=== PATIENT | male | born 1985 | race Caucasian/White ===

== ENCOUNTER 2016-06-21 10:31 | Emergency (ER) | payer MEDICAID ==
[2016-06-21 10:42] VITALS: BP 132/82; PULSE 90; RESP 16; TEMP 97.9; O2SAT 96
--- NOTE | 2016-06-21 11:24 | UCPHY ---
H & P Time Seen by Provider: 06/21/16 11:10 Patient Type: Established HPI/ROS: This patient presents with a chief complaint of pain, photophobia and swelling of the right eye which began during the night. He denies any URI symptoms including runny nose, sore throat, ear pain or cough. He has had no fever. He denies any trauma and does not wear contact lenses. His vision is normal. He denies any discharge Smoking Status: Current every day smoker Physical Exam: This is a well-developed well-nourished male who is in [id number] discomfort. He is alert, lucid and has normal mental status. Examination of the right eye reveals swelling of both lids with some mild injection and obvious photophobia. There is no discharge. Slit-lamp examination reveals an abrasion to the inferior part of the cornea which stains positively with fluorescein. Slit-lamp examination of the upper eyelid discloses no foreign bodies. Constitutional: Initial Vital Signs Temperature (C) 36.6 C 06/21/16 10:40 Heart Rate 90 06/21/16 10:40 Respiratory Rate 16 06/21/16 10:40 Blood Pressure 132/82 H 06/21/16 10:40 O2 Sat (%) 96 06/21/16 10:40 O2 Delivery Mode Room Air Allergies/Adverse Reactions: No Known Allergies Allergy (Verified 06/21/16 10:42) Home Medications: Medication Instructions Recorded GABAPENTIN 05/15/16 Gabapentin [Neurontin 300 MG (*)] 300 mg PO BID #24 cap 06/21/16 Medical Decision Making Differential Diagnosis: I do not believe that this patient has an infectious process but that his symptoms are related to the corneal abrasion is identified. Departure - Departure Disposition: Home, Routine, Self-Care Clinical Impression: Corneal abrasion Qualifiers: Laterality: right Condition: Good Instructions: Corneal Abrasion (ED) Additional Instructions: If your symptoms have not resolved in 3 days you should be re-evaluated. Adult Pain & Fever Control: We recommend Acetaminophen (Tylenol) and Ibuprofen (Motrin, Advil) for pain and fever control. When fever is high or pain severe, both drugs can be used at the same time, but at different intervals. Please note the time differences. Your dose is: Acetaminophen [650]mg every 4 to 6 hours ibuprofen [600]mg every [6] hours with food OR naproxen Sodium (Aleve) [440]mg every 12 hours. Note: do not take Acetaminophen with Hydrocodone (Vicodin, Lortab) or Oxycodone (Percocet). These medications also contain Acetaminophen. No more than 3000 mg of Acetaminophen should be taken in 24 hours (for an adult) . The maximal dose of ibuprofen that it is safe in a 24-hour period is 2400 mg. You may take 400 mg every 4 hours, 600 mg every 6 hours or 800 mg every 8 hours safely. Prescriptions: Gabapentin [Neurontin 300 MG (*)] 300 mg PO BID #24 cap - PQRS PQRS Measurement: Not applicable
== END 2016-06-21 11:25 | disposition home or self-care (01) ==
LOC: CED 10:31
DX: S05.01XA Injury of conjunctiva and corneal abrasion without foreign body, right eye, initial encounter (principal); X58.XXXA Exposure to other specified factors, initial encounter; F17.200 Nicotine dependence, unspecified, uncomplicated
CPT/HCPCS: 99214-PO; G0463-PO

== ENCOUNTER 2016-07-03 18:29 | Emergency (ER) | payer MEDICAID ==
[2016-07-03 18:47] VITALS: BP 128/62; PULSE 132; RESP 18; TEMP 98; O2SAT 95
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
== END 2016-07-03 19:27 | disposition home or self-care (01) ==
LOC: CED 18:29
DX: G62.9 Polyneuropathy, unspecified (principal); F43.10 Post-traumatic stress disorder, unspecified; Z76.5 Malingerer [conscious simulation]
CPT/HCPCS: 99214-PO; G0463-PO

== ENCOUNTER 2016-07-30 19:17 | Emergency (ER) | payer MEDICAID ==
[2016-07-30 19:57] VITALS: BP 144/75; PULSE 106; RESP 18; TEMP 98.1; O2SAT 96
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
== END 2016-07-30 20:31 | disposition home or self-care (01) ==
LOC: CED 19:17
DX: S62.632A Displaced fracture of distal phalanx of right middle finger, initial encounter for closed fracture (principal); W22.8XXA Striking against or struck by other objects, initial encounter; F12.10 Cannabis abuse, uncomplicated
CPT/HCPCS: 73130-PO; 99204-PO; G0463-PO

== ENCOUNTER 2016-08-26 18:53 | Emergency (ER) | payer MEDICAID ==
[2016-08-26 19:16] VITALS: BP 153/106; PULSE 111; RESP 20; TEMP 98.4; O2SAT 93
[2016-08-26] MEDS ORDERED: HYDROmorphONE/DILAUDID 1 MG/ML SYR IVP ONE (19:41)
[2016-08-26] MEDS ORDERED: ONDANSETRON 4 MG/2 ML VIAL IVP ONE (19:41)
[2016-08-26] MEDS ORDERED: NS 1,000 ML IV ONE (19:41)
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
[2016-08-26] MEDS ORDERED: IOPAMIDOL (ISOVUE 370) 100 ML BTL IV ONE (19:56)
[2016-08-26 20:05] LABS: % IMMATURE GRANULYOCYTES 0.3 % (0.0-1.1); ABSOLUTE IMMATURE GRANULOCYTES 0.02 10^3/uL (0.00-0.10); ADD DIFF? NO; ADD MORPH? NO; ADD SCAN? NO; ATYPICAL LYMPHOCYTE FLAG 10 (0-99); FRAGMENT RBC FLAG 0 (0-99); HEMOGLOBIN 15.1 g/dL (13.7-17.5); LEFT SHIFT FLG 0 (0-99); LIPEMIA HEMOLYSIS FLAG 90 (0-99); MEAN CELL HEMOGLOBIN 31.8 pg (27.9-34.1); MEAN CELL HEMOGLOBIN CONCENTR. 35.1 g/dL (32.4-36.7); MEAN CELL VOLUME 90.5 fL (81.5-99.8); MEAN PLATELET VOLUME 10.2 fL (8.7-11.7); PLATELET CLUMPS FLAG 0 (0-99); PLATELET COUNT 234 10^3/uL (150-400); RED BLOOD CELL COUNT 4.75 10^6/uL (4.40-6.38); RED CELL DISTRIBUTION WIDTH 13.2 % (11.5-15.2)
[2016-08-26 20:11] LABS: COLOR YELLOW; LEUKOCYTE ESTERASE,URINE NEGATIVE (NEGATIVE); NITRITE,URINE NEGATIVE (NEGATIVE)
[2016-08-26 20:18] LABS: ALANINE AMINOTRANSFERASE 74 IU/L (21-72); ALBUMIN 3.8 g/dL (3.5-5.0); ALKALINE PHOSPHATASE 73 IU/L (38-126); ANION GAP 16 mEq/L (8-16); ASPARTATE AMINOTRANSFERASE 87 IU/L (17-59); BILIRUBIN,TOTAL 0.3 mg/dL (0.1-1.4); BILIRUBIN-CONJUGATED 0.3 mg/dL (0.0-0.5); CALCIUM 8.7 mg/dL (8.5-10.4); CARBON DIOXIDE 24 mEq/l (22-31); CHLORIDE 105 mEq/L (97-110); GLOMERULAR FILTRATION RATE > 60; GLUCOSE 83 mg/dL (70-100); POTASSIUM 4.1 mEq/L (3.5-5.2); SODIUM 145 mEq/L (134-144); TOTAL PROTEIN 6.5 g/dL (6.3-8.2)
[2016-08-26 21:20] LABS: ETHANOL SERUM 171 mg/dL (0-10)
== END 2016-08-26 22:00 | disposition home or self-care (01) ==
LOC: CED 18:53
DX: K52.9 Noninfective gastroenteritis and colitis, unspecified (principal)
CPT/HCPCS: 74177-PO; 80048-PO; 80076-PO; 81003-PO; 83690-PO; 85025-PO; 96361-PO; 96374-PO; 96375-PO; G0463-PO; G0480; J1170; J2405; Q9967

== ENCOUNTER 2016-11-27 15:36 | Emergency (ER) | payer MEDICAID ==
[2016-11-27 15:54] VITALS: BP 137/93; PULSE 115; RESP 20; TEMP 98.2; O2SAT 95
--- NOTE | 2016-11-27 15:56 | EDPHY ---
H & P HPI/ROS: CHIEF COMPLAINT: Right shoulder and right hamstring pain History by patient HISTORY OF PRESENT ILLNESS: 31-year-old man presents complaining of right shoulder and right hamstring pain which began when he woke up this morning. He also complains of some left-sided low back pain. He says last night he was drinking in at a [employer] and moving some boxes and maybe wrestling but he is not really sure if he any direct trauma. He has tried taking 800 mg of ibuprofen about 6 hours ago with minimal relief. He denies any focal numbness or tingling. He says he wet himself last night but denies any bowel and bladder incontinence today. REVIEW OF SYSTEMS: As in HPI, and all other systems reviewed and are negative Smoking Status: Heavy smoker Physical Exam: General Appearance: Alert, nontoxic-appearing, slightly slurred speech. Eyes: Pupils equal and round no pallor or injection. ENT, Mouth: Mucous membranes moist. Gastrointestinal: Abdomen is soft and nontender, no masses, bowel sounds normal. Neurological: Awake, alert and oriented x 3, no pronator drift, normal gait, no pronator drift, DTRs 2+ and equal bilaterally in knees and ankles, no pain with straight leg raise bilaterally Back: No bony tenderness, mild left lower paralumbar spinous tenderness Skin: Warm and dry, no rashes. Musculoskeletal: Neck is supple nontender. Extremities are symmetrical, full range of motion. No bony tenderness of the right shoulder, full range of motion of the right shoulder, radial, median and ulnar nerves intact sensory and motor, positive small ecchymoses right hamstring , positive abrasion right forearm Psychiatric: Patient has normal affect, there is no agitation. Constitutional: Initial Vital Signs Temperature (C) 36.8 C 11/27/16 15:40 Heart Rate 115 H 11/27/16 15:40 Respiratory Rate 20 11/27/16 15:40 Blood Pressure 137/93 H 11/27/16 15:40 O2 Sat (%) 95 11/27/16 15:40 O2 Delivery Mode Room Air Allergies/Adverse Reactions: No Known Allergies Allergy (Verified 11/27/16 15:54) Home Medications: Medication Instructions Recorded CLONAZEPAM 11/27/16 MDM/Departure - [facility] ED Course/Re-evaluation: 31-year-old man presents with musculoskeletal pain in his back, shoulder and right hamstring with no clear history of trauma but he was drinking alcohol last night. There is no evidence of any acute neurological impairment or significant bony injuries. We discussed home care including Tylenol ibuprofen and icing. Patient requests a refill his gabapentin but I told him he would need to get this from his primary care physician. - Depart Disposition: Home, Routine, Self-Care Clinical Impression: Muscle strain Condition: Good Instructions: Muscle Strain (ED) Additional Instructions: You were seen by Dr. Linda Castañeda today. He may take ibuprofen 600 mg up to 4 times a day as well as Tylenol 1000 mg every 4 hours for your pain. Try icing the painful areas. Follow up with her primary care physician to get your gabapentin refilled. Return for any worsening or new concerns.
== END 2016-11-27 15:58 | disposition home or self-care (01) ==
LOC: CED 15:36
DX: S39.012A Strain of muscle, fascia and tendon of lower back, initial encounter (principal); F17.200 Nicotine dependence, unspecified, uncomplicated; X58.XXXA Exposure to other specified factors, initial encounter

== ENCOUNTER 2017-01-20 16:13 | Emergency (ER) | payer MEDICAID ==
--- NOTE | 2017-01-20 16:34 | EDPHY ---
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 He does not recall any specific injuries. Does have a history of some prior arthritis from football injuries in the past. Has noticed a little bit of swelling. No chest pain or shortness of breath. No recent travel or periods of immobility. Does not have a family history of blood clotting disorders. No numbness or tingling. Patient states hurts most when he dorsiflexes his foot. Pain does not extend above the knee. Has not noticed any discolorations. No fevers or chills. ROS: 10 point Review of Systems is negative except as noted in the HPI. PMH: Hypertension Social History: Positive smoking, occasional alcohol, no recreational drug use Family History: non-contributory Physical Exam: Gen: Awake, Alert, No Distress HEENT: Nose: no rhinorrhea Eyes: PERRLA, EOMI Mouth: Moist mucosa Neck: Supple, no JVD Chest: nontender, lungs clear to auscultation Heart: S1, S2 normal, no murmur Abd: Soft, non-tender, no guarding Back: no CVA tenderness, no midline tenderness Ext: Left calf is tender to palpation. He is no obvious edema but it does measure 1 cm greater in diameter than his right calf. He has normal dorsi and plantar flexion. Sensations intact distally. He has 2+ DP pulses. Capillary refills less than 2 seconds. edema, non-tender Skin: no rash Neuro: CN II-XII intact, Sensation grossly intact, Strength 5/5 in bilateral upper and lower extremities - Personal History Tetanus Vaccine Date: 2012 - Medical/Surgical History Hx Asthma: Yes Hx Chronic Respiratory Disease: No Hx Diabetes: No Hx Cardiac Disease: No Hx Renal Disease: No Hx Cirrhosis: No Hx Alcoholism: No Hx HIV/AIDS: No Hx Splenectomy or Spleen Trauma: No Other PMH: TBI, rotator cuff surgery both shoulders, abd surgery, neuropathy, R leg surgery,chronic pain - Social History Smoking Status: Heavy smoker Constitutional: Initial Vital Signs Temperature (C) 36.8 C 01/20/17 16:29 Heart Rate 132 H 01/20/17 16:29 Respiratory Rate 16 01/20/17 16:29 Blood Pressure 152/100 H 01/20/17 16:29 O2 Sat (%) 98 01/20/17 16:29 O2 Delivery Mode Room Air Allergies/Adverse Reactions: No Known Allergies Allergy (Verified 01/20/17 16:27) Home Medications: Medication Instructions Recorded Ativan 01/20/17 Clonidine 01/20/17 Lyrica 01/20/17 Medical Decision Making - Diagnostics Imaging Results: Imaging Impressions Extremity Venous Study 01/20/17 16:31 Impression: No evidence of deep vein thrombosis. Findings discussed with Bryce Rader MD 01/20/2017 at 17:25. Imaging: Discussed imaging studies w/ metal cut off saw tender Radiologist ED Course/Re-evaluation: Ultrasound of left calf is negative for DVT. Patient does not have symptoms consistent with a Achilles rupture. He has a normal Zepeda's test. Symptoms consistent with a muscle strain. He is knows erythema or findings suggestive of infection. He is completely neurologically intact. Will discharge with alternating ibuprofen and acetaminophen, follow up with primary care physician. Departure - Departure Disposition: Home, Routine, Self-Care Clinical Impression: Muscle strain Condition: Good Instructions: Muscle Strain (ED) Additional Instructions: You may take acetaminophen 1000 mg every 4 hours and ibuprofen 400 mg every 6 hours as needed for pain. Apply ice for 15-20 minutes 4 to 6 times a day. Follow up with primary care doctor in 4-5 days if symptoms are not improving. Referrals: NONE *PRIMARY CARE P,. [Primary Care Provider] - As per Instructions Baldev Jones MD [[facility] Primary Care Provider] - As per Instructions
[2017-01-20 16:38] VITALS: BP 152/100; PULSE 132; RESP 16; TEMP 98.2; O2SAT 98
== END 2017-01-20 17:52 | disposition home or self-care (01) ==
LOC: CED 16:13
DX: S86.912A Strain of unspecified muscle(s) and tendon(s) at lower leg level, left leg, initial encounter (principal); I10 Essential (primary) hypertension; F17.200 Nicotine dependence, unspecified, uncomplicated; J45.909 Unspecified asthma, uncomplicated; X58.XXXA Exposure to other specified factors, initial encounter
CPT/HCPCS: 93971-PO

== ENCOUNTER 2017-04-14 17:48 | Emergency (ER) | payer MEDICAID ==
[2017-04-14 18:08] VITALS: BP 133/90; PULSE 115; RESP 16; TEMP 97.5; O2SAT 95
--- NOTE | 2017-04-14 18:11 | EDPHY ---
H & P Time Seen by Provider: 04/14/17 18:02 HPI/ROS: CHIEF COMPLAINT: "I have peripheral neuropathy" HISTORY OF PRESENT ILLNESS: Patient is a 31-year-old male reports a history of diabetes and peripheral neuropathy who presents to the emergency department complaining of "peripheral neuropathy". He requests a refill of his gabapentin medication. Per report, he states he has not been on this medication for some time. His last refill for this medication was from the emergency department. He was concerned because he is having bilateral foot pain. It is mild to moderate. It is diffuse. He is traveling for [place] and states he will not be able to see a primary care physician. He denies any calf swelling or pain. No foot redness. Patient states he takes gabapentin 400 mg twice daily. REVIEW OF SYSTEMS: My complete review of systems is negative except as mentioned in the HPI. Past Medical/Surgical History: Includes diabetes, peripheral neuropathy Past surgical history: Noncontributory Social history: The patient is a heavy smoker. Occasional alcohol per report. Family history: His father has diabetes and peripheral neuropathy. Smoking Status: Heavy smoker Physical Exam: Vitals noted. Mildly tachycardic. GENERAL: No acute distress, alert. HEENT: PERRLA, no signs of dehydration. Moist mucous membranes. NECK: No thyromegaly, no lymphadenopathy, supple. RESPIRATORY: Patient has scattered wheezing. No accessory muscle use. No rales or rhonchi.. CVS: Tachycardia with regular rhythm, no rubs, murmurs, or gallops. ABDOMEN: Soft, nontender, nondistended, no organomegaly. BACK: Normal to inspection, no CVA tenderness. SKIN: Normal color, no rash, warm, dry. No pallor. EXTREMITIES: No pedal edema, no Homans sign or cords, no joint swelling. Patient has mild diffuse tenderness palpation to soft touch. Normal appearing. NEURO/PSYCH: Alert and oriented x3, normal mood and affect, normal motor sensory exam. No obvious cranial nerve deficit. Allergies/Adverse Reactions: No Known Allergies Allergy (Verified 01/20/17 16:27) Home Medications: Medication Instructions Recorded Ativan 01/20/17 Clonidine 01/20/17 Lyrica 01/20/17 Medical Decision Making ED Course/Re-evaluation: I reviewed the patient's previous medical record. Patient was seen on 2016. At that time he states he had past medical history of hypertension. There is no mention of peripheral neuropathy. Patient was seen on 04/01/2016 and given a medication refill of gabapentin, 600 mg p. o. three times daily today for 30 days. A care plan is noted. In June 2016, the pharmacy was notified that the patient had abuse of gabapentin. I discussed the care plan no with the patient. I do not feel comfortable refilling a prescription of gabapentin at this time. I gave the patient referral to primary care physician to evaluate him for his diabetes and peripheral neuropathy type complaints. Patient was given warnings prior to leaving. He will return with worsening symptoms. Differential Diagnosis: My differential includes but is not limited to withdrawal, leg pain, peripheral neuropathy, DVT, arterial occlusion, cellulitis, bronchitis, COPD Departure - Departure Disposition: Home, Routine, Self-Care Clinical Impression: Foot pain, bilateral, Medication refill Condition: Good Instructions: Peripheral Neuropathy (ED), Arthralgia (ED) Additional Instructions: You need to establish care with a primary care provider. I do not feel comfortable prescribing gabapentin from the emergency department. You been given contact information for primary care provider. Referrals: Amalia Mcdowell MD [Medical Doctor] - 2-3 days, call for appt.
== END 2017-04-14 18:20 | disposition home or self-care (01) ==
LOC: CED 17:48
DX: Z76.0 Encounter for issue of repeat prescription (principal); M79.671 Pain in right foot; M79.672 Pain in left foot; E11.9 Type 2 diabetes mellitus without complications; F17.200 Nicotine dependence, unspecified, uncomplicated

== ENCOUNTER 2017-04-20 09:50 | Emergency (ER) | payer MEDICAID ==
[2017-04-20] MEDS ORDERED: ONDANSETRON 4MG PREPACK#2 BTL TAKEHOME ONE (10:03)
--- NOTE | 2017-04-20 10:05 | EDPHY ---
H & P Time Seen by Provider: 04/20/17 09:56 HPI/ROS: CHIEF COMPLAINT: Alcohol withdrawal, vomiting HISTORY OF PRESENT ILLNESS: Patient is a 31-year-old man who is familiar to me in the department. He comes to the emergency department requesting help with alcohol withdrawal and vomiting. He has vomited once and had diarrhea as well. He is not tremulous or tachycardic but has mildly elevated blood pressure. He denies abdominal pain or fevers. He is requesting Librium that he can take at home. He does have a history of 2 remote bowel resections both posttraumatic. He has never had pancreatitis. REVIEW OF SYSTEMS: Constitutional: denies: chills, fever, recent illness, recent injury EENTM: denies: blurred vision, double vision, nose congestion Respiratory: denies: cough, shortness of breath Cardiac: denies: chest pain, irregular heart rate, lightheadedness, palpitations Gastrointestinal/Abdominal: See HPI Genitourinary: denies: dysuria, frequency, hematuria, pain Musculoskeletal: denies: joint pain, muscle pain Skin: denies: lesions, rash, jaundice, bruising Neurological: denies: headache, numbness, paresthesia, tingling, dizziness, weakness Hematologic/Lymphatic: denies: blood clots, easy bleeding, easy bruising Immunologic/allergic: denies: HIV/AIDS, transplant EXAM: GENERAL: Well-appearing, well-nourished and in no acute distress. HEAD: Atraumatic, normocephalic. EYES: Pupils equal round and reactive to light, extraocular movements intact, sclera anicteric, conjunctiva are normal. ENT: TMs normal, nares patent, oropharynx clear without exudates. Moist mucous membranes. NECK: Normal range of motion, supple without lymphadenopathy or JVD. LUNGS: Breath sounds clear to auscultation bilaterally and equal. No wheezes rales or rhonchi. HEART: Not tachycardic, Regular rate and rhythm without murmurs, rubs or gallops. ABDOMEN: Soft, nontender, normoactive bowel sounds. No guarding, no rebound. No masses appreciated. BACK: No CVA tenderness, no spinal tenderness, step-offs or deformities EXTREMITIES: Normal range of motion, no pitting or edema. No clubbing or cyanosis. NEUROLOGICAL: Not tremulous, Cranial nerves II through XII grossly intact. Normal speech, normal gait. 5/5 strength, normal movement in all extremities, normal sensation PSYCH: Normal mood, normal affect. SKIN: Warm, dry, normal turgor, no visible rashes or lesions. Source: Patient, Old records Exam Limitations: No limitations - Personal History Tetanus Vaccine Date: 2012 - Medical/Surgical History Hx Asthma: Yes Hx Chronic Respiratory Disease: No Hx Diabetes: No Hx Cardiac Disease: No Hx Renal Disease: No Hx Cirrhosis: No Hx Alcoholism: No Hx HIV/AIDS: No Hx Splenectomy or Spleen Trauma: No Other PMH: TBI, rotator cuff surgery both shoulders, abd surgery, neuropathy, R leg surgery,chronic pain - Family History Significant Family History: No pertinent family hx - Social History Smoking Status: Heavy smoker Alcohol Use: Heavy Drug Use: Marijuana, Other Constitutional: Initial Vital Signs Temperature (C) 36.8 C 04/20/17 09:59 Heart Rate 109 H 04/20/17 09:59 Respiratory Rate 18 04/20/17 09:59 Blood Pressure 158/118 H 04/20/17 09:59 O2 Sat (%) 94 04/20/17 09:59 O2 Delivery Mode Room Air Allergies/Adverse Reactions: No Known Allergies Allergy (Verified 01/20/17 16:27) Home Medications: Medication Instructions Recorded Ativan 01/20/17 Clonidine 01/20/17 Lyrica 01/20/17 carBAMazepine [Tegretol] 04/20/17 Medical Decision Making ED Course/Re-evaluation: The patient has a CIWA score of 2 which is very minimal. He is not in significant withdrawal currently. He does appear mildly intoxicated just in examining him. I am concerned about his 9-month-old daughter. He states that the mom has . He has a friend taking care of the daughter right now. He states that the friend cannot stay and has to go to work. I recommended that we treat the patient with Librium [facility]. He refused this stating that he cannot go because he has to take care of his daughter. I told him I am concerned about his ability to take care of his daughter if he is drinking or withdrawing or if he is on benzodiazepines. None of these seem to be good options. In the end we agreed that he will go home to make arrangements for someone to care for his daughter and then he may return here or to the [facility] for treatment of his withdrawals. The patient has a history of narcotic, benzodiazepine and gabapentin abuse. I do not feel comfortable prescribing any these medications for him to take at home. His abdominal exam is completely benign. He initially complained of vomiting blood at triage but now denies this and is not concerned about it. Differential Diagnosis: Partial list of the Differential diagnosis considered include but were not limited to; alcohol withdrawal, intoxication, vomiting, dehydration and although unlikely based on the history and physical exam, I also considered obstruction, ischemia, pancreatitis, biliary disease. I discussed these differential diagnoses and the plan with the patient as well as the usual and expected course. The patient understands that the diagnosis is provisional and that in medicine we are not always correct and that further workup is often warranted. Usual and customary warnings were given. All of the patient's questions were answered. The patient was instructed to return to the emergency department should the symptoms at all worsen or return, otherwise to followup with the physician as we discussed. - Data Points Medications Given: Discontinued Medications Ondansetron HCl (Zofran Odt 4 Mg Prepack#2) 1 btl TAKEHOME EDNOW ONE Stop: 04/20/17 10:04 Last Admin: 04/20/17 10:20 Dose: 1 btl Departure - Departure Disposition: Home, Routine, Self-Care Clinical Impression: Alcohol withdrawal Qualifiers: Complication of substance-induced condition: uncomplicated Qualified Code(s): F10.230 - Alcohol dependence with withdrawal, uncomplicated Condition: Fair Instructions: Ondansetron (By mouth), Alcohol Withdrawal (ED) Additional Instructions: Make arrangements for your child as we discussed and then return here for treatment for alcohol withdrawal or present to the [facility] recovery [facility]. Referrals: [facility],. [Clinic] - As per Instructions
[2017-04-20 10:06] VITALS: RESP 18
[2017-04-20 10:28] VITALS: BP 160/120; PULSE 102; TEMP 98.6; O2SAT 98
== END 2017-04-20 10:24 | disposition home or self-care (01) ==
LOC: CED 09:50
DX: F10.230 Alcohol dependence with withdrawal, uncomplicated (principal); J45.909 Unspecified asthma, uncomplicated; F17.200 Nicotine dependence, unspecified, uncomplicated

== ENCOUNTER 2017-05-02 15:02 | Emergency (ER) | payer MEDICAID ==
[2017-05-02] MEDS ORDERED: IBUPROFEN 200 MG TAB PO ONE (15:25)
[2017-05-02 15:30] VITALS: RESP 20
--- NOTE | 2017-05-02 15:52 | EDPHY ---
HPI/HX/ROS/PE/MDM Narrative: CHIEF COMPLAINT: Right rib pain HPI: The patient is a 31-year-old male with long history of alcohol and drug abuse hand with multiple visits to the ER over the last few years. He states that yesterday he was moving some chairs when the top of 1 chair struck him in the right upper ribcage. He had only minor pain at that time but has since developed severe pain in that area with coughing. He states that he is only taking ibuprofen for this. He denies fever or vomiting. He denies abdominal injury. Pain is worse with palpation and movement. REVIEW OF SYSTEMS: Aside from elements discussed in the HPI, a comprehensive 10-point review of systems was reviewed and is negative. PMH: Includes polysubstance abuse, alcohol abuse. SOCIAL HISTORY: Patient denies alcohol and drug abuse to myself. PHYSICAL EXAM: General:Patient is alert, in no acute distress. ENT:Eyes are normal to inspection. ENT inspection normal. Neck: Normal inspection. Full range of motion. Respiratory:No respiratory distress. Breath sounds normal bilaterally. No external sign of trauma on the chest wall. Area is diffusely tender but it is difficult exam. Cardiovascular: Regular rate and rhythm. Strong peripheral pulses. Normal cap refill. Abdomen:The abdomen is nontender to palpation. There are no peritoneal signs. There are normal bowel sounds. Back: Normal to inspection. No tenderness to palpation. Skin: Mild urticaria noted on bilateral upper extremities. Extremities: Normal appearance. Full range of motion. Neuro: Oriented x3. Normal motor function. Normal sensory function. MDM: This patient presents with isolated reproducible chest wall pain after minor trauma. Exam is normal, and CXR/rib series shows no sign of PTX or rib fracture. Pain is clearly reproducible with movement and palpation, so I have low suspicion for non-traumatic process such as PE or ACS. Patient has long history of drug and alcohol abuse so I have declined his request for pain medication other than NSAIDs. He incidentally notes minor rash on his arms with seems consistent with contact dermatitis or urticaria but there are no signs of anaphylaxis or emergent condition. - Data Points Imaging Results: CXR: No PTX or fracture. Imaging: Discussed imaging studies w/ call or contact centre operator Radiologist, I viewed and interpreted images myself Medications Given: Discontinued Medications Ibuprofen (Motrin) 400 mg PO EDNOW ONE Stop: 05/02/17 15:26 Last Admin: 12/16/17 15:37 Dose: 400 mg General Time Seen by Provider: 05/02/17 15:22 Initial Vital Signs: Initial Vital Signs Temperature (C) 36.9 C 05/02/17 15:27 Heart Rate 106 H 05/02/17 15:27 Respiratory Rate 20 05/02/17 15:27 Blood Pressure 128/99 H 05/02/17 15:27 O2 Sat (%) 94 05/02/17 15:27 O2 Delivery Mode Room Air Allergies/Adverse Reactions: No Known Allergies Allergy (Verified 01/20/17 16:27) Home Medications: Medication Instructions Recorded Ativan 01/20/17 Clonidine 01/20/17 Lyrica 01/20/17 carBAMazepine [Tegretol] 04/20/17 Departure - Departure Disposition: Home, Routine, Self-Care Clinical Impression: Contusion, chest wall, Hives Condition: Good Instructions: Additional Information Additional Instructions: Return to the ER for chest pain, difficulty breathing or other concerns. Use ibuprofen as directed. Take Benadryl as directed for rash.
[2017-05-02 16:28] VITALS: BP 132/92; PULSE 94; TEMP 98.1
[2017-05-02 16:31] VITALS: O2SAT 96
== END 2017-05-02 16:33 | disposition home or self-care (01) ==
LOC: CED 15:02
DX: S20.211A Contusion of right front wall of thorax, initial encounter (principal); L50.9 Urticaria, unspecified; W22.03XA Walked into furniture, initial encounter
CPT/HCPCS: 71101-PO

== ENCOUNTER 2017-06-23 17:52 | Inpatient (IN) | payer MEDICAID ==
[2017-06-23] MEDS ORDERED: LORazepam 2 MG/ML INJ ONE (18:17)
[2017-06-23] MEDS ORDERED: ONDANSETRON 4 MG/2 ML VIAL ONE (18:19)
[2017-06-23] MEDS ORDERED: ONDANSETRON 4 MG/2 ML VIAL IVP ONE (18:22)
[2017-06-23] MEDS ORDERED: LORazepam 2 MG/ML INJ IVP ONE ×4 (18:22→20:17)
[2017-06-23] MEDS ORDERED: NS 1,000 ML IV ONE ×2 (18:33→19:44)
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
[2017-06-23 19:01] LABS: PLATELET COUNT 334 10^3/uL (150-400)
[2017-06-23] MEDS ORDERED: ONDANSETRON 4 MG/2 ML VIAL IVP PRN (19:36)
[2017-06-23] MEDS ORDERED: ACETAMINOPHEN 325 MG TAB PO PRN (19:36)
[2017-06-23] MEDS ORDERED: PROMETHAZINE HCL 25 MG TAB PO PRN (19:36)
[2017-06-23] MEDS ORDERED: PROMETHAZINE HCL 25 MG/ML INJ IVP PRN (19:36)
[2017-06-23] MEDS ORDERED: ONDANSETRON DISINTEGRATING 4 MG TAB PO PRN (19:36)
[2017-06-23] MEDS ORDERED: D5W 1/2 NS W/ 20 KCl/L 1,000 ML IV SCH (19:45)
--- NOTE | 2017-06-23 20:07 | PDGENHP ---
History and Physical - Chief Complaint Acute malaise - History of Present Illness Primary care provider: Dr. Olga Martin HPI: 31-year-old male presenting with acute general malaise characterized as nausea, vomiting, pain located in his upper abdomen, tremulousness, expressive aphasia, myalgias, with onset of symptoms early afternoon on the day of presentation and duration persistent thereafter. The patient reports that his last alcoholic beverage was around noon on the day of presentation, and he reportedly had couple shots of hard liquor this morning to alleviate his tremulousness and malaise. The patient felt like he was at risk for seizure and decided that he wanted to safely withdraw from alcohol. Consequently, the patient and his father presented to [facility]. Since receiving the Ativan at [facility], the patient reports that his symptoms have been somewhat alleviated and he feels like he is able to tolerate Jell-O and some low volume liquids. He does report ongoing joint pain from his chronic neuropathy and he would like his scheduled dose of Lyrica. The patient reports that on the evening prior to presentation, he binged on alcohol, and he had not been experiencing any other infectious symptoms or complaints outside have his normal aches and pains. History Information - Allergies/Home Medication List Allergies/Adverse Reactions: bee pollen Allergy (Verified 06/23/17 18:15) Home Medications: Cyclobenzaprine [Flexeril 10 MG (*)] 10 mg PO TID PRN 06/23/17 [Last Taken Unknown] Dextroamphetamine/Amphetamine [Adderall Xr 20 mg Capsule] 20 mg PO DAILY [Last Taken 06/22/17] Pregabalin [Lyrica 150mg (*)] 150 mg PO TID 06/23/17 [Last Taken 06/23/17 09:00] clonIDINE [Catapres (*)] 0.1 mg PO TID 06/23/17 [Last Taken 06/23/17 09:00] clonazePAM [klonoPIN (*)] 1 mg PO BID PRN 06/23/17 [Last Taken 06/22/17] traZODone [traZODONE 50MG (*)] 100 mg PO HS 06/23/17 [Last Taken 06/22/17] I have personally reviewed and updated: family history, medical history, social history, surgical history - Past Medical History Additional medical history: Alcoholism with withdraw seizures. Polypharmacy overdose 2015. Anxiety Disorder (therapist Vero Cordova). Neuropathy. Chronic pain. Frequent presentations for alcohol related injuries. Traumatic brain in - Surgical History Additional surgical history: X lap as a child. Right leg surgery - Family History Additional family history: No seizure disorder of Suicide attempt - Social History Smoking Status: Heavy smoker Alcohol Use: Heavy Drug Use: Marijuana Additional social history: Independent in his ADLs comma the patient lives with his father Review of Systems Review of Systems: Constitutional: Reports: malaise Gastrointestinal: Reports: vomitting, abdominal pain, diarrhea, nausea Muscolosketal: Reports: muscle pain Neurological: Reports: tremors Physical Exam Physical Exam: Temp Pulse Resp BP Pulse Ox 36.7 C 103 H 24 H 106/86 H 96 06/23/17 18:17 06/23/17 19:48 06/23/17 19:48 06/23/17 19:48 06/23/17 19:48 Constitutional: no apparent distress, not in pain, chronically ill appearing, uncomfortable Eyes: PERRL, anicteric sclera, EOMI Ears, Nose, Mouth, Throat: moist mucous membranes, hearing normal, ears appear normal, no oral mucosal ulcers Cardiovascular: tachycardia, No systolic murmur, No irregularly irregular, No edema Respiratory: expiratory wheeze, No reduced air movement, No inspiratory crackles , No bronchial breath sounds, No respiratory distress Gastrointestinal: normoactive bowel sounds, soft, non-tender abdomen, no palpable masses, No distension Genitourinary: no bladder fullness, no bladder tenderness Skin: warm, No rash Neurologic: AAOx3, sensation intact bilaterally, asterixes (Mild in the upper extremities, most notably in the tongue), other (Visible tremulousness, no nystagmus), No weakness (Motor strength 5/5 bilateral upper and lower extremities) Psychiatric: interacting appropriately, not encephalopathic, anxious, No agitated Lab Data & Imaging Review 06/23/17 18:30 06/23/17 18:30 WBC 6.97 10^3/uL (3.80-9.50) 06/23/17 18:30 RBC 5.28 10^6/uL (4.40-6.38) 06/23/17 18:30 Hgb 16.5 g/dL (13.7-17.5) 06/23/17 18:30 Hct 46.0 % (40.0-51.0) 06/23/17 18:30 MCV 87.1 fL (81.5-99.8) 06/23/17 18:30 MCH 31.3 pg (27.9-34.1) 06/23/17 18: MCHC 35.9 g/dL (32.4-36.7) 06/23/17 18: RDW 12.3 % (11.5-15.2) 06/23/17 18:30 Plt Count 334 10^3/uL (150-400) 06/23/17 18: MPV 10.6 fL (8.7-11.7) 06/23/17 18: Neut % (Auto) 62.9 % (39.3-74.2) 06/23/17: Lymph % (Auto) 26.5 % (15.0-45.0) 06/23/17: [place] % (Auto) 8.6 % (4.5-13.0) 06/23/17 18: Eos % (Auto) 1.3 % (0.6-7.6) 06/23/17: Baso % (Auto) 0.6 % (0.3-1.7) 06/23/17: Nucleat RBC Rel Count 0.0 % (0.0-0.2) 06/23/17 18: Absolute Neuts (auto) 4.38 10^3/uL (1.70-6.50) 06/23/17 18: Absolute Lymphs (auto) 1.85 10^3/uL (1.00-3.00) 06/23/17 18:30 Absolute Monos (auto) 0.60 10^3/uL (0.30-0.80) 06/23/17 18:30 Absolute Eos (auto) 0.09 10^3/uL (0.03-0.40) 06/23/17 18: Absolute Basos (auto) 0.04 10^3/uL (0.02-0.10) 06/23/17 18: Absolute Nucleated RBC 0.00 10^3/uL (0-0.01) 06/23/17 18:30 Immature Gran % 0.1 % (0.0-1.1) 06/23/17 18:30 Immature Gran # 0.01 10^3/uL (0.00-0.10) 06/23/17 18:30 Sodium 143 mEq/L (135-145) 06/23/17 18:30 Potassium 3.9 mEq/L (3.5-5.2) 06/23/17 18:30 Chloride 102 mEq/L (97-110) 06/23/17 18:30 Carbon Dioxide 21 mEq/l (22-31) L 06/23/17 18:30 Anion Gap 20 mEq/L (8-16) H 06/23/17 18:30 BUN 9 mg/dL (7-23) 06/23/17 18:30 Creatinine 1.0 mg/dL (0.7-1.3) 06/23/17 18:30 Estimated GFR > 60 06/23/17 18:30 Glucose 101 mg/dL (70-100) H 06/23/17 18:30 Calcium 9.7 mg/dL (8.5-10.4) 06/23/17 18:30 Total Bilirubin 0.4 mg/dL (0.1-1.4) 06/23/17 18:30 Conjugated Bilirubin 0.2 mg/dL (0.0-0.5) 06/23/17 18:30 Unconjugated Bilirubin 0.2 mg/dL (0.0-1.1) 06/23/17 18:30 AST 45 IU/L (17-59) 06/23/17 18:30 ALT 48 IU/L (21-72) 06/23/17 18:30 Alkaline Phosphatase 110 IU/L (38-126) 06/23/17 18:30 Total Protein 7.2 g/dL (6.3-8.2) 06/23/17 18:30 Albumin 4.4 g/dL (3.5-5.0) 06/23/17 18:30 Lipase 96 IU/L (23-300) 06/23/17 18:30 Ethyl Alcohol 57 mg/dL (0-10) H 06/23/17 18:30 Assessment & Plan Assessment: 31 yo M p/w acute alcohol withdraw Plan: # Alcohol withdraw. Acute, new problem, further w/u indicated. EtOH level 57, desires sobriety, evidenced by tremors/tachycardia/GI sx - place on CIWA, high risk seizure given past hx - ordered outside records from [facility] given reported hx of recent hospitalization for withdraw - d/w Dr. Lovell, she reports 2mg ativan in [facility], we agree safe for med surg unit at this time - monitor lytes/liver panel - get tox screen - asst on resources, patient amenable # Anxiety. Chronic, baseline anxiety disorder, cont home Rx once reconciled - reviewed outside records, 07/19/14 H&P [address] Dr. Garvey, reports his most recent hospitalization for polypharmacy unintentional OD w/ wellbutrin, lyrica, and possibly other substances - continue home dosage of Klonopin as needed - [facility] resource RN appreciated # Possible gastritis. In setting of alcohol binging and GI sx - give PO ppi, IVF, supportive care # Neuropathy. Chronic, cont lyrica # Metabolic acidosis. Acute, anion gap, likely starvation ketosis, cont IVF and repeat in AM Diet. Clears PPx. Low risk, SCDs, pharm if remaining in bed Code. Full Dispo. ADD uncertain, pending stabilization of above, withdraw appears to be escalating and will likely require > 48hrs of inpatient mgmt.
[2017-06-23] MEDS ORDERED: CALCIUM CARBONATE 500 MG CHEWABLE TAB PO PRN (20:10)
[2017-06-23] MEDS: LORazepam 2 MG/ML INJ IVP PRN (21:33)
[2017-06-23] MEDS: PANTOPRAZOLE SODIUM 40 MG TAB PO SCH (22:10)
[2017-06-23] MEDS: PREGABALIN 150 MG CAP PO SCH (22:10)
[2017-06-23] MEDS: LORazepam 1 MG TAB PO PRN (23:11)
[2017-06-24] MEDS: LORazepam 2 MG/ML INJ IVP PRN ×7 (02:38→21:13)
[2017-06-24 04:53] LABS: PLATELET COUNT 248 10^3/uL (150-400)
[2017-06-24] MEDS: LORazepam 1 MG TAB PO PRN ×3 (05:05→16:17)
[2017-06-24 05:09] LABS: INR 1.04 (0.83-1.16); PROTIME(PATIENT) 13.8 SEC (12.0-15.0)
[2017-06-24] MEDS: NICOTINE POLACRILEX 2 MG GUM B PRN ×3 (06:37→20:18)
[2017-06-24] MEDS: PREGABALIN 150 MG CAP PO SCH ×3 (08:16→21:13)
[2017-06-24] MEDS: PANTOPRAZOLE SODIUM 40 MG TAB PO SCH (08:16)
[2017-06-24] MEDS: clonazePAM 1 MG TAB PO PRN ×2 (08:17→20:18)
[2017-06-24] MEDS: NICOTINE 21 MG/24 HR PATCH TD SCH (08:17)
[2017-06-24] MEDS: THIAMINE HCL 500 MG in NS 250 ML IV SCH (08:22)
[2017-06-24] MEDS ORDERED: DEXTROAMPHETAMINE PO SCH (09:00)
[2017-06-24] MEDS ORDERED: AMPHETAMINE PO SCH (09:00)
[2017-06-24] MEDS: ADDERALL 10 MG TAB PO SCH (10:04)
[2017-06-24] MEDS: CYCLOBENZAPRINE 10 MG TAB PO PRN ×2 (11:39→16:09)
--- NOTE | 2017-06-24 13:05 | HOSPPROG ---
Hospitalist Progress Note Assessment/Plan: 31 yo M p/w acute alcohol withdrawal. Today is my first encounter with the patient, chart reviewed. *alcohol withdrawal CIWA ETOH 57 on admission patient desire sobriety says he drinks to deal with stress of being in [place] says he has had seizures in the past when he withdraws *anxiety Klonopin patient also on Adderall/? if this contributes to his anxiety, he says it helps him has a psychiatrist he sees *nicotine dependence patch/ recommended cessation, smokes 1/2 pack daily *asthma has some wheezing, hesitant to add albuterol with his withdrawals and anxiety will monitor for now *Gastritis eating and drinking well *Neuropathy Lyrica *metabolic acidosis resolved w hydration *itching avoid Benadryl due to sedation scheduled Pepcid to see if this helps Diet. regular Plan: should dc in the next or so. Of note, he lost his back pack with all of his medications. Requested refills. He will need to f/u with his PCP for refills. Sherif told him to call his PCP.DC IV fluids. PPx. Low risk, SCD Dispo. Pending. Subjective: Rhys said he is grateful he is in the hospital. Objective: Vital Signs Temp Pulse Resp BP Pulse Ox 36.9 C 93 18 137/81 H 95 06/24/17 11:07 06/24/17 11:07 06/24/17 11:07 06/24/17 11:07 06/24/17 11:07 Laboratory Results 06/24/17 04:46 06/24/17 04:46 06/23/17 06/24/17 06/25/17 05:59 05:59 05:59 Intake Total 300 Output Total 250 Balance 50 PT 13.8 SEC (12.0-15.0) 06/24/17 04:46 INR 1.04 (0.83-1.16) 06/24/17 04:46 - Physical Exam Constitutional: no apparent distress, appears nourished, not in pain Eyes: PERRL Ears, Nose, Mouth, Throat: hearing normal Cardiovascular: regular rate and rhythym, No tachycardia Respiratory: expiratory wheeze Gastrointestinal: normoactive bowel sounds Skin: warm Musculoskeletal: full muscle strength Neurologic: AAOx3 Psychiatric: interacting appropriately ICD10 Worksheet Patient Problems: Problems Problem Status Onset Alcohol withdrawal Acute Abdominal pain Acute Bronchitis Acute Drug overdose Acute Enteritis Acute Medication refill Acute
[2017-06-24] MEDS: FAMOTIDINE 20 MG TAB PO SCH ×2 (13:34→20:17)
--- NOTE | 2017-06-24 15:04 | PDMN ---
Medical Necessity Medical necessity: est los>2mn for acute etoh withdrawal, w/high risk for sz per hx, possible gastritis, and metabolic acidosis; admit for CIWA, IVF; comorbid anxiety, neuropathy, chronic pain and TBI; per order and H&P 06/23/17
[2017-06-24] MEDS: traZODone 100 MG TAB PO SCH (21:13)
[2017-06-25] MEDS: LORazepam 2 MG/ML INJ IVP PRN ×4 (00:45→12:55)
[2017-06-25] MEDS: clonazePAM 1 MG TAB PO PRN ×2 (05:47→15:24)
[2017-06-25] MEDS: PREGABALIN 150 MG CAP PO SCH ×3 (07:51→21:33)
[2017-06-25] MEDS: FAMOTIDINE 20 MG TAB PO SCH ×2 (07:51→21:33)
[2017-06-25] MEDS: ADDERALL 10 MG TAB PO SCH (07:51)
[2017-06-25] MEDS: PANTOPRAZOLE SODIUM 40 MG TAB PO SCH (07:52)
[2017-06-25] MEDS: NICOTINE 21 MG/24 HR PATCH TD SCH (07:52)
--- NOTE | 2017-06-25 08:20 | HOSPPROG ---
Hospitalist Progress Note Assessment/Plan: 31 yo M p/w acute alcohol withdrawal. *alcohol withdrawal CIWA ETOH 57 on admission patient desire sobriety says he drinks to deal with stress of being in [place] says he has had seizures in the past when he withdraws *anxiety Klonopin patient also on Adderall/? if this contributes to his anxiety, he says it helps him has a psychiatrist he sees *nicotine dependence patch/ recommended cessation, smokes 1/2 pack daily *asthma has some wheezing, hesitant to add albuterol with his withdrawals and anxiety will monitor for now *Gastritis eating and drinking well *Neuropathy Lyrica *metabolic acidosis resolved w hydration *itching avoid Benadryl due to sedation scheduled Pepcid to see if this helps Diet. regular Plan: should dc in the next or so. Of note, he lost his back pack with all of his medications. Requested refills. He will need to f/u with his PCP for refills. PDMP reviewed per pharmacy, he had 15 day supply of Klonopin filled on Jun 16 and 30 day supply of Adderal on Jun 17 PPx. Low risk, SCD Dispo. Pending. Subjective: Rhys is very appreciative about going through detox, said he had nightmares last night. Objective: Vital Signs Temp Pulse Resp BP Pulse Ox 36.6 C 102 H 18 124/85 H 95 06/25/17 07:08 06/25/17 07:08 06/25/17 07:08 06/25/17 07:08 06/25/17 07:08 Laboratory Results 06/24/17 04:46 06/24/17 04:46 06/24/17 06/25/17 06/26/17 05:59 05:59 05:59 Intake Total 300 1880 Output Total 250 Balance 50 1880 PT 13.8 SEC (12.0-15.0) 06/24/17 04:46 INR 1.04 (0.83-1.16) 06/24/17 04:46 - Physical Exam Constitutional: appears nourished Eyes: PERRL Ears, Nose, Mouth, Throat: hearing normal Cardiovascular: regular rate and rhythym, No tachycardia Respiratory: no respiratory distress, expiratory wheeze Gastrointestinal: normoactive bowel sounds Skin: warm Musculoskeletal: full muscle strength Neurologic: AAOx3 Psychiatric: interacting appropriately ICD10 Worksheet Patient Problems: Problems Problem Status Onset Alcohol withdrawal Acute Abdominal pain Acute Bronchitis Acute Drug overdose Acute Enteritis Acute Medication refill Acute
[2017-06-25] MEDS: THIAMINE HCL 500 MG in NS 250 ML IV SCH (08:59)
[2017-06-25] MEDS: CYCLOBENZAPRINE 10 MG TAB PO PRN (15:25)
[2017-06-25] MEDS ORDERED: DIPHENHYDRAMINE CREAM TP PRN (15:33)
--- NOTE | 2017-06-25 15:57 | ASMTCMCOM ---
CM Note CM Note Notes: DC needs unclear, pt is detoxing from alcohol. Per MD note, has ptsd from being in [place], pt desires to stop drinking. [employer] ordered consult with Agata Barraza, pt has a psychiatrist at [facility]. Pt signed a release of records. DC Plan: TBD Date Signed: 06/25/2017 03:56 PM Electronically Signed By:Agata Navas RN
[2017-06-25] MEDS: CETIRIZINE 10 MG TAB PO SCH (17:38)
[2017-06-25] MEDS: LORazepam 1 MG TAB PO PRN ×2 (17:42→21:48)
[2017-06-25 19:55] VITALS: RESP 16
[2017-06-25] MEDS: traZODone 100 MG TAB PO SCH (21:33)
[2017-06-25] MEDS: TRIAMCINOLONE 0.5% 15GM CREAM TP SCH (21:35)
[2017-06-26] MEDS: CYCLOBENZAPRINE 10 MG TAB PO PRN ×3 (02:06→09:27)
[2017-06-26] MEDS: LORazepam 1 MG TAB PO PRN (02:06)
[2017-06-26 08:02] VITALS: BP 117/81; PULSE 93; TEMP 98.4; O2SAT 94
--- NOTE | 2017-06-26 09:06 | HOSPPROG ---
Hospitalist Progress Note Assessment/Plan: 31 yo M p/w acute alcohol withdrawal. *alcohol withdrawal CIWA ETOH 57 on admission patient desire sobriety says he drinks to deal with stress of being in [place] says he has had seizures in the past when he withdraws much better today *anxiety Klonopin patient also on Adderall/? if this contributes to his anxiety, he says it helps him has a psychiatrist he sees *nicotine dependence patch/ recommended cessation, smokes 1/2 pack daily *contact dermatitis much improved today *asthma has some wheezing, hesitant to add albuterol with his withdrawals and anxiety will monitor for now *Gastritis eating and drinking well *Neuropathy Lyrica *metabolic acidosis resolved w hydration *itching avoid Benadryl due to sedation scheduled Pepcid to see if this helps Diet. regular Plan: dc today, patient is requesting script for lyrica, will give him a few doses PPx. Low risk, SCD Subjective: Rhys is better today. Objective: Vital Signs Temp Pulse Resp BP Pulse Ox 36.9 C 93 16 117/81 H 94 06/26/17 08:00 06/26/17 08:00 06/26/17 08:00 06/26/17 08:00 06/26/17 08:00 Laboratory Results 06/24/17 04:46 06/24/17 04:46 06/25/17 06/26/17 06/27/17 05:59 05:59 05:59 Intake Total 1879 1939 Balance 1879 1939 PT 13.8 SEC (12.0-15.0) 06/24/17 04:46 INR 1.04 (0.83-1.16) 06/24/17 04:46 - Physical Exam Constitutional: no apparent distress Eyes: PERRL Ears, Nose, Mouth, Throat: hearing normal Gastrointestinal: normoactive bowel sounds Skin: warm, other (diffuse rash, dermatitis, much improved today since I evaluated him last night) Musculoskeletal: full muscle strength Neurologic: AAOx3 Psychiatric: interacting appropriately ICD10 Worksheet Patient Problems: Problems Problem Status Onset Alcohol withdrawal Acute Abdominal pain Acute Bronchitis Acute Drug overdose Acute Enteritis Acute Medication refill Acute
[2017-06-26] MEDS: THIAMINE HCL 500 MG in NS 250 ML IV SCH (09:12)
[2017-06-26] MEDS: CETIRIZINE 10 MG TAB PO SCH (09:12)
[2017-06-26] MEDS: FAMOTIDINE 20 MG TAB PO SCH (09:12)
[2017-06-26] MEDS: clonazePAM 1 MG TAB PO PRN (09:13)
[2017-06-26] MEDS: ADDERALL 10 MG TAB PO SCH (09:13)
[2017-06-26] MEDS: NICOTINE 21 MG/24 HR PATCH TD SCH (09:13)
[2017-06-26] MEDS: PREGABALIN 150 MG CAP PO SCH (09:13)
--- NOTE | 2017-06-26 10:05 | GDS ---
[f rep st] DISCHARGE SUMMARY DISCHARGE DIAGNOSES: 1. Alcohol withdrawal. 2. Anxiety. 3. Nicotine dependence. 4. Contact dermatitis. 5. Asthma. 6. Gastritis. 7. Neuropathy. 8. Metabolic acidosis. 9. Pruritus. HISTORY OF PRESENT ILLNESS: Briefly, Mr. Reyna is a 31-year-old gentleman, who presented to the ER, wishing to abstain from alcohol. He was admitted to help him deal with this process. Today, he will be discharged back home. His vital signs are stable. HOSPITAL COURSE BY PROBLEM: 1. Alcohol withdrawal. His alcohol level was 57 on admission. He is much better today. He is not tachycardic and doing well. 2. Anxiety. He takes Klonopin. He also takes Adderall for his PTSD. He has a psychiatrist he sees. 3. Contact dermatitis, much improved. He will get a prescription for topical cream for this. 4. Asthma. Recommending that he take Zyrtec daily. 5. Gastritis. He has been eating and drinking well. 6. Neuropathy, on Lyrica. 7. Metabolic acidosis, resolved. DISCHARGE CONDITION: Stable. Blood pressure is 117/81, heart rate is 93, respiratory rate is 16, O2 sats on room air 94%, temperature is 36.9 Celsius. MEDICATIONS AT DISCHARGE: Please see the EMR. DISCHARGE INSTRUCTIONS: 1. He ran out of his prescription for Lyrica. I will give him 6 more, and have him follow up with his primary care provider. 2. [facility]. They got a great support system. Also recommendations for him to get involved with are the [employer] [place], or the [employer], or [facility]. Recommended that he stop all alcohol. 3. Abstain from alcohol. It is greatly impacting his life. Greater than 30 minutes discharging and coordinating the patient's care. /[id number]/MODL MTDD
[2017-06-26] MEDS: TRIAMCINOLONE 0.5% 15GM CREAM TP SCH (12:13)
[2017-06-27] MEDS ORDERED: THIAMINE HCL 100 MG TAB PO SCH (09:00)
== END 2017-06-26 12:04 | disposition home or self-care (01) | DRG 897 ==
LOC: CED 17:52 → CEDHOLD 19:36 → F3E 21:19 → OBSVTOIN 21:38
PROVIDERS: ADMIT Internal Medicine; ATTEND Internal Medicine
DX: F10.239 Alcohol dependence with withdrawal, unspecified (principal); E87.2 Acidosis; Y90.2 Blood alcohol level of 40-59 mg/100 ml; F41.9 Anxiety disorder, unspecified; F17.200 Nicotine dependence, unspecified, uncomplicated; L25.9 Unspecified contact dermatitis, unspecified cause; J45.909 Unspecified asthma, uncomplicated; K29.70 Gastritis, unspecified, without bleeding; G62.9 Polyneuropathy, unspecified; L29.9 Pruritus, unspecified; F43.10 Post-traumatic stress disorder, unspecified
CPT/HCPCS: 80048-PO; 80076-PO; 80307; 80307-PO; 81003-PO; 81015-PO; 83690-PO; 85025-PO; 92610-GN; 96374; G0480; J1200; J2060; J2405; J3411

== ENCOUNTER 2017-07-28 20:48 | Emergency (ER) | payer MEDICAID ==
[2017-07-28 20:56] VITALS: RESP 18
[2017-07-28] MEDS ORDERED: LORazepam 2 MG/ML INJ IVP ONE ×2 (21:00→22:00)
[2017-07-28] MEDS ORDERED: NS 1,000 ML IV ONE (21:00)
[2017-07-28] MEDS ORDERED: levETIRAcetam 1000MG/NACL 100 ML IV ONE (21:02)
[2017-07-28] MEDS ORDERED: levETIRAcetam 500 MG/5 ML VIAL IV ONE (21:05)
--- NOTE | 2017-07-28 21:21 | EDPHY ---
H & P Time Seen by Provider: 07/28/17 20:59 HPI/ROS: HPI Alcohol abuse, alcohol withdrawal, seizure. 31-year-old male by private vehicle. This patient has a long history of alcohol abuse. He also has a history of epilepsy and alcohol withdrawal seizures. He has been seen in our emergency department on day number of occasions for similar complaints. He was apparently at his father's house taking a shower when he had a seizure. He states that he usually drinks 1-2 pt of vodka per day. He reports that he had several shots of vodka this morning and had about 4 shots of vodka about 4-5 hours ago. He takes Keppra for his seizures. He states that he has been compliant with this medication but is unsure he took this today. He tells me he feels shaky. He did not hit his head. He does not have a headache. No loss of sensation or weakness in his extremities. He denies any other complaints. ROS: Constitutional: No fever, no chills. As above. Eyes: No discharge. No changes in vision. ENT: No sore throat. No nasal congestion or rhinorrhea. Respiratory: No cough. No shortness of breath. Cardiac: No chest pain, no palpitations. Gastrointestinal: No abdominal pain, no vomiting, no diarrhea. Genitourinary: No hematuria. No dysuria or increased frequency with urination. Musculoskeletal: No back pain. No neck pain. No myalgias or arthralgias. Skin: No rashes. Neurological: No headache. No focal weakness or altered sensation. Past medical history: Alcoholism with withdrawal seizures, epilepsy, traumatic brain injury, anxiety, neuropathy, chronic pain, polypharmacy overdose in 2014. Social history: Smokes marijuana and cigarettes. Heavy alcohol abuse. The patient lives primarily with his father. 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 Physical Exam: General Appearance: Alert, at this time he appears relaxed. He is not in distress. This patient is responding to questions appropriately and in full sentences. This patient appears well-hydrated and well-nourished. Head: Normocephalic atraumatic. Eyes: Pupils equal and round no pallor or injection. No lid edema, erythema or injection. No photophobia. No nystagmus. No scleral icterus. ENT, Mouth: Mucous membranes are moist. The pharyngeal tissues are unremarkable. No edema or swelling. No asymmetry suggestive of abscess. No erythema or exudates. No tongue lacerations or abrasions. Respiratory: There are no retractions, lungs are clear to auscultation with good air movement bilaterally. Cardiovascular: Regular rate and rhythm. Tachycardia. No murmur appreciated. Gastrointestinal: Abdomen is soft and nontender, no masses, bowel sounds normal. No focal tenderness at McBurney's point. No Durand sign. Neurological: Motor sensory function is grossly intact. Cranial nerves are normal. Gait is normal. Skin: Warm and dry, no rashes. Musculoskeletal: Neck is supple and nontender. Extremities are symmetrical. All joints range without pain or impingement. Psychiatric: No agitation. No depression. Database: EKG: Imaging: Procedures: Emergency department course: IV placed. He was placed on a monitor. He will be given 1 g of IV coat breath because it is unclear if he has been compliant with this medication. He will initially be given 2 mg of IV Ativan. This will be repeated as needed. Will be started on IV normal saline with 1 L to be given over the next hour. 9:45 p.m., 1st 2 mg of IV Ativan given. The patient was also given 20 mg of IV Pepcid and 4 mg of IV Zofran secondary to nausea. 10:05 p.m., patient re-evaluated. He is wide awake. Tachycardia is resolving. monitoring and evaluation advisor shows a heart rate of 110. He is still tremulous. He will be given an additional 2 mg of IV Ativan. He is also concerned about his nutritional status and states that his nutrition has been poor of late. He was given 100 mg of IV thiamine, 1 mg of oral folate and a multivitamin. He is drinking oral fluids at this time. I did discuss discharge to the [facility] with him with a Librium prepack. He states that he does not want to do this because he has an appointment tomorrow with his [facility] sponsor/primary care physician about getting into a detox program through the [facility]. I did discuss sending him home with a take-home pack of Ativan. 10:45 p.m., patient re-evaluated. Resting comfortably at this time. He is feeling much better. He is no longer tremulous. He has had a total of 4 mg of IV Ativan. He feels comfortable going home. His father will come and pick him up. He will be sent home with a take-home pack of Ativan. He is to meet with his [facility] representative tomorrow. Return to emergency department precautions were discussed with him. All of his questions were answered. He was discharged in good condition. Differential Diagnosis: The differential diagnosis on this patient includes but is not limited to alcohol withdrawal, alcohol abuse, alcohol withdrawal seizure, epilepsy with breakthrough seizure. Traumatic brain injury with other significant traumatic injury unlikely. This represents a partial list of diagnoses considered. These considerations are based on history, physical exam, past history, reassessment and diagnostic testing. Smoking Status: Heavy smoker Constitutional: Initial Vital Signs Temperature (C) 37.2 C 07/28/17 20:53 Heart Rate 133 H 07/28/17 20:53 Respiratory Rate 18 07/28/17 20:53 Blood Pressure 149/103 H 07/28/17 20:53 O2 Sat (%) 97 07/28/17 20:53 O2 Delivery Mode Room Air Allergies/Adverse Reactions: bee pollen Allergy (Verified 06/23/17 18:15) Home Medications: Medication Instructions Recorded clonIDINE [Catapres (*)] 0.1 mg PO TID 06/23/17 clonazePAM [klonoPIN (*)] 1 mg PO BID PRN 06/23/17 traZODone [traZODONE 50MG (*)] 100 mg PO HS 06/23/17 Gabapentin 07/28/17 Keppra 07/28/17 Medical Decision Making - Data Points Laboratory Results: Laboratory Results 07/28/17 21:40 07/28/17 21:40 Sodium 142 mEq/L mEq/L (135-145) Potassium 4.5 mEq/L mEq/L (3.5-5.2) Chloride 105 mEq/L mEq/L (97-110) Carbon Dioxide 24 mEq/l mEq/l (22-31) Anion Gap 13 mEq/L mEq/L (8-16) BUN 14 mg/dL mg/dL (7-23) Creatinine 1.0 mg/dL mg/dL (0.7-1.3) Estimated GFR > 60 Glucose 97 mg/dL mg/dL (70-100) Calcium 9.0 mg/dL mg/dL (8.5-10.4) Medications Given: Discontinued Medications Famotidine (Pepcid) 20 mg IVP EDNOW ONE Stop: 07/28/17 21:45 Last Admin: 07/28/17 21:51 Dose: 20 mg Folic Acid (Folic Acid) 1 mg PO EDNOW ONE Stop: 07/28/17 22:01 Last Admin: 07/28/17 22:03 Dose: 1 mg Sodium Chloride (Ns) 1,000 mls @ 0 mls/hr IV ONCE ONE; Wide Open PRN Reason: Protocol Stop: 07/28/17 21:01 Last Admin: 07/28/17 21:34 Dose: 1,000 mls Levetiracetam (Keppra (Premix)) 100 mls @ 400 mls/hr IV EDNOW ONE Stop: 07/28/17 21:16 Last Admin: 07/28/17 21:39 Dose: 100 mls Lorazepam (Ativan Injection) 2 mg IVP EDNOW ONE Stop: 07/28/17 21:01 Last Admin: 07/28/17 21:33 Dose: 2 mg Lorazepam (Ativan Injection) 2 mg IVP EDNOW ONE Stop: 07/28/17 22:01 Last Admin: 07/28/17 22:04 Dose: 2 mg Multivitamins (Tab-A-Amrk) 1 each PO EDNOW ONE Stop: 07/28/17 22:00 Last Admin: 07/28/17 22:03 Dose: 1 each Ondansetron HCl (Zofran) 4 mg IVP EDNOW ONE Stop: 07/28/17 21:45 Last Admin: 07/28/17 21:51 Dose: 4 mg Departure - Departure Disposition: Home, Routine, Self-Care Clinical Impression: Alcohol dependence, Alcohol withdrawal seizure Condition: Good Instructions: Abuse of Alcohol (ED) Additional Instructions: Read and follow provided instructions. Follow-up with your primary care physician or [facility] sponsor tomorrow as discussed for management in a detox program. Ativan 1 mg tablets: You can take 1-2 tablets every 6-8 hours as needed for alcohol withdrawal symptoms. Resume taking your Keppra as prescribed tomorrow morning. Return to the emergency department for worsening symptoms, seizure or other serious concerns. Referrals: NONE *PRIMARY CARE P,. [Primary Care Provider] - As per Instructions
[2017-07-28] MEDS ORDERED: FAMOTIDINE 20 MG/2 ML SDV IVP ONE (21:44)
[2017-07-28] MEDS ORDERED: ONDANSETRON 4 MG/2 ML VIAL IVP ONE (21:44)
[2017-07-28] MEDS ORDERED: FAMOTIDINE 20 MG/2 ML SDV ONE (21:45)
[2017-07-28] MEDS ORDERED: ONDANSETRON 4 MG/2 ML VIAL ONE (21:45)
[2017-07-28] MEDS ORDERED: THIAMINE HCL 100 MG TAB ONE (21:58)
[2017-07-28] MEDS ORDERED: LORAZEPAM 1 MG PREPACK#4 BTL TAKEHOME ONE ×2 (21:59→22:21)
[2017-07-28] MEDS ORDERED: LORazepam 2 MG/ML INJ ONE (21:59)
[2017-07-28] MEDS ORDERED: FOLIC ACID 1 MG TAB ONE (21:59)
[2017-07-28] MEDS ORDERED: FOLIC ACID 1 MG TAB PO ONE (22:00)
[2017-07-28] MEDS ORDERED: MULTIVITAMINS 1 EACH TAB PO ONE (22:00)
[2017-07-28] MEDS ORDERED: THIAMINE HCL 100 MG TAB PO ONE (22:00)
[2017-07-28] MEDS: MULTIVITAMINS 1 EACH TAB PO ONE ×2 (22:02→22:03)
[2017-07-28 22:37] VITALS: BP 132/86; PULSE 112; TEMP 98.1; O2SAT 96
[2017-07-29] MEDS ORDERED: NS IV ONE (22:00)
[2017-07-29] MEDS ORDERED: THIAMINE HCL IV ONE (22:00)
== END 2017-07-28 22:37 | disposition home or self-care (01) ==
LOC: CED 20:48
DX: G40.909 Epilepsy, unspecified, not intractable, without status epilepticus (principal); F10.239 Alcohol dependence with withdrawal, unspecified; E86.9 Volume depletion, unspecified; F17.210 Nicotine dependence, cigarettes, uncomplicated
CPT/HCPCS: 80048-PO; 96365; J1953; J2060; J2405

== ENCOUNTER 2017-07-31 07:32 | Emergency (ER) | payer MEDICAID ==
[2017-07-31 07:44] VITALS: TEMP 97.7
[2017-07-31] MEDS ORDERED: chlordiazePOXIDE 25 MG CAP PO ONE ×2 (07:54→08:43)
[2017-07-31] MEDS ORDERED: ONDANSETRON 4 MG/2 ML VIAL IVP ONE (07:55)
[2017-07-31] MEDS ORDERED: NS 1,000 ML IV ONE (07:55)
[2017-07-31 08:40] VITALS: RESP 18
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
[2017-07-31 09:29] VITALS: BP 142/92; PULSE 92; O2SAT 97
== END 2017-07-31 09:27 | disposition home or self-care (01) ==
LOC: CED 07:32
DX: F10.239 Alcohol dependence with withdrawal, unspecified (principal); F17.200 Nicotine dependence, unspecified, uncomplicated; G40.909 Epilepsy, unspecified, not intractable, without status epilepticus; E86.9 Volume depletion, unspecified
CPT/HCPCS: 80048-PO; 96374; G0480; J2405

== ENCOUNTER 2017-08-14 15:37 | Emergency (ER) | payer MEDICAID ==
[2017-08-14 15:47] VITALS: RESP 18
--- NOTE | 2017-08-14 16:41 | EDPHY ---
H & P Time Seen by Provider: 08/14/17 16:15 HPI/ROS: Chief complaint. Medication refill HPI. 31-year-old male presents emergency department with request for clonazepam refill till Thursday. He takes 1 mg twice daily. His physician is away this week and it will be Thursday before he can see his provider in get a refill. He otherwise has no complaints but concerned about being out of the clonazepam all weekend. ROS Constitutional. no fever/chills, no weakness Eyes. no problems with vision ENT. no sore throat, no nasal drainage Cardiovascular. no chest pain Respiratory. no shortness of breath, no cough Abdominal. no abdominal pain, no nausea/vomiting, no diarrhea . no problems urinating MS. no calf pain/swelling, no neck/back pain, no joint pain Skin. no rash Lymph. no swollen glands Neuro. Anxiety Past Medical/Surgical History: Alcoholism with withdrawal seizure, epilepsy, traumatic brain injury, neuropathy , chronic pain, anxiety Smoking Status: Heavy smoker Constitutional: Initial Vital Signs Temperature (C) 36.4 C 08/14/17 15:40 Heart Rate 128 H 08/14/17 15:40 Respiratory Rate 18 08/14/17 15:40 Blood Pressure 136/102 H 08/14/17 15:40 O2 Sat (%) 95 08/14/17 15:40 O2 Delivery Mode Room Air Allergies/Adverse Reactions: bee pollen Allergy (Verified 08/14/17 15:46) Home Medications: Medication Instructions Recorded clonIDINE [Catapres (*)] 06/23/17 clonazePAM [klonoPIN (*)] 06/23/17 traZODone [traZODONE 50MG (*)] 06/23/17 Gabapentin 07/28/17 Adderall 10 MG (*) 08/14/17 clonazePAM [klonoPIN (*)] 1 mg PO BID #7 tab 08/14/17 Medical Decision Making ED Course/Re-evaluation: I cold the patient's physician Dr. Olga Martin [phone] who is indeed out of town. The clinic was concerned that the patient was trying to get a med refill early. On re-evaluation the patient tells me that he is not taking extra and really this would be the time for his medication refilled his physician is out of town. Differential Diagnosis: Medication refill. We wish to continue patient's benzodiazepines so he does not have seizure withdrawal. Departure - Departure Disposition: Home, Routine, Self-Care Clinical Impression: Medication refill Condition: Good Instructions: Medicine Refill (ED) Additional Instructions: Take clonazepam 1 pill twice daily. Follow up with Dr. Martin on Thursday for refill of clonazepam. Referrals: NONE *PRIMARY CARE P,. [Primary Care Provider] - As per Instructions Prescriptions: clonazePAM [klonoPIN (*)] 1 mg PO BID #7 tab
[2017-08-14 17:01] VITALS: BP 117/96; PULSE 107; TEMP 97.7; O2SAT 94
== END 2017-08-14 17:01 | disposition home or self-care (01) ==
LOC: CED 15:37
DX: Z76.0 Encounter for issue of repeat prescription (principal); F17.200 Nicotine dependence, unspecified, uncomplicated

== ENCOUNTER 2017-08-19 22:52 | Inpatient (IN) | payer MEDICAID ==
[2017-08-19] MEDS ORDERED: ONDANSETRON DISINTEGRATING 4 MG TAB PO ONE (23:24)
[2017-08-19] MEDS ORDERED: chlordiazePOXIDE 25 MG CAP PO ONE (23:25)
--- NOTE | 2017-08-19 23:45 | EDPHY ---
H & P Stated Complaint: alcohol withdrawl Time Seen by Provider: 08/19/17 23:06 HPI/ROS: CHIEF COMPLAINT: Alcohol withdrawal History by patient HISTORY OF PRESENT ILLNESS: 31-year-old man with longstanding history of alcohol abuse and chronic benzodiazepine use who presents to the ED for his 4th visit in 2 weeks complaining of alcohol withdrawal. Patient states his last drink was 6 or 8 hr ago. He thinks he might have had a seizure today because he woke up confused not knowing where he was and his friend the place he was stain said he seemed out of it. Patient states he also has an underlying seizure disorder. Says he has been out of his clonazepam and has not been able to get in to see his primary care physician. He was seen in the ER given a refill of clonazepam 5 days ago. He says he vomited earlier today. He feels mildly nauseous. No tactile or visual hallucinations or confusion but the patient describes feeling pins and needles and feeling anxious REVIEW OF SYSTEMS: As in HPI, and all other systems reviewed and are negative Source: Patient - Personal History Current Tetanus/Diphtheria Vaccine: Unsure Current Tetanus Diphtheria and Acellular Pertussis (TDAP): Unsure Tetanus Vaccine Date: 2012 - Medical/Surgical History Hx Asthma: Yes Hx Chronic Respiratory Disease: No Hx Diabetes: No Hx Cardiac Disease: No Hx Renal Disease: No Hx Cirrhosis: No Hx Alcoholism: Yes Hx HIV/AIDS: No Hx Splenectomy or Spleen Trauma: No Other PMH: epilepsy, TBI, rotator cuff surgery both shoulders, abd surgery, neuropathy, R leg surgery,chronic pain, anxiety, ETOH ABUSE WITH ETOH SEIZURES - Social History Smoking Status: Heavy smoker - Physical Exam Exam: General Appearance: Alert, tremulous. Slightly disheveled. Drinking oral fluids. Head: normocephalic, atraumatic Eyes: Pupils equal and round, reactive to light, no pallor or injection. Mouth: Mucous membranes moist. Positive tongue tremor Respiratory: Normal, effort, lungs are clear to auscultation. No wheezes, rales or rhonchi. Cardiovascular: Regular rate and rhythm. S1, S2, no murmurs, gallops or rubs appreciated Gastrointestinal: Abdomen is soft and nontender, no masses, bowel sounds normal. Back: No CVA tenderness, no bony tenderness Neurological: Awake, alert and oriented x 3, no pronator drift, normal gait, positive tremor, brisk DTRs, no clonus Skin: Warm and dry, no rashes. Musculoskeletal: No deformities or tenderness. Extremities: full range of motion, no edema, DP2+ bilat Psychiatric: Patient has normal affect, there is no agitation. Constitutional: Initial Vital Signs Temperature (C) 36.5 C 08/19/17 23:16 Heart Rate 102 H 08/19/17 23:16 Respiratory Rate 20 08/19/17 23:16 Blood Pressure 129/90 H 08/19/17 23:16 O2 Sat (%) 93 08/19/17 23:16 O2 Delivery Mode Room Air Allergies/Adverse Reactions: bee pollen Allergy (Verified 08/19/17 23:04) Home Medications: Medication Instructions Recorded clonIDINE [Catapres (*)] 06/23/17 clonazePAM [klonoPIN (*)] 06/23/17 traZODone [traZODONE 50MG (*)] 06/23/17 Gabapentin 07/28/17 Adderall 10 MG (*) 08/14/17 clonazePAM [klonoPIN (*)] 1 mg PO BID #7 tab 08/14/17 Medical Decision Making ED Course/Re-evaluation: 31-year-old man with history of alcohol abuse and chronic benzodiazepine dependence presents complaining of alcohol withdrawal and seizures. Here patient is mildly tachycardic and mildly hypertensive with a tremor appears to be in mild alcohol withdrawal. His breathalyzer was 0.03. He was given oral Zofran, oral fluids and oral Librium for his mild withdrawal. Given that this is his 4th visit in 2 weeks I was encouraging the patient to enter detox program. Patient declined going to the [facility]. He states he would like to go to [facility]. Patient has been given walk-in intake for [facility] as well as [facility]. We have also made a referral to case finisher to assist him tomorrow morning and consideration of a care plan given his frequent emergency department use for benzodiazepines. I did review the patient in [facility] any appears to get refills of his clonazepam every 2 weeks from his primary care physician. I am encouraging him to work out a plan with his primary care physician to make sure that he does not he had to come to the emergency department to get these refills early when she is out of town. He states that he has been unable to get in to see her because she was on vacation and he is waiting for an appointment. 12:12 a.m. On re-evaluation after oral Librium the patient remained mildly tachycardic and hypertensive and tremulous. This point the patient was given a L of IV normal saline and IV Ativan for his ongoing alcohol withdrawal. 12:45 a.m.. Patient continues to remain mildly tachycardic and hypertensive after Ativan. He is given a 2nd dose of Ativan. Labs are unremarkable. 1:21 a.m.: On re-evaluation the patient remains persistently tachycardic and in fact his heart rate has gone up into the 120s. He remains persistently hypertensive. His tongue tremor is improved but still present as are his tremors in his hands. He is feeling less anxious and less pins and needles but despite 100 of Librium orally and 4 mg of Ativan IV total of patient is not sleepy or sedated. I suspect that his degree of alcohol withdrawal as more serious than his initial presentation suggested and given his worsening vital signs will go ahead admit him for ongoing medical treatment of his alcohol withdrawal. I discussed the case with Dr. Levine at [facility] who accepts the patient in transfer . - Data Points Laboratory Results: Laboratory Results 08/20/17 00:25 08/20/17 00:25 08/20/17 08/20/17 00:25 00:25 WBC 7.92 10^3/uL 10^3/uL (3.80-9.50) RBC 5.48 10^6/uL 10^6/uL (4.40-6.38) Hgb 17.1 g/dL g/dL (13.7-17.5) Hct 48.1 % % (40.0-51.0) MCV 87.8 fL fL (81.5-99.8) MCH 31.2 pg pg (27.9-34.1) MCHC 35.6 g/dL g/dL (32.4-36.7) RDW 13.2 % % (11.5-15.2) Plt Count 386 10^3/uL 10^3/uL (150-400) MPV 9.8 fL fL (8.7-11.7) Neut % (Auto) 62.7 % % (39.3-74.2) Lymph % (Auto) 24.9 % % (15.0-45.0) [place] % (Auto) 9.1 % % (4.5-13.0) Eos % (Auto) 2.0 % % (0.6-7.6) Baso % (Auto) 1.0 % % (0.3-1.7) Nucleat RBC Rel Count 0.0 % % (0.0-0.2) Absolute Neuts (auto) 4.97 10^3/uL 10^3/uL (1.70-6.50) Absolute Lymphs (auto) 1.97 10^3/uL 10^3/uL (1.00-3.00) Absolute Monos (auto) 0.72 10^3/uL 10^3/uL (0.30-0.80) Absolute Eos (auto) 0.16 10^3/uL 10^3/uL (0.03-0.40) Absolute Basos (auto) 0.08 10^3/uL 10^3/uL (0.02-0.10) Absolute Nucleated RBC 0.00 10^3/uL 10^3/uL (0-0.01) Immature Gran % 0.3 % % (0.0-1.1) Immature Gran # 0.02 10^3/uL 10^3/uL (0.00-0.10) Sodium 140 mEq/L mEq/L (135-145) Potassium 4.5 mEq/L mEq/L (3.5-5.2) Chloride 104 mEq/L mEq/L (97-110) Carbon Dioxide 22 mEq/l mEq/l (22-31) Anion Gap 14 mEq/L mEq/L (8-16) BUN 11 mg/dL mg/dL (7-23) Creatinine 0.9 mg/dL mg/dL (0.7-1.3) Estimated GFR > 60 Glucose 102 mg/dL H mg/dL (70-100) Calcium 9.7 mg/dL mg/dL (8.5-10.4) Total Bilirubin 0.9 mg/dL mg/dL (0.1-1.4) Conjugated Bilirubin 0.3 mg/dL mg/dL (0.0-0.5) Unconjugated Bilirubin 0.6 mg/dL mg/dL (0.0-1.1) AST 33 IU/L IU/L (17-59) ALT 34 IU/L IU/L (21-72) Alkaline Phosphatase 92 IU/L IU/L (38-126) Total Protein 7.4 g/dL g/dL (6.3-8.2) Albumin 4.4 g/dL g/dL (3.5-5.0) Lipase 72 IU/L IU/L (23-300) Medications Given: Discontinued Medications Chlordiazepoxide HCl (Librium) 100 mg PO EDNOW ONE Stop: 08/19/17 23:26 Last Admin: 08/19/17 23:29 Dose: 100 mg Sodium Chloride (Ns) 1,000 mls @ 0 mls/hr IV EDNOW ONE; Wide Open PRN Reason: Protocol Stop: 08/20/17 00:12 Last Admin: 08/20/17 00:29 Dose: 1,000 mls Lorazepam (Ativan Injection) 2 mg IVP EDNOW ONE Stop: 08/20/17 00:13 Last Admin: 08/20/17 00:29 Dose: 2 mg Lorazepam (Ativan Injection) 2 mg IVP EDNOW ONE Stop: 08/20/17 00:53 Last Admin: 08/20/17 00:57 Dose: 2 mg Ondansetron HCl (Zofran Odt) 4 mg PO EDNOW ONE Stop: 08/19/17 23:25 Last Admin: 08/19/17 23:29 Dose: 4 mg Departure - Departure Disposition: [facility] Clinical Impression: Alcohol withdrawal Qualifiers: Complication of substance-induced condition: uncomplicated Qualified Code(s): F10.230 - Alcohol dependence with withdrawal, uncomplicated Condition: Fair Referrals: Patient,NotPresent [Primary Care Provider] - As per Instructions
[2017-08-20] MEDS ORDERED: LORazepam 2 MG/ML INJ ONE (00:07)
[2017-08-20] MEDS ORDERED: NS 1,000 ML IV ONE (00:11)
[2017-08-20] MEDS ORDERED: LORazepam 2 MG/ML INJ IVP ONE ×2 (00:12→00:52)
[2017-08-20 00:37] LABS: PLATELET COUNT 386 10^3/uL (150-400)
[2017-08-20] MEDS ORDERED: ONDANSETRON 4 MG/2 ML VIAL IVP PRN (03:25)
[2017-08-20] MEDS ORDERED: ACETAMINOPHEN 325 MG TAB PO PRN (03:25)
[2017-08-20] MEDS: LORazepam 2 MG/ML INJ IVP PRN ×7 (04:34→20:00)
--- NOTE | 2017-08-20 05:50 | PDGENHP ---
History and Physical - Chief Complaint Withdrawal and possible seizure - History of Present Illness Source-patient is status post total 6 mg Ativan, 100 mg of Librium and is beginning to become somnolent during interview but still able to answer question. EMR was reviewed and case discussed with ED provider. HPI-this is a pleasant 31-year-old gentleman with a history of alcohol dependence and benzodiazepine dependence who presented to [facility] for complaints of confusion and withdrawal. Patient with longstanding history of polysubstance abuse. He reports that his PCP had gone out of town any ran out of his benzodiazepine. He was given a refill 30 tabs however 5 days ago and still ran out. Patient reports that he drinks approximately 1 pt per day with binge drinking in addition at least 3 times weekly. He has multiple visits for withdrawal to ED/[facility] and was recently admitted in June for withdrawals as well. He has a history of withdrawal seizures. Patient reports that he had is diet desirous to go to inpatient rehab but it is found it difficult to find locations that accept his insurance. He did request of the ED provider that he be transferred to [facility] if possible however he had increasing CIWA scores at [facility] and so was transferred for admission and stabilization. Patient reports his last drink was 12 hr ago. Last use of benzos was on Thursday. Patient has strong family history of alcohol and drug dependence. Patient denies any recent illnesses. He is experiencing chills and sweats. He has a chronic cough that is unchanged from baseline and does also use tobacco chronically. History Information - Allergies/Home Medication List Allergies/Adverse Reactions: bee pollen Allergy (Verified 08/19/17 23:04) Home Medications: clonIDINE [Catapres (*)] 06/23/17 [Last Taken 06/23/17 09:00] clonazePAM [klonoPIN (*)] 06/23/17 [Last Taken 06/22/17] traZODone [traZODONE 50MG (*)] 06/23/17 [Last Taken 06/22/17] Gabapentin 07/28/17 [Last Taken Unknown] Adderall 10 MG (*) 08/14/17 [Last Taken Unknown] I have personally reviewed and updated: family history, medical history, social history, surgical history - Past Medical History Additional medical history: Alcoholism with withdraw seizures. Polypharmacy overdose 2014, benzodiazepine dependence. Anxiety Disorder (therapist Vero [place]). Neuropathy. Chronic pain. Frequent presentations for alcohol related injuries. Traumatic brain in - Surgical History Additional surgical history: X lap as a child. Right leg surgery. Rotator cuff repair - Family History Additional family history: No seizure disorder of Suicide attempt. Multiple family members with alcohol and polysubstance abuse disorder. - Social History Smoking Status: Heavy smoker (Half pack per day for many years) Alcohol Use: Heavy (One pt of hard liquor daily with binge drinking at least 3 times weekly in addition to that.) Drug Use: Marijuana (Occasional) Additional social history: Independent in his ADLs comma the patient lives with his father. Cor status full Review of Systems Review of Systems: ROS: 10pt was reviewed & negative except for what was stated in HPI & below Constitutional: Reports: chills, other (Sweats). Denies: fever, recent illness EENMT: Reports: no symptoms Cardiac: Reports: no symptoms, other (Swelling in his hands bilaterally.) Respiratory: Reports: no symptoms Gastrointestinal: Reports: diarrhea, nausea. Denies: vomitting, abdominal pain Genitourinary: Denies: dysuria, hematuria Muscolosketal: Reports: joint pain, muscle pain (Myalgias) Skin: Reports: no symptoms. Denies: rash Neurological: Reports: anxiety, emotional problems, headache, seizure, tremors. Denies: weakness Hematologic/Lymphatic: Reports: no symptoms Physical Exam Physical Exam: Selected Entries 08/19/17 23:16 Blood Pressure Automatic Method Heart Rate 102 H Respiratory 20 Rate O2 Sat (%) 93 Temperature (C) 36.5 C Blood Pressure 129/90 H Mean Arterial 103 H Pressure (MAP) O2 Delivery Room Air Mode Temperature Oral Source Temp Pulse Resp BP Pulse Ox 36.5 C 119 H 18 130/106 H 95 08/20/17 03:00 08/20/17 03:00 08/20/17 03:00 08/20/17 05:00 08/20/17 03:00 Constitutional: no apparent distress, other (Patient is slightly disheveled. He is restless but interactive and cooperative.), No uncomfortable Eyes: PERRL (Pupils slightly dilated but symmetric.), anicteric sclera, EOMI, scleral injection Ears, Nose, Mouth, Throat: no oral mucosal ulcers, dry mucous membranes, other ( No nasal discharge), No poor dentition Cardiovascular: no murmur, rub, or gallop, pulses symmetric bilaterally, tachycardia, edema (Bilateral hand swelling. No lower extremity edema) Peripheral Pulses: 2+: dorsalis-pedis (R), dorsalis-pedis (L) Respiratory: no respiratory distress, no rales or rhonchi, clear to auscultation , No expiratory wheeze Gastrointestinal: normoactive bowel sounds, soft, non-tender abdomen, no palpable masses, No distension Genitourinary: no bladder tenderness, No smith in urethra Skin: warm, normal color, other (Patient appears flushed) Musculoskeletal: full muscle strength, other (Patient moves all extremities. Strength grossly intact upper lower extremities.), No joint tenderness, No generalized weakness Neurologic: AAOx3, CN II-XII Intact, other (Tremor in hands, tongue fasciculations.), No weakness, No facial droop Psychiatric: interacting appropriately, not encephalopathic, thought process linear, anxious, No depressed, No suicidal ideation, No poor insight, No poor judgement, No poor memory Lab Data & Imaging Review 08/20/17 00:25 08/20/17 00:25 WBC 7.92 10^3/uL (3.80-9.50) 08/20/17 00:25 RBC 5.48 10^6/uL (4.40-6.38) 08/20/17 00:25 Hgb 17.1 g/dL (13.7-17.5) 08/20/17 00:25 Hct 48.1 % (40.0-51.0) 08/20/17 00:25 MCV 87.8 fL (81.5-99.8) 08/20/17 00:25 MCH 31.2 pg (27.9-34.1) 08/20/17 00:25 MCHC 35.6 g/dL (32.4-36.7) 08/20/17 00:25 RDW 13.2 % (11.5-15.2) 08/20/17 00:25 Plt Count 386 10^3/uL (150-400) 08/20/17 00:25 MPV 9.8 fL (8.7-11.7) 08/20/17 00:25 Neut % (Auto) 62.7 % (39.3-74.2) 08/20/17 00:25 Lymph % (Auto) 24.9 % (15.0-45.0) 08/20/17 00:25 [place] % (Auto) 9.1 % (4.5-13.0) 08/20/17 00:25 Eos % (Auto) 2.0 % (0.6-7.6) 08/20/17 00:25 Baso % (Auto) 1.0 % (0.3-1.7) 08/20/17 00:25 Nucleat RBC Rel Count 0.0 % (0.0-0.2) 08/20/17 00:25 Absolute Neuts (auto) 4.97 10^3/uL (1.70-6.50) 08/20/17 00:25 Absolute Lymphs (auto) 1.97 10^3/uL (1.00-3.00) 08/20/17 00:25 Absolute Monos (auto) 0.72 10^3/uL (0.30-0.80) 08/20/17 00:25 Absolute Eos (auto) 0.16 10^3/uL (0.03-0.40) 08/20/17 00:25 Absolute Basos (auto) 0.08 10^3/uL (0.02-0.10) 08/20/17 00:25 Absolute Nucleated RBC 0.00 10^3/uL (0-0.01) 08/20/17 00:25 Immature Gran % 0.3 % (0.0-1.1) 08/20/17 00:25 Immature Gran # 0.02 10^3/uL (0.00-0.10) 08/20/17 00:25 Sodium 140 mEq/L (135-145) 08/20/17 00:25 Potassium 4.5 mEq/L (3.5-5.2) 08/20/17 00:25 Chloride 104 mEq/L (97-110) 08/20/17 00:25 Carbon Dioxide 22 mEq/l (22-31) 08/20/17 00:25 Anion Gap 14 mEq/L (8-16) 08/20/17 00:25 BUN 11 mg/dL (7-23) 08/20/17 00:25 Creatinine 0.9 mg/dL (0.7-1.3) 08/20/17 00:25 Estimated GFR > 60 08/20/17 00:25 Glucose 102 mg/dL (70-100) H 08/20/17 00:25 Calcium 9.7 mg/dL (8.5-10.4) 08/20/17 00:25 Total Bilirubin 0.9 mg/dL (0.1-1.4) 08/20/17 00:25 Conjugated Bilirubin 0.3 mg/dL (0.0-0.5) 08/20/17 00:25 Unconjugated Bilirubin 0.6 mg/dL (0.0-1.1) 08/20/17 00:25 AST 33 IU/L (17-59) 08/20/17 00:25 ALT 34 IU/L (21-72) 08/20/17 00:25 Alkaline Phosphatase 92 IU/L (38-126) 08/20/17 00:25 Total Protein 7.4 g/dL (6.3-8.2) 08/20/17 00:25 Albumin 4.4 g/dL (3.5-5.0) 08/20/17 00:25 Lipase 72 IU/L (23-300) 08/20/17 00:25 EKG additional interpertation: Telemetry showing sinus tachycardia in the 110s Assessment & Plan Assessment: 31-year-old gentleman with history of alcohol dependence and benzodiazepine abuse who presented to [facility] with concerns for withdrawal and possible seizure. #Alcohol withdrawal (Acute) - patient placed on CIWA protocol. His score currently is 12. He has received total of 6 mg of Ativan at this point. He is beginning to show signs that he is becoming sedated so fully we will be able to avoid ICU transfer. Patient does however drink 1 pt of vodka or more on a daily basis so may be difficult. Patient is requesting some assistance with placement into an inpatient rehab facility if possible so social Work has been consulted. #benzodiazepine withdrawal - patient has a history of on prescription overuse of benzo. Per report he was prescribed 30 tabs of clonazepam 5 days ago during his last ED visit to cover me until his PCP could return from out of town. Patient reports that he used all of his tabs and has run out 1st last several days already. Given his high risk of medication abuse would not recommend discharge with any prescription benzos. As above case Management consult for assistance with possible placement to inpatient rehab. #Possible withdrawal seizure - no witnessed seizure activity here but patient has been placed on seizure precautions was CIWA protocol. The receiving Ativan as noted above. Will monitor closely. chronic medical issues #Anxiety - patient receiving Ativan per alcohol withdrawal protocol. He remains restless and anxious. #Neuropathy - patient beginning to show signs of somnolence. Will hold his gabapentin at this time. FEN - IV fluids. Encourage oral intake as tolerated but patient with rising CIWA scores so diet order may change shortly to NPO. Electrolytes will be monitored closely and replaced if needed. PPX-SCDs and Lovenox. Cor status-full Disposition-patient will be admitted observation at this time. Will need to see if patient responds to aggressive alcohol withdrawal treatment and reassess his admission status later today as per day team.
[2017-08-20] MEDS: NICOTINE 21 MG/24 HR PATCH TD SCH (07:59)
[2017-08-20] MEDS: FOLIC ACID 1 MG TAB PO SCH (07:59)
[2017-08-20] MEDS: MULTIVITAMINS 1 EACH TAB PO SCH (07:59)
[2017-08-20] MEDS: THIAMINE HCL 100 MG TAB PO SCH (08:00)
[2017-08-20] MEDS ORDERED: PROTOCOL POTASSIUM 1 DOSE MISC PRN (08:29)
[2017-08-20] MEDS ORDERED: PROTOCOL MAGNESIUM 1 DOSE IV PRN (08:29)
[2017-08-20] MEDS ORDERED: chlordiazePOXIDE 25 MG CAP PO SCH (09:00)
[2017-08-20] MEDS ORDERED: FUROSEMIDE 20 MG/2 ML VIAL IVP ONE (10:47)
[2017-08-20] MEDS: chlordiazePOXIDE 25 MG CAP PO SCH ×3 (11:46→20:00)
--- NOTE | 2017-08-20 12:53 | ASMTCAGE ---
CAGE Do you feel you ought to Answers: Yes cut down on your drinking or drug use? Do people annoy you by Answers: Yes criticizing your drinking or drug use? Do you feel guilty about Answers: Yes your drinking or drug use? Additional Comments Sometimes on last question Date Signed: 08/20/2017 12:52 PM Electronically Signed By:AMANUEL Winter
--- NOTE | 2017-08-20 13:00 | ASMTCMCOM ---
CM Note CM Note Notes: Pts case discussed in tx rounds. Pt is a 31 y/o man admitted for alcohol withdrawal. CM met w/ pt to provide support and alcohol resources. SPL has been ordered and awaiting recommendations. CM and pt discussed tools for sobriety. Pt reports that the longest time he has been sober was 8 months. Pt reports that he plans on going to an intensive outpatient program when he discharges from the hospital. CM and pt discussed the lack of residential alcohol programs that is covered by Medicaid. Pt will most likely d/c independent. CM available for changes. Plan: Independent Date Signed: 08/20/2017 01:00 PM Electronically Signed By:AMANUEL Winter
--- NOTE | 2017-08-20 13:20 | HOSPPROG ---
Hospitalist Progress Note Assessment/Plan: #ETOH WD #Benzodiazepine Withdrawal #Nicotine dependance #Polysubstance abuse #Pedal Edema #Neuropathy Plan: increase Librium cont Ativan CIWA Lasix 20mg x 1 cont sz precautions restart Gabapentin cont Nicotine patch Check Mg Dispo: inpatient status for severe ETOH WD Subjective: actively WD. Tremulous. No cp or SOB. no confusion. Objective: Vital Signs Temp Pulse Resp BP Pulse Ox 36.3 C 82 16 119/65 96 08/20/17 11:56 08/20/17 11:56 08/20/17 11:56 08/20/17 11:56 08/20/17 11:56 Laboratory Results 08/20/17 11:31 08/19/17 08/20/17 08/21/17 05:59 05:59 05:59 Intake Total 1600 1900 Balance 1600 1900 - Physical Exam Constitutional: no apparent distress Eyes: PERRL, EOMI Ears, Nose, Mouth, Throat: moist mucous membranes, hearing normal Cardiovascular: tachycardia, edema Respiratory: no respiratory distress Gastrointestinal: normoactive bowel sounds, soft, non-tender abdomen Skin: warm Musculoskeletal: full muscle strength Neurologic: AAOx3 Psychiatric: interacting appropriately, not anxious, not encephalopathic Lymph, Heme, Immunologic: No petechiae ICD10 Worksheet Patient Problems: Problems Problem Status Onset Alcohol withdrawal Acute Abdominal pain Acute Bronchitis Acute Drug overdose Acute Enteritis Acute Medication refill Acute
--- NOTE | 2017-08-20 14:21 | PDMN ---
Medical Necessity Medical necessity: los>2mn for severe ETOH and benzodiazepine withdrawal with tremulousness; requires continued CIWA and sz precautions, w/ Ativan, increased Librium, IV Lasix x1; comorbid anxiety disorder, neuropathy, chronic pain, TBI, hx withdrawal sz's; per order and progress note 08/20/17
[2017-08-20] MEDS: GABAPENTIN 300 MG CAP PO SCH ×2 (16:21→23:05)
[2017-08-20] MEDS ORDERED: MAGNESIUM SULF 1 GM/DEXTROSE 100 ML IV ONE (17:18)
[2017-08-20] MEDS: traZODone 100 MG TAB PO SCH (23:05)
[2017-08-21] MEDS: chlordiazePOXIDE 25 MG CAP PO SCH ×4 (06:26→22:08)
[2017-08-21] MEDS: LORazepam 2 MG/ML INJ IVP PRN ×8 (06:26→22:49)
[2017-08-21 06:57] LABS: PLATELET COUNT 311 10^3/uL (150-400)
[2017-08-21] MEDS: FOLIC ACID 1 MG TAB PO SCH (08:00)
[2017-08-21] MEDS: THIAMINE HCL 100 MG TAB PO SCH (08:00)
[2017-08-21] MEDS: GABAPENTIN 300 MG CAP PO SCH (08:00)
[2017-08-21] MEDS: MULTIVITAMINS 1 EACH TAB PO SCH (08:00)
[2017-08-21] MEDS: NICOTINE 21 MG/24 HR PATCH TD SCH (08:01)
[2017-08-21] MEDS: PREGABALIN 75 MG CAP PO SCH ×2 (11:13→23:51)
--- NOTE | 2017-08-21 13:00 | HOSPPROG ---
Hospitalist Progress Note Assessment/Plan: #ETOH WD #Benzodiazepine Withdrawal, SX'S have become worse. Needing high amounts of Ativan #Nicotine dependance #Polysubstance abuse #Pedal Edema, resolved #Neuropathy, requesting we change from Neurontin to Lyrica Plan: increase Librium to 50mg TID. Given additional 25mg now. cont Ativan CIWA Lasix PRN cont sz precautions start Lyrica cont Nicotine patch Mg at goal Dispo: inpatient status for severe ETOH WD Subjective: still with WD sx's. Requiring large amounts of Benzo's. no seizure activity Objective: Vital Signs Temp Pulse Resp BP Pulse Ox 36.6 C 91 12 162/82 H 95 08/21/17 10:59 08/21/17 10:59 08/21/17 10:59 08/21/17 10:59 08/21/17 10:59 Laboratory Results 08/21/17 06:40 08/21/17 06:40 08/20/17 08/21/17 08/22/17 05:59 05:59 05:59 Intake Total 2550 Balance 2550 - Physical Exam Constitutional: no apparent distress, not in pain Eyes: PERRL, EOMI Ears, Nose, Mouth, Throat: moist mucous membranes, hearing normal Cardiovascular: regular rate and rhythym, No JVD, No edema Respiratory: no respiratory distress, no rales or rhonchi, clear to auscultation Gastrointestinal: normoactive bowel sounds, soft, non-tender abdomen, no palpable masses Skin: warm Musculoskeletal: full muscle strength Neurologic: AAOx3 Psychiatric: interacting appropriately, not encephalopathic, thought process linear, anxious Lymph, Heme, Immunologic: No petechiae ICD10 Worksheet Patient Problems: Problems Problem Status Onset Alcohol withdrawal Acute Abdominal pain Acute Bronchitis Acute Drug overdose Acute Enteritis Acute Medication refill Acute
[2017-08-21] MEDS: HYDROCODONE/APAP 5/325 TAB PO PRN ×3 (17:13→23:50)
[2017-08-21] MEDS: traZODone 100 MG TAB PO SCH (23:51)
[2017-08-22] MEDS: LORazepam 2 MG/ML INJ IVP PRN ×9 (01:09→20:17)
[2017-08-22] MEDS: HYDROCODONE/APAP 5/325 TAB PO PRN ×6 (03:11→20:17)
[2017-08-22] MEDS: chlordiazePOXIDE 25 MG CAP PO SCH ×3 (07:33→22:20)
[2017-08-22] MEDS: MULTIVITAMINS 1 EACH TAB PO SCH (07:34)
[2017-08-22] MEDS: PREGABALIN 75 MG CAP PO SCH ×2 (07:34→22:20)
[2017-08-22] MEDS: FOLIC ACID 1 MG TAB PO SCH (07:34)
[2017-08-22] MEDS: THIAMINE HCL 100 MG TAB PO SCH (07:34)
[2017-08-22] MEDS: NICOTINE 21 MG/24 HR PATCH TD SCH (07:35)
--- NOTE | 2017-08-22 09:21 | HOSPPROG ---
Hospitalist Progress Note Assessment/Plan: 31-year-old alcoholic with a history of chronic benzodiazepine use was admitted after he ran out of his prescription benzos and became more anxious. # alcohol withdrawal: Patient appears fairly stable at this point. His CIWA scores high but I believe a lot of that is due to his anxiety and PTSD at baseline. He is oriented he is minimally tremors but continues to ask for Ativan. * Will start to wean him off the IV Ativan today but continue Librium * I believe his CIWA scores are erroneously high due to his anxiety. # anxiety with chronic benzodiazepine use. I suspect that this is likely the reason why he is here rather than alcohol withdrawal. * Continue Librium * Wean off Ativan over the next day or to # neuropathy: Patient previously on gabapentin without improvement, switched over to Lyrica will continue at the time of discharge # pedal edema on admission, resolved # polysubstance abuse # tobacco use on nicotine patch Subjective: Patient new to me and chart reviewed. He does state he is worse than yesterday however on exam he shows minimal symptoms of any withdrawal whatsoever even though he is asking for more Ativan. He is alert and oriented his gait is stable per nursing report. He has no or tremor noted. Objective: Vital Signs Temp Pulse Resp BP Pulse Ox 36.5 C 100 20 140/88 H 95 08/22/17 07:09 08/22/17 07:09 08/22/17 07:09 08/22/17 07:09 08/22/17 07:09 Laboratory Results 08/21/17 06:40 08/22/17 03:06 08/21/17 08/22/17 08/23/17 05:59 05:59 05:59 Intake Total 2550 1050 Balance 2550 1050 - Physical Exam Constitutional: no apparent distress, appears nourished, not in pain Eyes: PERRL, EOMI Ears, Nose, Mouth, Throat: moist mucous membranes Cardiovascular: regular rate and rhythym Respiratory: no respiratory distress, clear to auscultation Gastrointestinal: normoactive bowel sounds, soft, non-tender abdomen Genitourinary: no bladder fullness Skin: warm, normal color Neurologic: AAOx3, other (No tremor) Psychiatric: interacting appropriately, not encephalopathic ICD10 Worksheet Patient Problems: Problems Problem Status Onset Drug overdose Acute Medication refill Acute Bronchitis Acute Abdominal pain Acute Enteritis Acute Alcohol withdrawal Acute
[2017-08-22] MEDS ORDERED: MAGNESIUM HYDROXIDE 30 ML UDCUP PO PRN (13:21)
[2017-08-22] MEDS ORDERED: LACTULOSE 20 GM/30 ML UDCUP PO PRN (13:21)
[2017-08-22] MEDS ORDERED: BISACODYL 10 MG SUPP PR PRN (13:21)
[2017-08-22] MEDS ORDERED: POLYETHYLENE GLYCOL 3350 17 GM PKT PO PRN (13:21)
[2017-08-22] MEDS: SENNOSIDES/DOCUSATE SODIUM TAB PO SCH (20:17)
[2017-08-22] MEDS: traZODone 100 MG TAB PO SCH (22:20)
[2017-08-23] MEDS ORDERED: chlordiazePOXIDE 25 MG CAP PO SCH
[2017-08-23] MEDS: LORazepam 2 MG/ML INJ IVP PRN ×3 (01:42→08:12)
[2017-08-23] MEDS ORDERED: THIAMINE HCL 100 MG TAB PO SCH (03:27)
[2017-08-23 08:09] VITALS: BP 123/77
[2017-08-23] MEDS: HYDROCODONE/APAP 5/325 TAB PO PRN (08:11)
[2017-08-23] MEDS: SENNOSIDES/DOCUSATE SODIUM TAB PO SCH (09:06)
[2017-08-23] MEDS: PREGABALIN 75 MG CAP PO SCH (09:06)
[2017-08-23] MEDS: NICOTINE 21 MG/24 HR PATCH TD SCH (09:06)
[2017-08-23] MEDS: chlordiazePOXIDE 25 MG CAP PO SCH (09:07)
[2017-08-23] MEDS: MULTIVITAMINS 1 EACH TAB PO SCH (09:07)
[2017-08-23] MEDS: THIAMINE HCL 100 MG TAB PO SCH (09:07)
[2017-08-23] MEDS: FOLIC ACID 1 MG TAB PO SCH (09:07)
--- NOTE | 2017-08-23 09:54 | GDS ---
[f rep st] DISCHARGE SUMMARY DISCHARGE DIAGNOSES: 1. Alcohol and benzodiazepine withdrawal. 2. Significant anxiety disorder and posttraumatic stress disorder. 3. Neuropathy. 4. History of polysubstance abuse. 5. Tobacco abuse. HOSPITAL COURSE: The patient is a 31-year-old who was admitted with increasing anxiety and a call ou t for help due to withdrawal from alcohol and benzodiazepine. He is followed at the [facility] and has extreme anxiety and PTSD for which he has been on chronic benzos. [facility] and placed on the CIWA protocol and did relatively well. [facility] taper off Librium. I think this is appropriate. I had a long discussion with jaime vaca. He is not depressed or anxious at this time. He is not suicidal and will take the medications ap propriately. He also has followup scheduled at the [facility] in 29 days, he was not able to get in sooner than that. The patient is much more appropriate today. He denies any history of IV dr ug use in the past. CONDITION ON DISCHARGE: Good. PHYSICAL EXAMINATION: VITAL SIGNS: Stable. He is mildly tachycardic with a heart rate between 104 and 106, blood pressure 123/77. He is 92% on room air. GENERAL: He is alert and oriented. He is a ppropriate. He is not anxious. HEART: Regular. LUNGS: Clear. DISCHARGE MEDICATIONS: Please see discharge medication form. FOLLOWUP: He has a followup scheduled at the [facility]. We did change his medications from gabapentin to Lyrica and I gave him a prescription for this. I al so gave him 12 tablets of Librium to take for a quick taper over 6 days. Total time spent with patient on day of discharge and coordination of care is 35 minutes. /[id number]/MODL
--- NOTE | 2017-08-23 17:27 | ASDISCHSUM ---
Discharge Information Plan Status:Home with No Needs Medically Cleared to Leave:08/23/2017 Discharge Date:08/23/2017 01:10 PM CM D/C Disposition: ADT D/C Disposition:Home, Routine, Self-Care Projected Discharge Date:08/23/2017 01:00 PM Transportation at D/C: Discharge Delay Reason: Follow-Up Date:08/23/2017 01:00 PM Discharge Slot:2 - 12:01 pm - 18:00 pm Final Diagnosis:alcohol withrdrawl Placement Information Patient Contact Information Contact Name:LUCIAN Relationship:Father Address:[address] City:[place] Alternate Phone: State/Zip Code:[place] [address] Email: Financial Information Financial Class:Medicaid Primary Plan Desc:[facility] Primary Plan Number:[id number] Secondary Plan Desc: Secondary Plan Number: Assessment Information CAGE Questionnaire CAGE Do you feel you ought to Answers: Yes cut down on your drinking or drug use? Do people annoy you by Answers: Yes criticizing your drinking or drug use? Do you feel guilty about Answers: Yes your drinking or drug use? Additional Comments Sometimes on last question Date Signed: 08/20/2017 12:52 PM Electronically Signed By:AMANUEL Winter [facility] CM Progress Note CM Note CM Note Notes: Pts case discussed in tx rounds. Pt is a 31 y/o man admitted for alcohol withdrawal. CM met w/ pt to provide support and alcohol resources. SPL has been ordered and awaiting recommendations. CM and pt discussed tools for sobriety. Pt reports that the longest time he has been sober was 8 months. Pt reports that he plans on going to an intensive outpatient program when he discharges from the hospital. CM and pt discussed the lack of residential alcohol programs that is covered by Medicaid. Pt will most likely d/c independent. CM available for changes. Plan: Independent Date Signed: 08/20/2017 01:00 PM Electronically Signed By:AMANUEL Winter LACE LACE Acuity / Level of Answers: Yes Care: Did the patient have an inpatient admission? Comorbidities - select Answers: Other Notes: TBI, neuropathy, chroni c all that apply pain, hx of rotator cuf f repair # of Emergency department Answers: 5-8 visits in the last 6 months Social determinants Answers: History of substance abuse (ETOH, street drugs, prescription drugs, etc.) Mental health diagnosis (anxiety, depression, pers onality disorders, etc.) Lack of community resources and/or lack of social support (no pcp, lives alone, transportation, leeann d) Score: 18 Date Signed: 08/23/2017 12:56 PM Electronically Signed By:Krysten Alegria Case Management Discharge Plan Note Case Management Discharge Discharge Order Complete? Answers: Yes Patient to Obtain Answers: via MAP Medications Transportation Arranged Answers: Other Notes: [facility] will Pick (Date 08/23/2017 01:30 PM & Time) Discharge Comments Notes: CM met with patient prior to discharge. 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 MD requested MAP for medications for discharge to complete todays' dosing, patient stated he discussed this with the MD. CM inquired with member about possibility of picking up medications today in the chance we were not able to get the medications for him to leave with, he stated it would be difficult for him as he does not have an identified pharmacy to access today, he will be staying with his father and does not know how to access a pharmacy in this location, and mentioned not having current access to his state ID. CM called Pharm, spoke with Ki, medications dispensed (.47 for 4 tablets). Medications received by floor RN and given to patient. Patient to follow up as directed. D/C plan: CM to discharge this PM with [employer] [facility]. 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 Confirmation # [id number].
== END 2017-08-23 13:10 | disposition home or self-care (01) | DRG 775 ==
LOC: CED 22:52 → CEDHOLD 08-20 01:27 → F2W 08-20 02:52 → OBSVTOIN 08-20 13:21 → F3N 08-22 15:46
PROVIDERS: ADMIT Family Medicine; ATTEND Internal Medicine
PROC: HZ2ZZZZ Detoxification Services for Substance Abuse Treatment (ICD-10-PCS; principal; 2017-08-20)
DX: F10.230 Alcohol dependence with withdrawal, uncomplicated (principal); F13.230 Sedative, hypnotic or anxiolytic dependence with withdrawal, uncomplicated; F41.9 Anxiety disorder, unspecified; F43.12 Post-traumatic stress disorder, chronic; G62.9 Polyneuropathy, unspecified; F17.210 Nicotine dependence, cigarettes, uncomplicated
CPT/HCPCS: 80048-PO; 80076-PO; 80307; 83690-PO; 85025-PO; 96374; G0480; J1940; J2060; J3475

== ENCOUNTER 2017-08-26 20:52 | Emergency (ER) | payer MEDICAID ==
[2017-08-26] MEDS ORDERED: LORazepam 2 MG/ML INJ IVP ONE (21:35)
[2017-08-26] MEDS ORDERED: chlordiazePOXIDE 25 MG CAP PO ONE (21:35)
[2017-08-26] MEDS ORDERED: NS 1,000 ML IV ONE ×2 (21:36)
--- NOTE | 2017-08-26 21:40 | EDPHY ---
H & P Time Seen by Provider: 08/26/17 21:27 HPI/ROS: CHIEF COMPLAINT: "Alcohol withdrawal" HISTORY OF PRESENT ILLNESS: The patient is a 31-year-old male who has a history of alcohol abuse and alcohol withdrawal the presents to the emergency department stating he is"in alcohol withdrawal."Patient was admitted to the hospital on 08/20/2017 and discharged on 08/23/2017 with alcohol and benzodiazepine withdrawal. Patient states that he started drinking alcohol yesterday. He drinks more than 2 pt. His last drink was 9 hr ago. He now feels palpitation as though his heart is moving fast. He states this is typical of his withdrawal. REVIEW OF SYSTEMS: My complete review of systems is negative except as mentioned in the HPI. Past Medical/Surgical History: Includes alcohol abuse, alcohol withdrawal, benzodiazepine withdrawal, anxiety, neuropathy, closed-head injury, PTSD Surgical history: Includes abdominal surgery from traumatic injury Smoking Status: Heavy smoker Physical Exam: 36.9, 131/98, 121, 18, 97% GENERAL: No acute distress, alert. HEENT: Eyes normal to inspection, normal pharynx, no signs of dehydration. NECK: No thyromegaly, no lymphadenopathy, supple. RESPIRATORY: Clear to auscultation bilaterally, no rales, rhonchi or wheezing. CVS: Tachycardia with regular rhythm, no rubs, murmurs, or gallops. ABDOMEN: Soft, nontender, nondistended, no organomegaly. BACK: Normal to inspection, no CVA tenderness. SKIN: Normal color, no rash, warm, dry. No pallor. EXTREMITIES: No pedal edema, no calf tenderness, no Homans sign or cords, no joint swelling. NEURO/PSYCH: Alert and oriented x3, normal mood and affect, normal motor sensory exam. Constitutional: Initial Vital Signs Temperature (C) 36.9 C 08/26/17 20:59 Heart Rate 121 H 08/26/17 20:59 Respiratory Rate 18 08/26/17 20:59 Blood Pressure 131/98 H 08/26/17 20:59 O2 Sat (%) 97 08/26/17 20:59 O2 Delivery Mode Room Air Allergies/Adverse Reactions: bee pollen Allergy (Verified 08/19/17 23:04) Home Medications: Medication Instructions Recorded Cyclobenzaprine [Flexeril 10 MG 10 mg PO BID PRN 08/20/17 (*)] traZODone [traZODONE 100MG (*)] 100 mg PO HS 08/20/17 Multivitamins [Multivitamin (*)] 1 each PO DAILY tab 08/23/17 Pregabalin [Lyrica 150mg (*)] 150 mg PO BID #60 cap 08/23/17 chlordiazePOXIDE [Librium 25 mg 25 mg PO TID #12 cap 08/23/17 (*)] chlordiazePOXIDE [Librium 25 mg 50 mg PO TID #4 cap 08/23/17 (*)] Medical Decision Making ED Course/Re-evaluation: In the emergency department I discussed possible etiologies with the patient. I answered all his questions. IV was placed. Patient given 1 L of normal saline. Patient was given Librium 25 mg orally and Ativan 1 mg IV. Patient given 2 L of normal saline. Patient's heart rate improved. [facility] This will be arranged for alcohol detox. Patient was given warnings prior to leaving. He will return with worsening symptoms. Differential Diagnosis: My differential includes but is not limited to alcohol abuse, alcohol withdrawal , polysubstance abuse, dehydration, electrolyte abnormality, sugar abnormality - Data Points Medications Given: Discontinued Medications Chlordiazepoxide HCl (Librium) 25 mg PO EDNOW ONE Stop: 08/26/17 21:36 Last Admin: 08/26/17 21:52 Dose: 25 mg Sodium Chloride (Ns) 1,000 mls @ 0 mls/hr IV ONCE ONE PRN Reason: Wide Open Stop: 08/26/17 21:37 Last Admin: 08/26/17 21:52 Dose: 1,000 mls Sodium Chloride (Ns) 1,000 mls @ 0 mls/hr IV ONCE ONE PRN Reason: Wide Open Stop: 08/26/17 21:37 Last Admin: 08/26/17 21:53 Dose: 1,000 mls Lorazepam (Ativan Injection) 1 mg IVP EDNOW ONE Stop: 08/26/17 21:36 Last Admin: 08/26/17 21:52 Dose: 1 mg Ondansetron HCl (Zofran) 4 mg IVP EDNOW ONE Stop: 08/26/17 22:05 Last Admin: 08/26/17 22:06 Dose: 4 mg Departure - Departure Disposition: Home, Routine, Self-Care Clinical Impression: Alcohol withdrawal Qualifiers: Complication of substance-induced condition: uncomplicated Qualified Code(s): F10.230 - Alcohol dependence with withdrawal, uncomplicated Condition: Good Instructions: Alcohol Withdrawal (ED) Additional Instructions: Slowly decrease your alcohol intake. [facility]. Referrals: PAOLA COFFEY [Other] - 5-7 days, call for appt.
[2017-08-26] MEDS ORDERED: ONDANSETRON 4 MG/2 ML VIAL IVP ONE (22:04)
[2017-08-26] MEDS ORDERED: ONDANSETRON 4 MG/2 ML VIAL ONE (22:04)
[2017-08-26 23:36] VITALS: BP 138/74
== END 2017-08-26 23:35 | disposition home or self-care (01) ==
DX: F10.230 Alcohol dependence with withdrawal, uncomplicated (principal); F17.200 Nicotine dependence, unspecified, uncomplicated
CPT/HCPCS: 96374; J2060; J2405

== ENCOUNTER 2017-11-19 04:46 | Emergency (ER) | payer MEDICAID ==
[2017-11-19] MEDS ORDERED: PHENobarbital NA 130 MG/ML VIAL IVP ONE (04:58)
[2017-11-19] MEDS ORDERED: LORazepam 2 MG/ML INJ IVP ONE ×3 (04:58→05:46)
[2017-11-19] MEDS ORDERED: NS 1,000 ML IV ONE ×2 (04:58→04:59)
--- NOTE | 2017-11-19 05:02 | EDPHY ---
H & P Stated Complaint: SZ Source: Patient, EMS - Personal History Current Tetanus/Diphtheria Vaccine: Yes Current Tetanus Diphtheria and Acellular Pertussis (TDAP): Yes Tetanus Vaccine Date: 2012 - Medical/Surgical History Hx Asthma: Yes Hx Chronic Respiratory Disease: No Hx Diabetes: No Hx Cardiac Disease: No Hx Renal Disease: No Hx Cirrhosis: No Hx Alcoholism: Yes Hx HIV/AIDS: No Hx Splenectomy or Spleen Trauma: No Other PMH: epilepsy, TBI, rotator cuff surgery both shoulders, abd surgery, neuropathy, R leg surgery,chronic pain, anxiety, ETOH ABUSE WITH ETOH SEIZURES - Social History Smoking Status: Heavy smoker Time Seen by Provider: 11/19/17 04:58 HPI/ROS: HPI The patient presents with seizure, witnessed at the [facility], just prior to arrival. This was a tonic clonic event lasting for several minutes. The patient is brought in by ambulance. He had been at the [facility] for about 2-3 hours for alcohol withdrawal before this seizure occurred, previously in the day he was at [facility]. He says over the last 1 day he has cut down on his alcohol use, drinking 1 pt and 1 can of beer. Usually he drinks 2 pt of hard alcohol a day. He has a prior history of alcohol withdrawal seizures he has been seen here many times for alcohol withdrawal.. REVIEW OF SYSTEMS Constitutional: No fever, no chills. Eyes: No discharge. ENT: No sore throat. Cardiovascular: No chest pain, no palpitations. Respiratory: No cough, no shortness of breath. Gastrointestinal: No abdominal pain, no vomiting. Genitourinary: No hematuria. Musculoskeletal: No back pain. Skin: No rashes. Neurological: No headache. PMHx: Alcohol withdrawal, alcohol withdrawal seizures, history of chronic pain Soc Hx: Longstanding alcohol abuse PHYSICAL General Appearance: Alert, anxious appearing Eyes: Pupils equal and round no pallor or injection ENT, Mouth: Mucous membranes dry Respiratory: There are no retractions, lungs are clear to auscultation Cardiovascular: Regular rate and rhythm Gastrointestinal: Abdomen is soft and non-tender, no masses, bowel sounds normal Neurological: A&O, moves all extremities, tremulous Skin: Warm and dry, no rashes Musculoskeletal: Neck is supple non tender Extremities: symmetrical, full range of motion Psychiatric: Patient is oriented X 3, there is no agitation (Riguzzi,Mary Ellen) Constitutional: Initial Vital Signs Temperature (C) 36.7 C 11/19/17 04:50 Heart Rate 101 H 11/19/17 04:50 Respiratory Rate 18 11/19/17 04:50 Blood Pressure 138/107 H 11/19/17 04:50 O2 Sat (%) 94 11/19/17 04:50 O2 Delivery Mode Nasal Cannula O2 (L/minute) 2 Allergies/Adverse Reactions: bee pollen Allergy (Verified 11/19/17 04:57) Home Medications: Medication Instructions Recorded Multivitamins [Multivitamin (*)] 1 each PO DAILY tab 08/23/17 Pregabalin [Lyrica 150mg (*)] 150 mg PO BID #60 cap 08/23/17 Clonidine 11/19/17 Tagamet Hb 11/19/17 Medical Decision Making Differential Diagnosis: 31-year-old man with history of alcohol withdrawal including seizures presents brought in by ambulance from the [facility] for seizure which occurred in the setting of decreased alcohol use. He is now currently slightly tachycardic and tremulous. Plan for treatment with Ativan and phenobarbital as well as IV fluids. I will monitor him here closely. Differential diagnosis includes alcohol withdrawal seizure, epilepsy, electrolyte disturbance. In the emergency department, patient was given IV fluids, Librium and Ativan IV. At 7:00 a.m. There was a change of shift. The patient is going to receive an additional dose of Ativan and he continues to have symptoms of withdrawal, he should be admitted to the hospital. (Mary Ellen Posada) Other Provider: Patient signed out to me at 0700, pending re-eval after ativan. On re-eval at 0850, patient sleeping but easily arousable, no longer tachycardic nor tremulous , normal mental status. Patient has apparently asked the nurse numerous times if he can be admitted, which raises my concern for possible desire for secondary gain. At this time, I think the patient is safe for transport to the [facility]. (Christopher Quinonez) - Data Points Laboratory Results: Laboratory Results 11/19/17 05:10 11/19/17 05:10 11/19/17 11/19/17 05:10 05:10 WBC 8.58 10^3/uL 10^3/uL (3.80-9.50) RBC 4.95 10^6/uL 10^6/uL (4.40-6.38) Hgb 15.5 g/dL g/dL (13.7-17.5) Hct 44.1 % % (40.0-51.0) MCV 89.1 fL fL (81.5-99.8) MCH 31.3 pg pg (27.9-34.1) MCHC 35.1 g/dL g/dL (32.4-36.7) RDW 13.4 % % (11.5-15.2) Plt Count 321 10^3/uL 10^3/uL (150-400) MPV 10.7 fL fL (8.7-11.7) Neut % (Auto) 54.4 % % (39.3-74.2) Lymph % (Auto) 33.4 % % (15.0-45.0) [place] % (Auto) 8.4 % % (4.5-13.0) Eos % (Auto) 2.7 % % (0.6-7.6) Baso % (Auto) 0.9 % % (0.3-1.7) Nucleat RBC Rel Count 0.0 % % (0.0-0.2) Absolute Neuts (auto) 4.66 10^3/uL 10^3/uL (1.70-6.50) Absolute Lymphs (auto) 2.87 10^3/uL 10^3/uL (1.00-3.00) Absolute Monos (auto) 0.72 10^3/uL 10^3/uL (0.30-0.80) Absolute Eos (auto) 0.23 10^3/uL 10^3/uL (0.03-0.40) Absolute Basos (auto) 0.08 10^3/uL 10^3/uL (0.02-0.10) Absolute Nucleated RBC 0.00 10^3/uL 10^3/uL (0-0.01) Immature Gran % 0.2 % % (0.0-1.1) Immature Gran # 0.02 10^3/uL 10^3/uL (0.00-0.10) Sodium 146 mEq/L H mEq/L (135-145) Potassium 4.0 mEq/L mEq/L (3.3-5.0) Chloride 108 mEq/L mEq/L (97-110) Carbon Dioxide 24 mEq/l mEq/l (22-31) Anion Gap 14 mEq/L mEq/L (8-16) BUN 13 mg/dL mg/dL (7-23) Creatinine 0.8 mg/dL mg/dL (0.7-1.3) Estimated GFR > 60 Glucose 89 mg/dL mg/dL (70-100) Calcium 8.3 mg/dL L mg/dL (8.5-10.4) Medications Given: Lorazepam (Ativan Injection) 0 mg IVP Q1H PRN; Protocol PRN Reason: Alcohol Withdrawal w/IV access Stop: 11/19/17 19:41 Last Admin: 11/19/17 07:50 Dose: 2 mg Discontinued Medications Chlordiazepoxide HCl (Librium) 50 mg PO EDNOW ONE Stop: 11/19/17 06:39 Last Admin: 11/19/17 06:42 Dose: 50 mg Sodium Chloride (Ns) 1,000 mls @ 0 mls/hr IV ONCE ONE PRN Reason: Wide Open Stop: 11/19/17 05:00 Last Admin: 11/19/17 05:13 Dose: 1,000 mls Sodium Chloride (Ns) 1,000 mls @ 0 mls/hr IV EDNOW ONE; Wide Open PRN Reason: Protocol Stop: 11/19/17 04:59 Last Admin: 11/19/17 06:43 Dose: 1,000 mls Lorazepam (Ativan Injection) 1 mg IVP EDNOW ONE Stop: 11/19/17 04:59 Last Admin: 11/19/17 05:12 Dose: 1 mg Lorazepam (Ativan Injection) 1 mg IVP EDNOW ONE Stop: 11/19/17 05:47 Last Admin: 11/19/17 05:56 Dose: 1 mg Lorazepam (Ativan Injection) 1 mg IVP EDNOW ONE Stop: 11/19/17 04:59 Last Admin: 11/19/17 06:40 Dose: Not Given Phenobarbital Sodium (Phenobarbital) 130 mg IVP ONCE ONE Stop: 11/19/17 04:59 Last Admin: 11/19/17 06:40 Dose: Not Given Departure - Departure Disposition: Home, Routine, Self-Care Clinical Impression: Alcohol withdrawal Condition: Good Instructions: Alcohol Withdrawal (ED) Referrals: Patient,NotPresent [Unknown] - As per Instructions
--- NOTE | 2017-11-19 05:25 | CPEKG ---
Heart Rate: 102 RR Interval: 588 P-R Interval: 144 QRSD Interval: 80 QT Interval: 328 QTC Interval: 428 P [place]: 56 QRS [place]: 79 T Wave [place]: 36 EKG Severity - OTHERWISE NORMAL ECG - EKG Impression: SINUS TACHYCARDIA Electronically Signed By: Mar yEllen Posada 19-Nov-2017 07:44:55
[2017-11-19] MEDS ORDERED: LORazepam 2 MG/ML INJ ONE (05:46)
[2017-11-19 05:59] LABS: PLATELET COUNT 321 10^3/uL (150-400)
[2017-11-19] MEDS ORDERED: chlordiazePOXIDE 25 MG CAP PO ONE ×2 (06:38→10:55)
[2017-11-19] MEDS ORDERED: LORazepam 1 MG TAB PO PRN (07:41)
[2017-11-19] MEDS: LORazepam 2 MG/ML INJ IVP PRN ×2 (07:50→09:43)
[2017-11-19] MEDS ORDERED: chlordiazePOXIDE 25 MG CAP ONE (10:54)
[2017-11-19 11:00] VITALS: BP 124/85
== END 2017-11-19 11:00 | disposition home or self-care (01) ==
LOC: EDUNIT#
DX: F10.239 Alcohol dependence with withdrawal, unspecified (principal); E86.9 Volume depletion, unspecified; J45.909 Unspecified asthma, uncomplicated; F17.200 Nicotine dependence, unspecified, uncomplicated
CPT/HCPCS: 80053-PO; 83605-PO; 84484-PO; 96374; G0480; J2060; J2560

== ENCOUNTER 2017-11-19 18:41 | Emergency (ER) | payer MEDICAID ==
[2017-11-19] MEDS ORDERED: LORazepam 2 MG/ML INJ ONE ×2 (18:50→21:50)
--- NOTE | 2017-11-19 18:50 | CPEKG ---
Heart Rate: 123 RR Interval: 488 QRSD Interval: 106 QT Interval: 304 QTC Interval: 435 QRS [place]: 45 T Wave [place]: 35 EKG Severity - ABNORMAL ECG - EKG Impression: SINUS TACHYCARDIA Electronically Signed By: Rojelio Gutierrez 26-Nov-2017 16:44:03
[2017-11-19] MEDS ORDERED: NS 1,000 ML IV ONE (18:52)
[2017-11-19] MEDS ORDERED: LORazepam 2 MG/ML INJ IVP ONE ×5 (18:52→21:43)
[2017-11-19] MEDS ORDERED: PHENobarbital NA 130 MG/ML VIAL IVP ONE (19:48)
[2017-11-19] MEDS ORDERED: FAMOTIDINE 20 MG/2 ML SDV IVP ONE (19:48)
[2017-11-19] MEDS ORDERED: chlordiazePOXIDE 25 MG CAP PO ONE (19:49)
[2017-11-19 20:19] LABS: INR 0.99 (0.83-1.16); PROTIME(PATIENT) 13.3 SEC (12.0-15.0)
--- NOTE | 2017-11-19 21:33 | EDPHY ---
H & P Stated Complaint: PT with ETOH withdrawl,eval [facility],seizure last noc Time Seen by Provider: 11/19/17 18:47 HPI/ROS: 31 yo M presents c/o alcohol withdrawal. He was at [facility] ED this AM and given , ativan, phenobarb, librium and discharged. He returns tonight with tremor, sweats, chest and abdominal cramping. His alcohol is less than 10. He states he really wants to stop drinking. Review of systems As per HPI General no fever no chills no weakness, pos fatigue HEENT no eye pain no eye discharge. No eye redness, no sore throat Respiratory no cough, no shortness of breath Cardiac positive chest pain, no peripheral edema GI positive abdominal pain, no diarrhea, no constipation, no nausea, no vomiting no flank pain, no hematuria, no dysuria Musculoskeletal no myalgias, no joint pain Heme no easy bruising, no easy bleeding Endo no polyuria, no polydipsia Skin no rashes, no pruritus Neuro no syncope, no dizziness, no headaches positive hx of alcohol abuse, not currently suicidal or homicidal Source: Patient Exam Limitations: Clinical condition - Personal History Current Tetanus Diphtheria and Acellular Pertussis (TDAP): Yes Tetanus Vaccine Date: 2012 - Medical/Surgical History Hx Asthma: Yes Hx Chronic Respiratory Disease: No Hx Diabetes: No Hx Cardiac Disease: No Hx Renal Disease: No Hx Cirrhosis: No Hx Alcoholism: Yes Hx HIV/AIDS: No Hx Splenectomy or Spleen Trauma: No Other PMH: epilepsy, TBI, rotator cuff surgery both shoulders, abd surgery, neuropathy, R leg surgery,chronic pain, anxiety, ETOH ABUSE WITH ETOH SEIZURES - Family History Significant Family History: No pertinent family hx - Social History Smoking Status: Heavy smoker Alcohol Use: Heavy - Physical Exam Exam: 31 yo M alert, tremulous tachycardic, diaphoretic and hypertensive at,nc, face flushed eomi anicteric neck no jvd lungs cta bilat heart rapid rr 124 abd nabs soft mild epigastric tenderness no guarding or rebound, no pulsatile mass ext no cce skin no evidence trauma neuro no focal deficit, generalized tremulousness no flap Constitutional: Initial Vital Signs Temperature (C) 36.7 C 11/19/17 18:41 Heart Rate 105 H 11/19/17 18:41 Respiratory Rate 18 11/19/17 18:41 Blood Pressure 152/87 H 11/19/17 18:41 O2 Sat (%) 95 11/19/17 18:41 O2 Delivery Mode Room Air Allergies/Adverse Reactions: bee pollen Allergy (Verified 11/19/17 18:46) Home Medications: Medication Instructions Recorded Multivitamins [Multivitamin (*)] 1 each PO DAILY tab 08/23/17 Pregabalin [Lyrica 150mg (*)] 150 mg PO BID #60 cap 08/23/17 Clonidine 11/19/17 Tagamet Hb 11/19/17 Medical Decision Making ED Course/Re-evaluation: pt seenand evaluated for alcohol withdrawal. IV started in left EJ. Labs alcohol <10 lactate nml cmp wnl except K 3.2 cbc wnl Pt given normal saline 1 liter Famotidine 20 mg ivp Lorazepam IVP, given a total of 6 mg at time of transfer Librium 50 mg po Imp Acute Alcohol withdrawal with hx of alcohol withdrawal seizures Plan admit no ICU beds available at [facility] or [facility] pt with elevated CIWA >30 - Data Points Laboratory Results: 11/19/17 11/19/17 11/19/17 19:18 19:17 19:16 PT INR APTT POC Sodium 140 mEq/L mEq/L (135-145) POC Potassium 3.2 mEq/L L mEq/L (3.3-5.0) POC Chloride 104.0 mEq/L mEq/L (97-110) POC Total CO2 21 mEq/L L mEq/L (22-31) POC BUN 7 mg/dL mg/dL (7-23) POC Creatinine 0.8 mg/dL mg/dL (0.7-1.3) POC Glucose 90 mg/dL mg/dL (70-100) POC Lactic Acid Raimundo 0.9 mmol/L mmol/L (0.7-2.1) POC Calcium 8.7 mg/dL mg/dL (8.5-10.4) Magnesium POC Total Bilirubin 0.8 mg/dL mg/dL (0.1-1.4) POC AST 50 IU/L IU/L (17-59) POC ALT 39 IU/L IU/L (21-72) POC Alk Phosphatase 91 IU/L IU/L (38-126) POC Troponin I 0.00 ng/mL ng/mL (0.00-0.08) POC Total Protein 6.6 g/dL g/dL (6.3-8.2) POC Albumin 4.2 g/dL g/dL (3.5-5.0) Lipase Ethyl Alcohol 11/19/17 11/19/17 19:10 19:10 PT 13.3 SEC SEC (12.0-15.0) INR 0.99 (0.83-1.16) APTT 24.4 SEC SEC (23.0-38.0) POC Sodium POC Potassium POC Chloride POC Total CO2 POC BUN POC Creatinine POC Glucose POC Lactic Acid Raimundo POC Calcium Magnesium 1.7 mg/dL mg/dL (1.6-2.3) POC Total Bilirubin POC AST POC ALT POC Alk Phosphatase POC Troponin I POC Total Protein POC Albumin Lipase 152 IU/L IU/L (23-300) Ethyl Alcohol < 10 mg/dL mg/dL (0-10) Medications Given: Lorazepam (Ativan Injection) 1 mg IVP ONCE ONE Stop: 11/19/17 20:09 Last Admin: 11/19/17 20:14 Dose: 1 mg Lorazepam (Ativan Injection) 2 mg IVP ONCE ONE Stop: 11/19/17 21:44 Last Admin: 11/19/17 21:53 Dose: 2 mg Discontinued Medications Chlordiazepoxide HCl (Librium) 50 mg PO EDNOW ONE Stop: 11/19/17 19:50 Last Admin: 11/19/17 20:02 Dose: 50 mg Famotidine (Pepcid) 20 mg IVP EDNOW ONE Stop: 11/19/17 19:49 Last Admin: 11/19/17 20:02 Dose: 20 mg Sodium Chloride (Ns) 1,000 mls @ 0 mls/hr IV ONCE ONE PRN Reason: Wide Open Stop: 11/19/17 18:53 Last Admin: 11/19/17 19:20 Dose: 1,000 mls Lorazepam (Ativan Injection) 1 mg IVP EDNOW ONE Stop: 11/19/17 18:53 Last Admin: 11/19/17 19:41 Dose: 1 mg Lorazepam (Ativan Injection) 1 mg IVP EDNOW ONE Stop: 11/19/17 18:53 Last Admin: 11/19/17 19:34 Dose: 1 mg Lorazepam (Ativan Injection) 2 mg IVP EDNOW ONE Stop: 11/19/17 20:40 Last Admin: 11/19/17 20:44 Dose: 2 mg Phenobarbital Sodium (Phenobarbital) 130 mg IVP ONCE ONE Stop: 11/19/17 19:49 Last Admin: 11/19/17 20:07 Dose: Not Given Point of Care Test Results: CBC CBC Collection Date 11/19/17 CBC Collection Time 19:10 WBC 8.2 RBC 4.84 HGB 14.7 HCT 43.9 PLT 271 Neut # 6.6 Neut 79.9 LYMPH # 1.2 LYMPH 14.9 Other WBC # 0.4 Other WBC 5.2 MCV 90.7 Chemistry 11/19/17 11/19/17 19:17 19:16 POC Sodium 140 mEq/L mEq/L (135-145) POC Potassium 3.2 mEq/L L mEq/L (3.3-5.0) POC Chloride 104.0 mEq/L mEq/L (97-110) POC Total CO2 21 mEq/L L mEq/L (22-31) POC BUN 7 mg/dL mg/dL (7-23) POC Creatinine 0.8 mg/dL mg/dL (0.7-1.3) POC Glucose 90 mg/dL mg/dL (70-100) POC Calcium 8.7 mg/dL mg/dL (8.5-10.4) POC Total Bilirubin 0.8 mg/dL mg/dL (0.1-1.4) POC AST 50 IU/L IU/L (17-59) POC ALT 39 IU/L IU/L (21-72) POC Alk Phosphatase 91 IU/L IU/L (38-126) POC Troponin I 0.00 ng/mL ng/mL (0.00-0.08) POC Total Protein 6.6 g/dL g/dL (6.3-8.2) POC Albumin 4.2 g/dL g/dL (3.5-5.0) Blood Gas/Lactic Acid-Venous 11/19/17 19:18 POC Lactic Acid Raimundo 0.9 mmol/L mmol/L (0.7-2.1) Departure - Departure Disposition: Acute Care Hospital [facility] Clinical Impression: Alcohol withdrawal, Alcohol withdrawal seizure, Alcohol dependence Condition: Serious
[2017-11-19 22:48] VITALS: BP 138/102
== END 2017-11-19 22:40 | disposition short-term general hospital (02) ==
LOC: CED 18:41 → CEDHOLD 19:47 → UNDOADMIN 19:47
DX: F10.239 Alcohol dependence with withdrawal, unspecified (principal); R56.9 Unspecified convulsions; J45.909 Unspecified asthma, uncomplicated; F17.200 Nicotine dependence, unspecified, uncomplicated
CPT/HCPCS: 80053-PO; 83605-PO; 84484-PO; 96374; G0480; J2060; J2560

== ENCOUNTER 2018-01-23 11:49 | Emergency (ER) | payer MEDICAID ==
--- NOTE | 2018-01-23 12:15 | EDPHY ---
H & P Time Seen by Provider: 01/23/18 12:10 HPI/ROS: Chief complaint. Right arm swelling HPI. 32-year-old male presents with right arm swelling for 1 day. He denies injury, IVDA, insect bites. It is from the elbow to the hand that feels swollen. No real symptoms above the elbow. Recent hospitalization for alcohol withdrawal and he had a PICC line however he tells me the PICC line was in his left arm. Radiology report however notes that was in his right arm. He has had no fever, shortness of breath, chest discomfort, abdominal pain. He is using Librium twice daily. ROS Constitutional. no fever/chills, no weakness Eyes. no problems with vision ENT. no sore throat, no nasal drainage Cardiovascular. no chest pain Respiratory. no shortness of breath, no cough Abdominal. no abdominal pain, no nausea/vomiting, no diarrhea . no problems urinating MS. Right arm swelling Skin. no rash Lymph. no swollen glands Neuro. no headache, no dizziness, no difficulty walking or with speech Past Medical/Surgical History: Seizure disorder, TBI, polypharmacy use, benzodiazepine use, anxiety, chronic pain, alcoholism Social History: Single, daily smoker, no alcohol for 1 week Smoking Status: Heavy smoker Physical Exam: General Appearance: Alert well-developed male mild distress vital signs significant for heart rate 109 Eyes: Pupils equal and round no pallor or injection. ENT, Mouth: Mucous membranes are moist. Respiratory: There are no retractions, lungs are clear to auscultation. Cardiovascular: Regular rate and rhythm. Gastrointestinal: Abdomen is soft and nontender, no masses, bowel sounds normal. Neurological: Awake and alert, sensory and motor exams grossly normal. Skin: Warm and dry, no rashes. Musculoskeletal: Neck is supple nontender. Extremities diffuse swelling to the right forearm and hand. No evidence of surface trauma or infection. There is no erythema or evidence for cellulitis. Radial pulses full and symmetrical to left. Sensation and movement are normal Psychiatric: Patient is oriented X 3, there is no agitation. Constitutional: Initial Vital Signs Temperature (C) 36.9 C 01/23/18 11:57 Heart Rate 109 H 01/23/18 11:57 Respiratory Rate 18 01/23/18 11:57 Blood Pressure 139/88 H 01/23/18 11:57 O2 Sat (%) 95 01/23/18 11:57 O2 Delivery Mode Room Air Allergies/Adverse Reactions: bee pollen Allergy (Severe, Verified 01/23/18 11:57) Dyspnea Home Medications: Medication Instructions Recorded clonIDINE [Catapres (*)] 0.1 mg PO TID 11/19/17 Albuterol [Proventil Inhaler HFA 1 - 2 puffs IH DAILY PRN 11/30/17 (*)] Pregabalin [Lyrica 100mg (*)] 100 mg PO TID 11/30/17 traZODone [traZODONE 100MG (*)] 100 mg PO HS 11/30/17 chlordiazePOXIDE [Librium 25 mg 25 mg PO TID 01/01/18 (*)] levETIRAcetam [Keppra 500 mg (*)] 500 mg PO BID 01/01/18 Gabapentin [Neurontin] 600 mg PO TID #90 tablet 01/03/18 Medical Decision Making - Diagnostics Imaging Results: Ultrasound of the right upper extremity reviewed by me and discussed with Dr. Hilliard shows a short segment of non occlusive thrombus (there is flow going through it) in the basilic vein. No evidence for DVT Procedures: Review treatment plan on up-to-date ED Course/Re-evaluation: Re-evaluation at 1 12:07 p.m.. Patient is stable. He and I discussed imaging study results, treatment plan including criteria for return importance of follow -up and further evaluation. He expresses understanding and agreement Differential Diagnosis: Patient has evidence clinically of thromboembolic disease. However ultrasound shows no evidence for DVT and just a short segment of nonocclusive thrombus in the basilic vein. I have considered other causes of trauma. I do not think this represents thoracic outlet syndrome. There is no evidence for cellulitis. Patient had a PICC line recently however it was in the left arm and not the involved arm. Departure - Departure Disposition: Home, Routine, Self-Care Clinical Impression: Swelling of arm Condition: Good Instructions: Arm Pain (ED) Additional Instructions: Keep arm elevated as much as possible next 1-2 days. You may use you're arm and activity as tolerated. Aspirin 325 mg daily for the next week Return for worsening symptoms. Recheck by your regular physician in 2-3 days without fail for continuing symptoms Referrals: Emilio Waters MD [Primary Care Provider] - 2-3 days, if not improved
[2018-01-23 13:32] VITALS: BP 135/85
== END 2018-01-23 13:26 | disposition home or self-care (01) ==
LOC: CED 11:49
DX: R22.31 Localized swelling, mass and lump, right upper limb (principal); I82.819 Embolism and thrombosis of superficial veins of unspecified lower extremity; F17.200 Nicotine dependence, unspecified, uncomplicated
CPT/HCPCS: 93971-PO

== ENCOUNTER 2018-01-23 18:15 | Emergency (ER) | payer MEDICAID ==
[2018-01-23 18:20] VITALS: BP 142/94
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
== END 2018-01-23 19:55 | disposition home or self-care (01) ==
DX: I82.611 Acute embolism and thrombosis of superficial veins of right upper extremity (principal)

== ENCOUNTER 2018-02-25 06:49 | Inpatient (IN) | payer MEDICAID ==
[2018-02-25] MEDS ORDERED: LORazepam 2 MG/ML INJ ONE (06:52)
[2018-02-25] MEDS ORDERED: chlordiazePOXIDE 25 MG CAP ONE (06:53)
[2018-02-25] MEDS ORDERED: LORazepam 2 MG/ML INJ IM PRN (06:58)
[2018-02-25] MEDS ORDERED: NS 1,000 ML IV ONE ×2 (06:59→07:04)
[2018-02-25] MEDS ORDERED: chlordiazePOXIDE 25 MG CAP PO ONE ×2 (06:59→14:52)
[2018-02-25] MEDS ORDERED: LORazepam 2 MG/ML INJ IVP ONE ×4 (07:04→07:51)
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
[2018-02-25] MEDS ORDERED: LORazepam 2 MG/ML INJ IM ONE (07:17)
[2018-02-25] MEDS ORDERED: LEVALBUTEROL 1.25 MG/3 ML DEYVIAL IH ONE (07:24)
[2018-02-25] MEDS ORDERED: LORazepam 1 MG TAB PO PRN (07:40)
[2018-02-25] MEDS ORDERED: ONDANSETRON 4 MG/2 ML VIAL IVP ONE (07:51)
[2018-02-25] MEDS ORDERED: PHENobarbital NA 130 MG/ML VIAL IVP ONE (07:55)
[2018-02-25] MEDS ORDERED: FLUMAZENIL 0.5 MG/5 ML MDV IVP PRN (11:14)
[2018-02-25] MEDS ORDERED: ONDANSETRON 4 MG/2 ML VIAL IVP PRN (11:15)
[2018-02-25] MEDS ORDERED: ONDANSETRON DISINTEGRATING 4 MG TAB PO PRN (11:15)
[2018-02-25] MEDS: LORazepam 2 MG/ML INJ IVP PRN ×6 (11:23→19:54)
[2018-02-25] MEDS ORDERED: GABAPENTIN 300 MG CAP PO PRN (11:29)
[2018-02-25] MEDS: NS 1,000 ML IV SCH ×2 (11:55→19:54)
[2018-02-25] MEDS: PANTOPRAZOLE SODIUM 40 MG VIAL IVP SCH ×2 (11:56→20:05)
[2018-02-25] MEDS: NICOTINE 21 MG/24 HR PATCH TD SCH (11:56)
--- NOTE | 2018-02-25 12:03 | GHP ---
DATE OF ADMISSION: 02/25/2018 HISTORY OF PRESENT ILLNESS: The patient is a pleasant 32-year-old gentleman with a history of heavy alcohol use, alcohol dependence, and admissions to our hospital for alcohol withdrawal, who presents with alcohol withdrawal. The details are a bit vague. He apparently had a seizure last night. Said he has been without alcohol for 10 days. He does have a seizure disorder, and I discharged him from this hospital in December. We gave him 3 months of Neurontin. He says he might have bitten his tongue. He says he has black stool. He has had chills but no fever s. No sputum. No shortness of breath. He does smoke cigarettes. It sounds like this is a decision to stop drinking. He wishes to cut down, but he has struggled. REVIEW OF SYSTEMS: Complete 10-point review of systems was conducted, negative, except as noted in t he HPI. PAST MEDICAL HISTORY: 1. Alcoholism with alcohol dependence. 2. Alcohol withdrawal. 3. Seizure disorder. 4. Anxiety disorder. 5. Neuropathy. 6. Chronic pain. 7. Traumatic brain injury. 8. He had an ex lap as a child. 9. Rotator cuff repair. FAMILY HISTORY: Notable for multiple family members with alcohol and polysubstance abuse disorder. SOCIAL HISTORY: Alcohol and cigarettes. ALLERGIES: Bee pollen. HOME MEDICATIONS: Clonazepam, gabapentin, and pregabalin. PHYSICAL EXAMINATION: VITAL SIGNS: Temp 37, blood pressure 143/118, pulse 118, breathing 22 times a minute, 90% on 2 L. GENERAL: No acute distress, tremulous. HEENT: Sclerae anicteric. Oropharynx clear. Mucous membranes are moist. There is a bite amado on his lip, some black stuff in his mouth. NECK: Supple, without lymphadenopathy or JVD. LUNGS: Clear to auscultation bilaterally. HEART: S1, S2. ABDOMEN: Soft, nontender, nondistended. LOWER EXTREMITIES: Without edema. Calves are no ntender. SKIN: Without rash. NEUROLOGIC: Exam is nonfocal. He is a bit encephalopathic, but he i s alert and able to answer questions. Does not appear postictal. LABORATORY DATA: Labs from Urgent Care show a sodium 135, potassium 4.8, chloride 112, bicarb 20, BU N 6, creatinine 0.6, glucose 109. GGT is modestly elevated at 89. LFTs are otherwise unremarkable. Tox screen is not sent. There is no CBC. Chest x-ray interpreted by me shows no acute cardiopulmon alejandro disease. EKG interpreted by me shows sinus tach at 119, with normal axis and intervals, and no S T or T-wave changes. I have discussed the case with Dr. Bishop Zepeda. ASSESSMENT/PLAN: A 32-year-old gentleman with acute alcohol withdrawal. 1. Alcohol withdrawal. Confrontation with this patient. He received 10 mg Ativan and 25 of Librium in urgent care, with still ongoing withdrawal symptoms. We will put him on scheduled Librium 25 t.i .d., as well as p.r.n. Ativan. We will follow. We will hold off on Precedex drip at this point in t eris, although he may need it. 2. Black diarrhea with dark vomit. He has a normal BUN, which argues against an upper gastrointesti nal bleed. What we will do is go ahead and put him on b.i.d. Protonix and check a CBC. 3. Sinus tachycardia attributable to alcohol withdrawal. 4. Elevated GGT. It is within reason this patient would have liver inflammation from his heavy alco hol use. DISPOSITION: ICU status. Thirty-five minutes of critical care. /[id number]/MODL
[2018-02-25 12:24] LABS: PLATELET COUNT 309 10^3/uL (150-400)
--- NOTE | 2018-02-25 13:53 | PDMN ---
Medical Necessity Medical necessity: Pt meets IP criteria per & [facility] M-595; est los >2 mn for eval/tx of acute alcohol withdrawal s/p seizure w/tachycardia, elevated GGT, black diarrhea/vomiting; admit to ICU for close monitoring, CIWA protocol, IVFs & IV Protonix; hx seizure disorder, alcoholism, TBI; per H&P & order 02/25/18
--- NOTE | 2018-02-25 15:20 | GCON ---
PULMONARY/CRITICAL CARE CONSULTATION. DATE OF CONSULTATION: 02/25/2018 REFERRING PHYSICIAN: Judson Acevedo MD REASON FOR REFERRAL: Evaluation and management of alcohol withdrawal. HISTORY: The patient is a 32-year-old male with a history of heavy alcohol use and alcohol withdrawa l, including seizures. He has been drinking heavily recently and had his last drink at about midnigh t last night. He thinks he had a seizure last night. He thinks he may have bitten his tongue. He w as brought in because he wishes to cut down or stop drinking and is admitted for treatment of alcohol withdrawal as he reports symptoms of tremulousness, headaches, and a sensation of pins and needles o n his extremities, as well as anxiety. PAST MEDICAL HISTORY: 1. Alcoholism. 2. History of alcohol withdrawal tremors, as well as seizure. 3. Anxiety disorder. 4. Neuropathy. 5. History of traumatic brain injury. MEDICATIONS: At time of admission, include clonazepam, gabapentin, and pregabalin. ALLERGIES: Bee pollen. SOCIAL HISTORY: The patient drinks heavily and also smokes cigarettes. FAMILY HISTORY: Unremarkable. REVIEW OF SYSTEMS: A 10-point review of systems adds nothing to the history of present illness. PHYSICAL EXAMINATION: GENERAL: The patient is awake and alert. VITAL SIGNS: His blood pressure is 138/89. His heart rate is 110. His oxygen saturations are 93% on room air. He is afebrile. HEENT : Normocephalic and atraumatic. No icterus. NECK: No JVD. No adenopathy. Trachea is midline. C HEST: Clear to auscultation. CARDIAC: Regular tachycardia without murmur. ABDOMEN: Soft and nont amaris. Bowel sounds are present. EXTREMITIES: No clubbing, cyanosis, or edema. NEURO: The patien t is awake and alert, but has been sleeping on and off with the Ativan. He has a strong bilateral in tention tremor. He has no focal motor weakness. LABORATORY/IMAGING: CBC is normal. Creatinine 0.6. AST is 45 with an ALT of 27. Bicarbonate level is 20. Lipase is 91. Chest x-ray shows clear lung easton. Images reviewed by me. ASSESSMENT: 1. Alcohol withdrawal. The patient reports symptoms of alcohol withdrawal, including tremor, headac he, and his paresthesias. In addition, he is also tachycardic. He has been responding to Ativan. Luis calvo has received 8 mg in the last several hours and just woke up after his last dose and reports that luis calvo feels his withdrawal symptoms are persistent/worsening. 2. Seizure. This could have been related to alcohol withdrawal, although he apparently also has an underlying seizure disorder. He has not had a seizure activity since hospitalization. RECOMMENDATIONS: 1. Continue IV fluids. 2. Ativan per protocol. 3. He is also written to receive some scheduled Librium. I will add an additional 25 mg now as he i s not scheduled to get any Librium until 4 o'clock. 4. Continue thiamine and nicotine replacement. 5. If the patient is not being well controlled with Ativan/Librium, could use Precedex. /[id number]/MODL
[2018-02-25] MEDS: GABAPENTIN 300 MG CAP PO SCH ×2 (16:13→21:03)
[2018-02-25] MEDS: PREGABALIN 150 MG CAP PO SCH ×2 (16:13→21:04)
[2018-02-25] MEDS: chlordiazePOXIDE 25 MG CAP PO SCH ×2 (16:13→21:04)
--- NOTE | 2018-02-25 16:13 | ASMTLACE ---
LORRAINE Acuity / Level of Answers: Yes Care: Did the patient have an inpatient admission? Comorbidities - select Answers: Opioid dependence all that apply / Chronic pain Other Notes: Asthma; Epilepsy; TBI # of Emergency department Answers: 9-12 visits in the last 6 months Social determinants Answers: History of substance abuse (ETOH, street drugs, prescription drugs, etc.) History of trauma (PTSD, child abuse, domestic violence, etc.) Mental health diagnosis (anxiety, depression, pers onality disorders, etc.) Score: 22 Date Signed: 02/25/2018 04:12 PM Electronically Signed By:Mary Benavides
[2018-02-25] MEDS ORDERED: DIAZEPAM 5 MG/ML 1 ML SYR IVP ONE (17:47)
[2018-02-25] MEDS: traZODone 100 MG TAB PO SCH (20:05)
[2018-02-25] MEDS ORDERED: FAMOTIDINE 20 MG/NACL 50 ML IV SCH (21:00)
[2018-02-26] MEDS: NS 1,000 ML IV SCH (03:43)
[2018-02-26] MEDS: clonazePAM 1 MG TAB PO PRN ×2 (03:45→19:24)
[2018-02-26] MEDS: ACETAMINOPHEN 325 MG TAB PO PRN (03:45)
[2018-02-26 05:54] LABS: INR 0.92 (0.83-1.16); PROTIME(PATIENT) 12.6 SEC (12.0-15.0)
[2018-02-26 05:59] LABS: PLATELET COUNT 247 10^3/uL (150-400)
[2018-02-26] MEDS: NICOTINE 21 MG/24 HR PATCH TD SCH (08:02)
[2018-02-26] MEDS: LORazepam 2 MG/ML INJ IVP PRN ×2 (08:02→20:58)
[2018-02-26] MEDS: THIAMINE HCL 500 MG in NS 100 ML IV SCH (08:02)
[2018-02-26] MEDS: PANTOPRAZOLE SODIUM 40 MG VIAL IVP SCH ×2 (08:02→20:25)
[2018-02-26] MEDS: chlordiazePOXIDE 25 MG CAP PO SCH ×3 (08:03→20:24)
[2018-02-26] MEDS: ENOXAPARIN 40 MG/0.4 ML SYR SC SCH (08:03)
[2018-02-26] MEDS: PREGABALIN 150 MG CAP PO SCH (08:03)
[2018-02-26] MEDS: GABAPENTIN 300 MG CAP PO SCH ×3 (08:03→20:25)
--- NOTE | 2018-02-26 08:54 | HOSPPROG ---
Hospitalist Progress Note Assessment/Plan: 32 yo M w alcoholism, alcohol dependence here w withdrawal alcohol withdrawal: definitely im withdrawal, but I agree he may be overrepresenting his sx. he has many ICU admissions for withdrawal and understands triggers for CIWA that yield more benzos 1. does not need precedex 2. continue librium, prn ativan- use po 3. HR is a good guide of withdrawal seizure disorder: on both lyrica and neurontin as outpt suspect this is a duplicate hold lyrica, continue neurontin broken tooth: probably old prn oxycodone hold abx proph: lmwh dispo icu for now he asked how long he'd be here- reasonable to take 2 more days to treat withdrawal Subjective: did not require precedex overnight. nurding concerned he is overrepresenting his withdrawal sx. c/o tooth pain at fracture L upper molar. case d/w Dr. Funez Objective: Vital Signs Temp Pulse Resp BP Pulse Ox 36.6 C 93 14 148/83 H 95 02/26/18 04:00 02/26/18 06:00 02/26/18 06:00 02/26/18 06:00 02/26/18 06:00 Laboratory Results 02/26/18 05:30 02/26/18 05:30 02/25/18 02/26/18 02/27/18 05:59 05:59 05:59 Intake Total 6979 Output Total 3150 850 Balance 3829 -850 PT 12.6 SEC (12.0-15.0) 02/26/18 05:30 INR 0.92 (0.83-1.16) 02/26/18 05:30 - Physical Exam Constitutional: no apparent distress, appears nourished Eyes: PERRL, anicteric sclera Ears, Nose, Mouth, Throat: other (fractured L upper molar. no foul breath/ purulence) Cardiovascular: tachycardia, No systolic murmur Respiratory: no respiratory distress, no rales or rhonchi Gastrointestinal: normoactive bowel sounds, soft, non-tender abdomen Genitourinary: No smith in urethra Skin: warm, normal color Musculoskeletal: full muscle strength, no muscle tenderness Neurologic: AAOx3, other (tremulous) Psychiatric: interacting appropriately ICD10 Worksheet Patient Problems: Problems Problem Status Onset Alcohol withdrawal Acute Bronchitis Acute Seizure Acute Vomiting Acute Alcohol dependence Acute
[2018-02-26] MEDS: oxyCODONE IR 5 MG TAB PO PRN ×4 (10:20→23:22)
[2018-02-26] MEDS: LORazepam 1 MG TAB PO PRN ×4 (10:56→23:22)
[2018-02-26] MEDS: ORAL BALANCE GEL TUBE PO SCH ×3 (13:09→21:21)
--- NOTE | 2018-02-26 13:27 | PDINTPN ---
Coach Progress Note Assessment/Plan: Assessment: EtOH withdrawal: Overall doing well on scheduled Librium and frequent IV Ativan. Now changed to PO Ativan. He reports symptoms, but is sleeping/ somnolent much of the time. His HR was down overnight, but up a bit this afternoon. Fractured tooth: C/O Pain. Improved with codeine. Plan: Increase scheduled PO Librium. Continue PRN Ativan PO. Codeine PRN. Hopefully can go to floor by tomorrow. 02/26/18 13:27 Subjective: The patient reports feeling anxious, and is unsteady when walking. He has tooth pain related to a tooth that he fractured this morning. Objective: Vital Signs Temp Pulse Resp BP Pulse Ox 36.7 C 102 H 16 140/86 H 94 02/26/18 11:57 02/26/18 13:00 02/26/18 13:00 02/26/18 13:00 02/26/18 13:00 Laboratory Results 02/26/18 05:30 02/26/18 05:30 02/25/18 02/26/18 02/27/18 05:59 05:59 05:59 Intake Total 6979 1020 Output Total 3150 1750 Balance 3829 -730 PT 12.6 SEC (12.0-15.0) 02/26/18 05:30 INR 0.92 (0.83-1.16) 02/26/18 05:30 Physical Exam - Physical Exam General Appearance: No alert (a bit drowsy, but conversant when awakened.) EENT: other (fractured left uppper molar cusp) Neck: normal inspection Respiratory: lungs clear Cardiac/Chest: normal peripheral pulses, regular rate, rhythm Abdomen: normal bowel sounds, non-tender Skin: normal color, warm/dry Extremities: normal inspection Neuro/Psych: oriented x 3, No alert, No normal mood/affect (sedated), No motor weakness ICD10 Worksheet Patient Problems: Problems Problem Status Onset Alcohol withdrawal Acute Bronchitis Acute Seizure Acute Vomiting Acute Alcohol dependence Acute
[2018-02-26] MEDS: traZODone 100 MG TAB PO SCH (23:23)
[2018-02-27] MEDS: oxyCODONE IR 5 MG TAB PO PRN ×5 (03:40→22:59)
[2018-02-27] MEDS: LORazepam 1 MG TAB PO PRN ×4 (03:40→15:35)
[2018-02-27] MEDS: ORAL BALANCE GEL TUBE PO SCH ×4 (06:29→21:51)
[2018-02-27] MEDS: GABAPENTIN 300 MG CAP PO SCH ×3 (07:59→21:51)
[2018-02-27] MEDS: chlordiazePOXIDE 25 MG CAP PO SCH ×3 (08:00→21:50)
[2018-02-27] MEDS: PANTOPRAZOLE SODIUM 40 MG VIAL IVP SCH ×2 (08:00→21:49)
[2018-02-27] MEDS: ENOXAPARIN 40 MG/0.4 ML SYR SC SCH (08:00)
[2018-02-27] MEDS: NICOTINE 21 MG/24 HR PATCH TD SCH (08:00)
[2018-02-27] MEDS: THIAMINE HCL 500 MG in NS 100 ML IV SCH (10:42)
[2018-02-27] MEDS: LORazepam 2 MG/ML INJ IVP PRN (13:07)
[2018-02-27] MEDS: clonazePAM 1 MG TAB PO PRN (13:17)
--- NOTE | 2018-02-27 16:08 | HOSPPROG ---
Hospitalist Progress Note Assessment/Plan: Subjective Follow-up on alcohol withdrawal. Patient states that he has a plan for alcohol rehabilitation in [place]. His brother stated that he was going to fly him out there on Thursday. It sounds like much of his family currently resides in [place]. Otherwise no acute events overnight. Objective Vital signs as detailed below Exam General-patient was awake alert but appeared somewhat sedate he was conversant. Heart-regular rate and rhythm no murmurs Lungs-Clear to auscultation with normal respiratory effort Abdomen-soft nontender nondistended normal bowel sounds -no Bo catheter in place Extremities-no significant pitting edema or calf pain with palpation Skin-no concerning skin rashes noted Labs as detailed below Assessment and plan Alcohol withdrawal-patient appears common slightly sedate this afternoon on exam. I think we can wean down his dose of Librium to 25 mg 3 times a day. Continue with oral Ativan as needed per CIWA scale. Seizure disorder-continue with Lyrica. Anxiety-it sounds like patient has been in the care of a psychiatrist in the past and taken SSRI therapy with no improvement. DVT prophylaxis-Lovenox. Disposition-hopefully discharge in the coming 1-2 days with continued stability so that he can make his flight to [place] this coming Thursday. Objective: Vital Signs Temp Pulse Resp BP Pulse Ox 36.4 C 111 H 16 106/70 94 02/26/18 19:01 02/27/18 15:39 02/27/18 15:39 02/27/18 15:39 02/27/18 15:39 Laboratory Results 02/26/18 05:30 02/27/18 05:40 02/26/18 02/27/18 02/28/18 05:59 05:59 05:59 Intake Total 4495 4092 Output Total 3150 3100 Balance 3829 992 PT 12.6 SEC (12.0-15.0) 02/26/18 05:30 INR 0.92 (0.83-1.16) 02/26/18 05:30 ICD10 Worksheet Patient Problems: Problems Problem Status Onset Alcohol withdrawal Acute Bronchitis Acute Seizure Acute Vomiting Acute Alcohol dependence Acute
[2018-02-27] MEDS ORDERED: LORazepam 2 MG/ML INJ ONE (16:21)
[2018-02-27] MEDS: traZODone 100 MG TAB PO SCH (21:50)
[2018-02-27] MEDS: ACETAMINOPHEN 325 MG TAB PO PRN (21:50)
--- NOTE | 2018-02-27 22:22 | HOSPPROG ---
Hospitalist Progress Note Assessment/Plan: Contacted by RN, patient experienced tonight when this fall while he was up to the bathroom, reports that he fell on his right arm, denies overt pain in his right arm, denies head trauma, but on the nurse's evaluation of the patient his mental status has declined since her evaluation earlier on shift. -bedside evaluation of the patient demonstrates that he is alert awake oriented times person only, concentration is 0/7, naming is 3/3, he has bilateral upper extremity tremulousness, very mild asterixis, delayed thought process and speech pattern -his alcohol withdrawal is most likely escalating, and the nurse will give him 2 mg of IV Ativan at this time, reassessing with CIWA score, which is currently 17 -he is currently not combative or agitated, and he is safe to remain on the med surge unit, but if his frequency of Ativan doses escalates due to uncontrolled withdrawal, then he may require higher level of care in the step-down unit -he does not currently require Precedex for behavior -given his mental status changes which have been notable since his fall, it is prudent to get noncontrast head CT to ensure no intracranial hemorrhage, although I suspect his mental status changes are purely secondary to escalating withdrawal -he is not currently expressing any musculoskeletal pain in his upper extremities, but if this changes, then would recommend x-ray for further evaluation Objective: Vital Signs Temp Pulse Resp BP Pulse Ox 36.4 C 105 H 18 124/70 H 93 02/26/18 19:01 02/27/18 21:40 02/27/18 21:40 02/27/18 21:40 02/27/18 21:40 Laboratory Results 02/26/18 05:30 02/27/18 05:40 02/26/18 02/27/18 02/28/18 05:59 05:59 05:59 Intake Total 6979 4092 500 Output Total 3150 3100 Balance 3829 992 500 PT 12.6 SEC (12.0-15.0) 02/26/18 05:30 INR 0.92 (0.83-1.16) 02/26/18 05:30 ICD10 Worksheet Patient Problems: Problems Problem Status Onset Bronchitis Acute Vomiting Acute Seizure Acute Alcohol withdrawal Acute Alcohol dependence Acute
[2018-02-27] MEDS ORDERED: LORazepam 2 MG/ML INJ IVP ONE (22:37)
[2018-02-28 04:29] LABS: PLATELET COUNT 230 10^3/uL (150-400)
[2018-02-28] MEDS: ORAL BALANCE GEL TUBE PO SCH ×4 (05:02→21:52)
[2018-02-28] MEDS: oxyCODONE IR 5 MG TAB PO PRN ×6 (05:39→21:42)
[2018-02-28] MEDS: LORazepam 1 MG TAB PO PRN ×5 (05:49→21:41)
[2018-02-28] MEDS: chlordiazePOXIDE 25 MG CAP PO SCH ×3 (07:30→21:41)
[2018-02-28] MEDS: GABAPENTIN 300 MG CAP PO SCH ×3 (07:30→21:42)
[2018-02-28] MEDS: NICOTINE 21 MG/24 HR PATCH TD SCH (07:36)
--- NOTE | 2018-02-28 09:34 | ASMTCMCOM ---
CM Note CM Note Notes: Pt admitted for acute etoh withdrawl, it seems he is trying to quit drinking and may have had a seizure. He also had a fall in the bathroom last night. DC needs unclear but will benefit from resources for etoh. DC Plan: TBD Date Signed: 02/28/2018 09:33 AM Electronically Signed By:Agata Navas RN
[2018-02-28] MEDS: PANTOPRAZOLE SODIUM 40 MG VIAL IVP SCH (09:50)
[2018-02-28] MEDS: ENOXAPARIN 40 MG/0.4 ML SYR SC SCH (09:50)
[2018-02-28] MEDS: THIAMINE HCL 100 MG TAB PO SCH (12:35)
[2018-02-28] MEDS ORDERED: oxyCODONE IR 5 MG TAB PO PRN (14:53)
[2018-02-28] MEDS ORDERED: IBUPROFEN 600 MG TAB PO PRN (15:16)
--- NOTE | 2018-02-28 18:51 | GDS ---
DISCHARGE DIAGNOSIS: Alcohol withdrawal. HISTORY OF PRESENT ILLNESS: The patient is a 32-year-old gentleman with past medical history of alco hol abuse who was admitted to [facility] on 02/25/2018, with alcohol withdrawal. He was placed on a Librium taper, which we have gradually tapered over the past couple of days. He was also on as needed lorazepam. He also had a chipped tooth which was causing a significant amount of p ain requiring oxycodone. The patient told me yesterday that his brother in [place] plans to f ly out to [place] tomorrow and then they were going to fly back [facility] [place] [facility]. It sounds like his brother has been looking into rehab options for him in [place] w here the patient has more family support as compared to what he has here in [place]. Today, we disc ussed a plan for discharge tomorrow morning and to include a Librium taper along with as needed loraz epam. I did tell him as well that I would refill his gabapentin for the next 1 month to allow enough of a prescription to last him to get settled in [place]. We did discuss oxycodone and ashwini byrd states he did not feel he would need a prescription for oxycodone for pain relief as he planned to go to his dentist tomorrow after discharge to have the tooth extracted. I electronically sent the ab ove-listed prescriptions to the patient's requested pharmacy this evening and I have shared with the patient that I have electronically sent these to the pharmacy as well. HOSPITAL COURSE: Alcohol withdrawal: Patient seems to be doing reasonably well. I recommend contin uing with Librium 25 mg 3 times a day for 2 days and then decrease to twice a day for 2 days and then once a day for 2 days and then stop. As needed Ativan can also be used at a half to 1 mg every 4 ho urs as needed. Seizure disorder: This is the apparent indication for gabapentin. I did discuss with him that the g abapentin may be helpful for limiting his alcohol consumption as well. Anxiety: The patient has been under the care of psychiatrist in the past and taken SSRIs which he ap parently did not tolerate. DVT prophylaxis: Patient has been on Lovenox. DISPOSITION: The patient will be discharged from the hospital 03/01/2018, and will be traveling to [facility] on 03/02/2018, with his brother where he has more family support and will look into [facility] rehab options in [place]. DISCHARGE PHYSICAL EXAMINATION: VITAL SIGNS: Temperature 36.4, blood pressure 114/83, heart rate 11 4, respirations 16, sating 92% on room air. GENERAL: Patient appeared comfortable in no acute distr ess. No tremulous activity appreciated. He was oriented and alert. HEART: Regular. No murmurs. L UNGS: Clear on auscultation. Normal respiratory effort. ABDOMEN: Soft, nontender, nondistended. G U: No Bo catheter in place. EXTREMITIES: No significant pitting edema. NOTABLE STUDIES: CT scan of the head done 02/27/2018, without intracranial abnormality. White blood cell count 6, hemoglobin 13, platelets 230. Sodium is 140, potassium 4.6, chloride 106, bicarb 29, BUN 15, creatinine 0.8, glucose of 99. DISCHARGE MEDICATIONS: 1. Lorazepam 0.5-1 mg every 4 hours as needed. 2. Librium 25 mg 3 times a day x2 days, then 2 times a day for 2 days, then once a day for 2 days, t hen stop. 3. Gabapentin 600 mg 3 times a day. These prescriptions were electronically sent to the patient's requested pharmacy on file. DISCHARGE INSTRUCTIONS: I recommend establishing with a primary physician in [place] once he gets established there. /[id number]/MODL
[2018-02-28] MEDS: traZODone 100 MG TAB PO SCH (23:52)
[2018-03-01] MEDS: ORAL BALANCE GEL TUBE PO SCH (04:20)
[2018-03-01] MEDS: oxyCODONE IR 5 MG TAB PO PRN ×2 (04:20→08:24)
[2018-03-01] MEDS: ENOXAPARIN 40 MG/0.4 ML SYR SC SCH (07:57)
[2018-03-01 08:10] VITALS: BP 112/92
[2018-03-01] MEDS: chlordiazePOXIDE 25 MG CAP PO SCH (08:23)
[2018-03-01] MEDS: THIAMINE HCL 100 MG TAB PO SCH (08:23)
[2018-03-01] MEDS: GABAPENTIN 300 MG CAP PO SCH (08:23)
[2018-03-01] MEDS: NICOTINE 21 MG/24 HR PATCH TD SCH (08:26)
[2018-03-01] MEDS ORDERED: LORazepam 1 MG TAB PO PRN (09:29)
--- NOTE | 2018-03-01 09:45 | ASDISCHSUM ---
Discharge Information Plan Status:Home with No Needs Medically Cleared to Leave: Discharge Date: CM D/C Disposition:Home, Routine, Self-Care ADT D/C Disposition:Home, Routine, Self-Care Projected Discharge Date: Transportation at D/C:Taxicab Discharge Delay Reason: Follow-Up Date: Discharge Slot: Final Diagnosis: Placement Information Patient Contact Information Contact Name:LUCIAN Relationship:Father Address:[facility] [address] City:[place] Alternate Phone: State/Zip Code:[place] [address] Email: Financial Information Financial Class:Medicaid Primary Plan Desc:MEDICA[employer] FIRST [place] Primary Plan Number:[id number] Secondary Plan Desc: Secondary Plan Number: Assessment Information LACE LACE Acuity / Level of Answers: Yes Care: Did the patient have an inpatient admission? Comorbidities - select Answers: Opioid dependence all that apply / Chronic pain Other Notes: Asthma; Epilepsy; TBI # of Emergency department Answers: 9-12 visits in the last 6 months Social determinants Answers: History of substance abuse (ETOH, street drugs, prescription drugs, etc.) History of trauma (PTSD, child abuse, domestic violence, etc.) Mental health diagnosis (anxiety, depression, pers onality disorders, etc.) Score: 22 Date Signed: 02/25/2018 04:12 PM Electronically Signed By:Mary Benavides [facility] CM Progress Note CM Note CM Note Notes: Pt admitted for acute etoh withdrawl, it seems he is trying to quit drinking and may have had a seizure. He also had a fall in the bathroom last night. DC needs unclear but will benefit from resources for etoh. DC Plan: TBD Date Signed: 02/28/2018 09:33 AM Electronically Signed By:Agata Navas RN LORRAINE LACE Length of stay for Answers: 4-6 days current admission Acuity / Level of Answers: Yes Care: Did the patient have an inpatient admission? Comorbidities - select Answers: Opioid dependence all that apply / Chronic pain Other Notes: Asthma; Epilepsy; TBI # of Emergency department Answers: 9-12 visits in the last 6 months Social determinants Answers: History of substance abuse (ETOH, street drugs, prescription drugs, etc.) History of trauma (PTSD, child abuse, domestic violence, etc.) Mental health diagnosis (anxiety, depression, pers onality disorders, etc.) Score: 26 Date Signed: 03/01/2018 09:44 AM Electronically Signed By:Erendira Ware Intervention Information
--- NOTE | 2018-03-01 10:52 | PDDCSUM ---
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 He was having alcohol withdrawal which caused him to present to the ER. The patient has traumatic brain injury in PTSD from duty in [place]. He essentially has been self medicating with alcohol at home and recognizes this as a significant problem. His alcohol withdrawal here has been moderate. He has been on benzodiazepine therapy for 4 days here and his CIWA scores have been mild to moderate. He has been tolerating benzodiazepines without difficulty. There has been no real agitation or confusion. There is no seizures. He has been taking his medicines and cooperating with nurses. At this time he is fully oriented with normal mental status exam, minimal tremor, normal vital signs without fever. He is eating well he is up ambulating without difficulty no signs of gait instability. No evidence of liver failure or other organ failure. The patient is very committed to quitting drinking has very good family support and plans to engage in rehab at the [facility]. He is requesting to be discharged to continue his benzodiazepine therapy for the next few days at home with family support. I believe he is stable to do that and he is going to be very compliant. PENDING TEST RESULTS: None MEDICATION CHANGES: Tapering dose of Librium as well as some p.r.n. Ativan are prescribed for him at this time to complete therapy for his alcohol withdrawal episode as previously described in doctor Wyatt johnson note yesterday FOLLOW-UP PLAN: He and his father will be moving to [place] where they will be staying with family. That is to occur this week. The patient was stable his father until than The patient is 100% disabled on VA benefits from that. 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 Apparently there is a [facility] rehabilitation clinic and hospital very near to where he will be living in [place] and he plans to contact that center today upon return to his father some. Greater than 35 minutes bedside reviewing the patient's current symptoms and treatment, as well as his plans for family support in the immediate future and medical and psychiatric support in the very near future moving forward as above. Reviewed his medications in detail along with possible side effects and the importance of not driving while taking the benzodiazepines.
--- NOTE | 2018-03-04 23:05 | CPEKG ---
Test Reason : OPEN Blood Pressure : / mmHG Vent. Rate : 119 BPM Atrial Rate : 121 BPM P-R Int : 140 ms QRS Dur : 080 ms QT Int : 297 ms P-R-T Axes : 050 068 030 degrees QTc Int : 418 ms Sinus tachycardia Left atrial enlargement Confirmed by Cindy Cassidy ([id number]) on 03/04/2018 11:05:15 PM Referred By: Confirmed By:Cindy Cassidy
== END 2018-03-01 10:53 | disposition home or self-care (01) | DRG 775 ==
LOC: CED 06:49 → CEDHOLD 08:55 → F2N 10:58 → F1N 02-27 11:55
PROVIDERS: ADMIT Internal Medicine; ATTEND Internal Medicine
DX: F10.239 Alcohol dependence with withdrawal, unspecified (principal); E86.9 Volume depletion, unspecified; G40.89 Other seizures; F43.10 Post-traumatic stress disorder, unspecified; Z87.820 Personal history of traumatic brain injury
CPT/HCPCS: 71046-PO; 80053-PO; 80076-PO; 82150-PO; 96374; J1650; J2060; J2405; J2560; J3360; J3411

== ENCOUNTER 2018-03-24 18:24 | Emergency (ER) | payer MEDICAID ==
[2018-03-24] MEDS ORDERED: LORazepam 2 MG/ML INJ ONE (18:44)
[2018-03-24] MEDS ORDERED: LORazepam 2 MG/ML INJ IVP ONE ×4 (18:45→19:57)
[2018-03-24] MEDS ORDERED: ONDANSETRON 4 MG/2 ML VIAL IVP ONE (18:45)
[2018-03-24] MEDS ORDERED: MAG HYDROX/AL HYDROX/SIMETH 30 ML UDCUP PO ONE (18:46)
[2018-03-24] MEDS ORDERED: HYOSCYAMINE SULFATE 0.125 MG TAB SL ONE (18:47)
[2018-03-24] MEDS ORDERED: NS 1,000 ML IV ONE ×2 (18:50→19:57)
[2018-03-24] MEDS ORDERED: LORazepam 2 MG/ML INJ IVP PRN (19:14)
[2018-03-24] MEDS ORDERED: LORazepam 1 MG TAB PO PRN (19:14)
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
[2018-03-24 21:21] VITALS: BP 138/90
== END 2018-03-24 21:55 | disposition short-term general hospital (02) ==
LOC: CED 18:24 → UNDOADMIN 19:42 → CEDHOLD 19:42
DX: G40.909 Epilepsy, unspecified, not intractable, without status epilepticus (principal); R11.2 Nausea with vomiting, unspecified; R10.84 Generalized abdominal pain; E86.9 Volume depletion, unspecified; F10.10 Alcohol abuse, uncomplicated; F17.200 Nicotine dependence, unspecified, uncomplicated
CPT/HCPCS: 71045-PO; 80053-PO; 84484-PO; 96374; G0480; J2060; J2405

== ENCOUNTER 2018-03-29 18:28 | Emergency (ER) | payer MEDICAID ==
[2018-03-29] MEDS ORDERED: LEVALBUTEROL 1.25 MG/3 ML DEYVIAL IH ONE ×2 (18:59→20:10)
[2018-03-29] MEDS ORDERED: LORazepam 2 MG/ML INJ IVP ONE ×2 (18:59→19:44)
[2018-03-29] MEDS ORDERED: NS 1,000 ML IV ONE (19:00)
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
[2018-03-29] MEDS ORDERED: predniSONE 20 MG TAB PO ONE (20:10)
[2018-03-29] MEDS ORDERED: AZITHROMYCIN 250 MG TAB PO ONE (20:11)
[2018-03-29] MEDS ORDERED: CHLORDIAZEPOXIDE 25MG PREPK#6 BTL TAKEHOME ONE (20:14)
[2018-03-29] MEDS ORDERED: ALBUTEROL INH PREPACK MDI TAKEHOME ONE (20:14)
[2018-03-29 20:24] VITALS: BP 120/79
--- NOTE | 2018-04-05 11:04 | CPEKG ---
Test Reason : OPEN Blood Pressure : / mmHG Vent. Rate : 100 BPM Atrial Rate : 099 BPM P-R Int : 150 ms QRS Dur : 085 ms QT Int : 316 ms P-R-T Axes : 053 073 040 degrees QTc Int : 408 ms Sinus tachycardia Probable left atrial enlargement ST elev, probable normal early repol pattern Confirmed by Bishop Zepeda ([id number]) on 04/05/2018 11:03:54 AM Referred By: Confirmed By:Bishop Zepeda
== END 2018-03-29 20:37 | disposition home or self-care (01) ==
LOC: CED 18:28
DX: J20.9 Acute bronchitis, unspecified (principal); F41.9 Anxiety disorder, unspecified; E86.9 Volume depletion, unspecified; F17.200 Nicotine dependence, unspecified, uncomplicated; F10.10 Alcohol abuse, uncomplicated
CPT/HCPCS: 71046-PO; 80053-PO; 84484-PO; 96374; J2060; J7512

== ENCOUNTER 2018-04-02 18:35 | Emergency (ER) | payer MEDICAID ==
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
[2018-04-02] MEDS ORDERED: chlordiazePOXIDE 25 MG CAP PO ONE (18:47)
[2018-04-02 19:24] VITALS: BP 102/72
== END 2018-04-02 19:50 | disposition home or self-care (01) ==
LOC: CED 18:35
DX: Z76.0 Encounter for issue of repeat prescription (principal); F10.920 Alcohol use, unspecified with intoxication, uncomplicated

== ENCOUNTER 2018-06-07 11:15 | Inpatient (IN) | payer MEDICAID ==
[2018-06-07] MEDS ORDERED: chlordiazePOXIDE 25 MG CAP PO ONE (12:24)
[2018-06-07] MEDS ORDERED: LORazepam 2 MG/ML INJ IVP ONE (12:24)
[2018-06-07] MEDS ORDERED: NS 1,000 ML IV ONE ×2 (12:24→13:41)
[2018-06-07] MEDS ORDERED: ONDANSETRON 4 MG/2 ML VIAL IVP ONE (12:27)
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
[2018-06-07] MEDS: LORazepam 2 MG/ML INJ IVP PRN ×8 (13:29→22:41)
[2018-06-07 16:03] LABS: PLATELET COUNT 358 10^3/uL (150-400)
[2018-06-07] MEDS ORDERED: PROMETHAZINE HCL 25 MG/ML INJ IVP PRN (17:05)
[2018-06-07] MEDS ORDERED: ONDANSETRON 4 MG/2 ML VIAL IVP PRN (17:05)
[2018-06-07] MEDS ORDERED: FLUMAZENIL 0.5 MG/5 ML MDV IVP PRN (17:05)
[2018-06-07] MEDS ORDERED: MAG HYDROX/AL HYDROX/SIMETH 30 ML UDCUP PO PRN (17:05)
[2018-06-07] MEDS: NS 1,000 ML IV SCH (17:16)
[2018-06-07] MEDS ORDERED: ALBUTEROL 3 ML DEYVIAL IH PRN (17:40)
[2018-06-07] MEDS: THIAMINE HCL 500 MG in NS 100 ML IV SCH (17:45)
[2018-06-07] MEDS: IPRATROPIUM/ALBUTEROL 3 ML DEYVIAL IH SCH ×2 (18:05→20:42)
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
[2018-06-07] MEDS: LORazepam 2 MG/ML INJ IVP SCH (18:14)
[2018-06-07] MEDS: DEXMEDETOMIDINE HCL 400 MCG in NS 100 ML IV SCH (18:50)
[2018-06-07] MEDS: NICOTINE 21 MG/24 HR PATCH TD SCH (18:55)
[2018-06-07] MEDS: FAMOTIDINE 20 MG/NACL 50 ML IV SCH (21:05)
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
[2018-06-08] MEDS: LORazepam 2 MG/ML INJ IVP SCH ×6 (00:03→17:52)
[2018-06-08] MEDS: LORazepam 2 MG/ML INJ IVP PRN ×9 (01:08→23:17)
[2018-06-08] MEDS: IPRATROPIUM/ALBUTEROL 3 ML DEYVIAL IH SCH (05:32)
[2018-06-08] MEDS: DEXMEDETOMIDINE HCL 400 MCG in NS 100 ML IV SCH ×4 (06:41→20:11)
[2018-06-08] MEDS: FOLIC ACID 1 MG TAB PO SCH (07:31)
[2018-06-08] MEDS: FAMOTIDINE 20 MG/NACL 50 ML IV SCH (07:32)
[2018-06-08] MEDS: NICOTINE 21 MG/24 HR PATCH TD SCH (07:32)
[2018-06-08] MEDS ORDERED: THIAMINE HCL 500 MG in NS 100 ML IV SCH (09:00)
[2018-06-08] MEDS: MULTIVITAMINS 1 EACH TAB PO SCH (09:26)
--- NOTE | 2018-06-08 09:39 | ASMTCASEMG ---
Living Arrangements What is your living Answers: Alone arrangement? Who do you live with? Type Of Residence What kind of residence do Answers: Apartment you live in? Discharge Plan Comments Coordination Status Comments Notes: Patient is a 32yo single male with PMH of ETOH abuse and dependence as well as withdrawal, who is being admitted for the following: severe ETOH withdrawal, ETOH use disorder, seizure, chronic neuropathic pain, and anxiety/PTSD. OT/PT evals have been ordered for the patient. Patient lists his father, Roshan in [place], [place] as his next of kin. 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 D/C plan TBD. CM will follow. Date Signed: 06/08/2018 09:38 AM Electronically Signed By:Corry Schmidt LCSW
[2018-06-08] MEDS: THIAMINE HCL 500 MG in NS 100 ML IV SCH (10:13)
[2018-06-08] MEDS ORDERED: NON-FORMULARY NEW DRUG (Gabapentin [Gabapentin] 600 MG) PO PRN (10:38)
[2018-06-08] MEDS ORDERED: IPRATROPIUM/ALBUTEROL 3 ML DEYVIAL IH PRN (11:00)
[2018-06-08] MEDS: PREGABALIN 150 MG CAP PO SCH ×3 (12:46→23:04)
--- NOTE | 2018-06-08 12:52 | HOSPPROG ---
Hospitalist Progress Note Assessment/Plan: 32 yo M with PMH of etoh abuse and dependence as well as withdrawal admitted with alcohol withdrawal, severe # severe alcohol withdrawal: - Last drink on morning of admission shortly after seizure, - Started on precedex gtt given limited response to ativan and patient being high risk for severe withdrawals, will continue, wean as tolerated - Continue scheduled ativan, mvi/thiamine/folate. # alcohol use disorder, severe: - Patient very motivated to quit drinking but very limited resources in terms of getting into treatment and repeatedly failing his outpatient attempts to quit on his own, - Recommend checking with the [facility] for [facility] benefits, CM to be involved and hopefully can assist with this plan. # seizure d/o: all seems to be in the setting of alcohol withdrawal, did have recurrent seizure prior to admission, as above on ciwa # chronic neuropathic pain: 2/2 his combat injuries, will continue lyrica and gabapentin # anxiety/PTSD: likely underlying his alcohol disorder, he is followed by a therapist and recommend that he continue this after discharge Dispo: Pending clinical course Subjective: Patient with no complaints this AM Objective: Vital Signs Temp Pulse Resp BP Pulse Ox 36.6 C 79 21 H 140/84 H 93 06/08/18 07:10 06/08/18 11:44 06/08/18 11:44 06/08/18 11:44 06/08/18 11:44 Laboratory Results 06/08/18 06:40 06/08/18 05:23 06/07/18 06/08/18 06/09/18 05:59 05:59 05:59 Intake Total 5206 Output Total 201 Balance 5005 - Physical Exam Constitutional: chronically ill appearing, unkempt Eyes: PERRL Ears, Nose, Mouth, Throat: moist mucous membranes Cardiovascular: regular rate and rhythym Respiratory: no respiratory distress Gastrointestinal: soft, non-tender abdomen Neurologic: AAOx3 Psychiatric: interacting appropriately ICD10 Worksheet Patient Problems: Problems Problem Status Onset Abdominal pain Acute Acute bronchitis Acute Alcohol dependence Acute Alcohol withdrawal Acute Anxiety Acute Bronchitis Acute Chest pain Acute Gastritis Acute Seizure Acute Vomiting Acute
[2018-06-08] MEDS: GABAPENTIN 300 MG CAP PO PRN (13:18)
[2018-06-08] MEDS: ONDANSETRON DISINTEGRATING 4 MG TAB PO PRN (14:04)
[2018-06-08] MEDS: NS 1,000 ML IV SCH (18:04)
[2018-06-08] MEDS: FAMOTIDINE 20 MG TAB PO SCH (20:12)
[2018-06-08] MEDS: traZODone 100 MG TAB PO SCH (20:12)
--- NOTE | 2018-06-08 20:47 | PDMN ---
Medical Necessity Medical necessity: Pt meets IP criteria as of 06/08/18 per and [facility] M-595 ( Substance use disorders); los > 2 mn for ongoing tx and management of severe alcohol withdrawal (CIWA 19) with seizures; requiring precede gtt, ICU care, therapies, and case management.
[2018-06-09] MEDS: NS 1,000 ML IV SCH (00:11)
[2018-06-09] MEDS: DEXMEDETOMIDINE HCL 400 MCG in NS 100 ML IV SCH ×2 (00:11→02:58)
[2018-06-09] MEDS: LORazepam 2 MG/ML INJ IVP SCH ×2 (00:34→05:48)
[2018-06-09] MEDS: LORazepam 2 MG/ML INJ IVP PRN (02:58)
[2018-06-09] MEDS: THIAMINE HCL 500 MG in NS 100 ML IV SCH (09:17)
[2018-06-09] MEDS: FAMOTIDINE 20 MG TAB PO SCH ×2 (09:18→21:30)
[2018-06-09] MEDS: FOLIC ACID 1 MG TAB PO SCH (09:18)
[2018-06-09] MEDS: NICOTINE 21 MG/24 HR PATCH TD SCH (09:18)
[2018-06-09] MEDS: PREGABALIN 150 MG CAP PO SCH ×3 (09:18→21:30)
[2018-06-09] MEDS: MULTIVITAMINS 1 EACH TAB PO SCH (09:18)
[2018-06-09] MEDS ORDERED: LORazepam 2 MG/ML INJ IVP PRN (11:08)
[2018-06-09] MEDS: ACETAMINOPHEN 325 MG TAB PO PRN (12:11)
[2018-06-09] MEDS: chlordiazePOXIDE 25 MG CAP PO SCH ×3 (12:11→21:30)
--- NOTE | 2018-06-09 12:52 | HOSPPROG ---
Hospitalist Progress Note Assessment/Plan: 32 yo M with PMH of etoh abuse and dependence as well as withdrawal admitted with alcohol withdrawal, severe # severe alcohol withdrawal: - Last drink on morning of admission shortly after seizure, Drinks 2 pints Whisky daily - Started on precedex gtt given limited response to ativan and patient being high risk for severe withdrawals - mvi/thiamine/folate. # alcohol use disorder, severe: - Patient very motivated to quit drinking but very limited resources in terms of getting into treatment and repeatedly failing his outpatient attempts to quit on his own, - Recommend checking with the [facility] for his benefits, CM to be involved and hopefully can assist with this plan. # seizure d/o: all seems to be in the setting of alcohol withdrawal, did have recurrent seizure prior to admission, as above on ciwa # chronic neuropathic pain: 2/2 his combat injuries, will continue lyrica and gabapentin # anxiety/PTSD: likely underlying his alcohol disorder, he is followed by a therapist and recommend that he continue this after discharge -2 tours in [place] Plan: He has weaned off the Precedex Drip currently but still in WD. There has been some concern by nursing that the pt has been requesting benzo's inappropriately and using the CIWA protocol to score higher than actual symptoms (he has no current resting tremor, tachycardia, diaphoresis, not encephalopathic, not anxious currently). We will attempt to keep him off the Precedex drip. He is taking PO. Start Librium 50mg TID. He may need more and this was discussed with the nurse who will provide an update this afternoon. For now cont off Precedex drip. Cont Ativan PRN. Can stop IVF f/u op setting/[facility] for [facility] once ready. CM looking into options cont SDU level of care for now total critical care time in a pt who is intermittently on Precedex and still on significant WD is 35 mins. D/W ICU staff. Subjective: no cp or sob. no current hand tremor. no tachycardia. reports visual hallucinations, but does not provide any detail of what he sees. Objective: Vital Signs Temp Pulse Resp BP Pulse Ox 36.4 C 92 16 113/76 95 06/09/18 12:00 06/09/18 12:00 06/09/18 12:00 06/09/18 12:00 06/09/18 12:00 Laboratory Results 06/09/18 05:45 06/09/18 05:45 06/08/18 06/09/18 06/10/18 05:59 05:59 05:59 Intake Total 5421 790 Balance 5421 790 - Physical Exam Constitutional: no apparent distress Eyes: PERRL Ears, Nose, Mouth, Throat: moist mucous membranes Cardiovascular: regular rate and rhythym, edema (trace) Respiratory: no rales or rhonchi, clear to auscultation Gastrointestinal: normoactive bowel sounds Skin: warm Neurologic: AAOx3 Psychiatric: interacting appropriately, not anxious, No encephalopathic, No anxious, No agitated Lymph, Heme, Immunologic: lymphadenopathy ICD10 Worksheet Patient Problems: Problems Problem Status Onset Abdominal pain Acute Acute bronchitis Acute Alcohol dependence Acute Alcohol withdrawal Acute Anxiety Acute Bronchitis Acute Chest pain Acute Gastritis Acute Seizure Acute Vomiting Acute
[2018-06-09] MEDS: GABAPENTIN 300 MG CAP PO PRN (13:18)
[2018-06-09] MEDS: CYCLOBENZAPRINE 10 MG TAB PO PRN (13:18)
[2018-06-09] MEDS: LORazepam 0.5 MG TAB PO PRN ×3 (15:40→21:30)
[2018-06-09] MEDS: ONDANSETRON DISINTEGRATING 4 MG TAB PO PRN (16:14)
[2018-06-09] MEDS: HYDROCODONE/APAP 5/325 TAB PO PRN ×3 (16:26→22:05)
[2018-06-09 16:45] LABS: INR 1.02 (0.83-1.16); PROTIME(PATIENT) 13.6 SEC (12.0-15.0)
[2018-06-09] MEDS ORDERED: diphenhydrAMINE 25 MG CAP PO ONE (17:45)
[2018-06-09] MEDS: traZODone 100 MG TAB PO SCH (22:05)
[2018-06-10] MEDS: CYCLOBENZAPRINE 10 MG TAB PO PRN ×3 (00:17→22:47)
[2018-06-10] MEDS: DIPHENHYDRAMINE CREAM TP PRN ×3 (00:38→12:28)
[2018-06-10] MEDS: LORazepam 0.5 MG TAB PO PRN (00:48)
[2018-06-10] MEDS: LORazepam 1 MG TAB PO PRN ×5 (05:48→21:23)
[2018-06-10] MEDS: HYDROCODONE/APAP 5/325 TAB PO PRN ×4 (05:48→18:51)
[2018-06-10 06:05] LABS: PLATELET COUNT 191 10^3/uL (150-400)
[2018-06-10] MEDS: NICOTINE 21 MG/24 HR PATCH TD SCH (08:13)
[2018-06-10] MEDS: MULTIVITAMINS 1 EACH TAB PO SCH (08:14)
[2018-06-10] MEDS: GABAPENTIN 300 MG CAP PO PRN ×2 (08:14→16:18)
[2018-06-10] MEDS: FAMOTIDINE 20 MG TAB PO SCH ×2 (08:14→21:08)
[2018-06-10] MEDS: PREGABALIN 150 MG CAP PO SCH ×3 (08:14→21:08)
[2018-06-10] MEDS: chlordiazePOXIDE 25 MG CAP PO SCH ×3 (08:15→21:08)
[2018-06-10] MEDS: FOLIC ACID 1 MG TAB PO SCH (08:17)
[2018-06-10] MEDS: ALBUTEROL 60 PUFFS/8 GM MDI IH PRN (08:40)
[2018-06-10] MEDS ORDERED: FUROSEMIDE 20 MG TAB PO ONE (11:33)
--- NOTE | 2018-06-10 11:33 | HOSPPROG ---
Hospitalist Progress Note Assessment/Plan: 32 yo M with PMH of etoh abuse and dependence as well as withdrawal admitted with alcohol withdrawal, severe # severe alcohol withdrawal: - Last drink on morning of admission shortly after seizure, Drinks 2 pints Whisky daily - Started on precedex gtt, now off - Librium scheduled - Ativan PRN - mvi/thiamine/folate. # alcohol use disorder, severe: - Patient very motivated to quit drinking but very limited resources in terms of getting into treatment and repeatedly failing his outpatient attempts to quit on his own, - Recommend checking with the [facility] for his benefits, CM to be involved and hopefully can assist with this plan. # seizure d/o: all seems to be in the setting of alcohol withdrawal, did have recurrent seizure prior to admission, as above on ciwa # chronic neuropathic pain: 2/2 his combat injuries, will continue lyrica and gabapentin # anxiety/PTSD: likely underlying his alcohol disorder, he is followed by a therapist and recommend that he continue this after discharge -2 tours in [place] #Insomnia -requesting Wanda, will order #Pedal Edema -Lasix 20mg today x 1 Plan: -ok to transfer out of the ICU -cont Librium/Ativan, no changes today, decrease tomorrow -PRN ambien -f/u op setting/[facility] once ready. CM looking into options Subjective: no cp or sob. no n/v. still with some wd symptoms Objective: Vital Signs Temp Pulse Resp BP Pulse Ox 36.4 C 104 H 18 138/89 H 97 06/10/18 08:00 06/10/18 08:00 06/10/18 08:00 06/10/18 08:00 06/10/18 08:00 Laboratory Results 06/10/18 05:30 06/10/18 05:30 06/09/18 06/10/18 06/11/18 05:59 05:59 05:59 Intake Total 5421 3602 Output Total 1250 Balance 5421 2352 PT 13.6 SEC (12.0-15.0) 06/09/18 15:44 INR 1.02 (0.83-1.16) 06/09/18 15:44 - Physical Exam Constitutional: no apparent distress Eyes: PERRL Ears, Nose, Mouth, Throat: moist mucous membranes, hearing normal Cardiovascular: regular rate and rhythym, edema (trace) Respiratory: no respiratory distress, no rales or rhonchi, clear to auscultation Skin: warm Musculoskeletal: full muscle strength Neurologic: AAOx3 Psychiatric: interacting appropriately, anxious Lymph, Heme, Immunologic: No petechiae ICD10 Worksheet Patient Problems: Problems Problem Status Onset Abdominal pain Acute Acute bronchitis Acute Alcohol dependence Acute Alcohol withdrawal Acute Anxiety Acute Bronchitis Acute Chest pain Acute Gastritis Acute Seizure Acute Vomiting Acute
[2018-06-10] MEDS: THIAMINE HCL 100 MG TAB PO SCH (18:22)
[2018-06-10] MEDS ORDERED: MAGNESIUM HYDROXIDE 30 ML UDCUP PO PRN (21:01)
[2018-06-10] MEDS ORDERED: POLYETHYLENE GLYCOL 3350 17 GM PKT PO PRN (21:01)
[2018-06-10] MEDS ORDERED: BISACODYL 10 MG SUPP PR PRN (21:01)
[2018-06-10] MEDS: ZOLPIDEM TARTRATE 5 MG TAB PO PRN (21:08)
[2018-06-10] MEDS: traZODone 100 MG TAB PO SCH (22:47)
[2018-06-11] MEDS: LORazepam 1 MG TAB PO PRN ×5 (03:14→20:29)
[2018-06-11] MEDS: GABAPENTIN 300 MG CAP PO PRN ×3 (03:14→16:09)
[2018-06-11] MEDS: HYDROCODONE/APAP 5/325 TAB PO PRN ×5 (03:14→22:45)
[2018-06-11] MEDS: chlordiazePOXIDE 25 MG CAP PO SCH ×4 (09:11→20:30)
[2018-06-11] MEDS: SENNOSIDES/DOCUSATE SODIUM TAB PO SCH ×2 (09:11→20:29)
[2018-06-11] MEDS: THIAMINE HCL 100 MG TAB PO SCH (09:11)
[2018-06-11] MEDS: NICOTINE 21 MG/24 HR PATCH TD SCH (09:11)
[2018-06-11] MEDS: MULTIVITAMINS 1 EACH TAB PO SCH (09:11)
[2018-06-11] MEDS: FOLIC ACID 1 MG TAB PO SCH (09:11)
[2018-06-11] MEDS: FAMOTIDINE 20 MG TAB PO SCH ×2 (09:11→20:29)
[2018-06-11] MEDS: PREGABALIN 150 MG CAP PO SCH ×3 (09:12→22:58)
[2018-06-11] MEDS ORDERED: FUROSEMIDE 20 MG/2 ML VIAL IVP ONE (09:43)
--- NOTE | 2018-06-11 11:36 | HOSPPROG ---
Hospitalist Progress Note Assessment/Plan: 32 yo M with PMH of etoh abuse and dependence as well as withdrawal admitted with alcohol withdrawal, severe # severe alcohol withdrawal: - Last drink on morning of admission shortly after seizure, Drinks 2 pints Whisky daily - Started on precedex gtt, now off - Librium scheduled. Will decreased Librium to 25mg QID. Would consider decreasing further to 25mg TID tomorrow and may PRN the next day - cont Ativan PRN. Has not required any IV in several days - mvi/thiamine/folate. # alcohol use disorder, severe: - Patient very motivated to quit drinking but very limited resources in terms of getting into treatment and repeatedly failing his outpatient attempts to quit on his own, - Recommend checking with the [facility] for his benefits, CM to be involved and hopefully can assist with this plan. - Medicaid is meeting with him today # seizure d/o: all seems to be in the setting of alcohol withdrawal, did have recurrent seizure prior to admission, as above on ciwa # chronic neuropathic pain: 2/2 his combat injuries, will continue lyrica and gabapentin # anxiety/PTSD: likely underlying his alcohol disorder, he is followed by a therapist and recommend that he continue this after discharge -2 tours in [place] #Insomnia -cont Ambien #Pedal Edema -repeat Lasix today #Cough, Hx of tobacco use, malaise -Lungs with exp wheeze -Obtain CXR to evaluate -start Prednisone burst -schedule nebs -resp panel SCD's Dispo: cont inpatient/med surg Subjective: no cp or sob. no n/v. + cough. afebrile Objective: Vital Signs Temp Pulse Resp BP Pulse Ox 36.5 C 97 16 128/79 H 100 06/11/18 08:00 06/11/18 08:00 06/11/18 08:00 06/11/18 08:00 06/11/18 08:00 Laboratory Results 06/10/18 05:30 06/10/18 05:30 06/10/18 06/11/18 06/12/18 05:59 05:59 05:59 Intake Total 3602 800 Output Total 1250 2175 300 Balance 2352 -1375 -300 PT 13.6 SEC (12.0-15.0) 06/09/18 15:44 INR 1.02 (0.83-1.16) 06/09/18 15:44 - Physical Exam Constitutional: no apparent distress Eyes: PERRL Ears, Nose, Mouth, Throat: moist mucous membranes Cardiovascular: regular rate and rhythym Respiratory: no respiratory distress, expiratory wheeze, No rhonchi Gastrointestinal: normoactive bowel sounds Skin: warm Neurologic: AAOx3 Psychiatric: interacting appropriately, not anxious, not encephalopathic Lymph, Heme, Immunologic: No petechiae ICD10 Worksheet Patient Problems: Problems Problem Status Onset Abdominal pain Acute Acute bronchitis Acute Alcohol dependence Acute Alcohol withdrawal Acute Anxiety Acute Bronchitis Acute Chest pain Acute Gastritis Acute Seizure Acute Vomiting Acute
[2018-06-11] MEDS: predniSONE 20 MG TAB PO SCH (12:11)
[2018-06-11] MEDS: ALBUTEROL 3 ML DEYVIAL IH SCH ×3 (12:15→21:00)
[2018-06-11] MEDS ORDERED: FUROSEMIDE 40 MG TAB PO ONE (12:45)
[2018-06-11] MEDS: LACTULOSE 20 GM/30 ML UDCUP PO PRN (22:45)
[2018-06-11] MEDS: CYCLOBENZAPRINE 10 MG TAB PO PRN (22:46)
[2018-06-11] MEDS: BENZONATATE 100 MG CAP PO PRN (22:46)
[2018-06-12] MEDS: LORazepam 1 MG TAB PO PRN ×7 (00:12→22:46)
[2018-06-12] MEDS: traZODone 100 MG TAB PO SCH ×2 (00:13→22:47)
[2018-06-12] MEDS: ZOLPIDEM TARTRATE 5 MG TAB PO PRN ×2 (00:13→22:47)
[2018-06-12] MEDS: ALBUTEROL 3 ML DEYVIAL IH SCH ×4 (05:54→22:18)
[2018-06-12] MEDS: GABAPENTIN 300 MG CAP PO PRN ×3 (05:55→20:56)
[2018-06-12] MEDS: HYDROCODONE/APAP 5/325 TAB PO PRN (05:55)
[2018-06-12] MEDS: BENZONATATE 100 MG CAP PO PRN ×2 (05:56→22:47)
[2018-06-12] MEDS: chlordiazePOXIDE 25 MG CAP PO SCH ×4 (05:56→20:56)
[2018-06-12] MEDS: CYCLOBENZAPRINE 10 MG TAB PO PRN ×3 (05:56→20:56)
[2018-06-12] MEDS ORDERED: chlordiazePOXIDE 25 MG CAP PO PRN (08:32)
[2018-06-12] MEDS: predniSONE 20 MG TAB PO SCH (08:44)
[2018-06-12] MEDS: MULTIVITAMINS 1 EACH TAB PO SCH (08:44)
[2018-06-12] MEDS: FAMOTIDINE 20 MG TAB PO SCH ×2 (08:44→20:56)
[2018-06-12] MEDS: FOLIC ACID 1 MG TAB PO SCH (08:44)
[2018-06-12] MEDS: THIAMINE HCL 100 MG TAB PO SCH (08:45)
[2018-06-12] MEDS: SENNOSIDES/DOCUSATE SODIUM TAB PO SCH ×2 (08:45→20:56)
[2018-06-12] MEDS ORDERED: chlordiazePOXIDE 25 MG CAP PO SCH (09:00)
[2018-06-12] MEDS: NICOTINE 21 MG/24 HR PATCH TD SCH ×2 (09:14→21:01)
[2018-06-12] MEDS: PREGABALIN 150 MG CAP PO SCH ×3 (09:42→22:47)
[2018-06-12] MEDS: OXYCODONE/APAP 5/325 TAB PO PRN ×4 (09:42→22:49)
--- NOTE | 2018-06-12 11:40 | HOSPPROG ---
Hospitalist Progress Note Assessment/Plan: 32 yo M with PMH of etoh abuse and dependence as well as withdrawal admitted with alcohol withdrawal, severe # severe alcohol withdrawal: - Last drink on morning of admission shortly after seizure, Drinks 2 pints Whisky daily - Started on precedex gtt, now off - Librium scheduled. Secreased Librium to 25mg QID. Would consider decreasing further to 25mg TID tomorrow and may PRN the next day - cont Ativan PRN. Has not required any IV in several days - mvi/thiamine/folate. # alcohol use disorder, severe: - Patient very motivated to quit drinking but very limited resources in terms of getting into treatment and repeatedly failing his outpatient attempts to quit on his own, - Recommend checking with the [facility] for his benefits, CM to be involved and hopefully can assist with this plan. - Medicaid is meeting with him today # seizure d/o: all seems to be in the setting of alcohol withdrawal, did have recurrent seizure prior to admission, as above on ciwa # chronic neuropathic pain: 2/2 his combat injuries, will continue lyrica and gabapentin # anxiety/PTSD: likely underlying his alcohol disorder, he is followed by a therapist and recommend that he continue this after discharge -2 tours in [place] #Insomnia -cont Ambien #Pedal Edema -Will hold on further Lasix for now, continue to monitor #URI -Lungs with exp wheeze per MD yesterday -CXR done 06/11 which showed mild bronchitis, no PNA -Resp PCR performed which was positive for Coronavirus -Started on Prednisone 40 mg qd yesterday, will d/c -schedule nebs -Supportive management SCD's Dispo: cont inpatient/med surg Subjective: Patient reports increased tremulousness this AM Objective: Vital Signs Temp Pulse Resp BP Pulse Ox 36.9 C 95 14 130/100 H 97 06/12/18 07:43 06/12/18 11:17 06/12/18 11:17 06/12/18 07:43 06/12/18 11:17 Microbiology 06/11/18 12:30 Respiratory Panel (PCR) - Final Nasal, Sinus - Swab Coronovirus Oc43 Detected Laboratory Results 06/10/18 05:30 06/10/18 05:30 06/11/18 06/12/18 06/13/18 05:59 05:59 05:59 Intake Total 800 400 Output Total 2175 1250 Balance -1375 -850 PT 13.6 SEC (12.0-15.0) 06/09/18 15:44 INR 1.02 (0.83-1.16) 06/09/18 15:44 - Physical Exam Constitutional: chronically ill appearing, unkempt Eyes: PERRL Ears, Nose, Mouth, Throat: moist mucous membranes Cardiovascular: regular rate and rhythym Respiratory: no respiratory distress Gastrointestinal: soft, non-tender abdomen Skin: warm Neurologic: AAOx3 Psychiatric: interacting appropriately ICD10 Worksheet Patient Problems: Problems Problem Status Onset Abdominal pain Acute Acute bronchitis Acute Alcohol dependence Acute Alcohol withdrawal Acute Anxiety Acute Bronchitis Acute Chest pain Acute Gastritis Acute Seizure Acute Vomiting Acute
[2018-06-12] MEDS ORDERED: LORazepam 2 MG/ML INJ IVP SCH (17:39)
[2018-06-13] MEDS: LORazepam 1 MG TAB PO PRN ×7 (01:56→22:12)
[2018-06-13] MEDS: CYCLOBENZAPRINE 10 MG TAB PO PRN ×3 (05:33→23:20)
[2018-06-13] MEDS: BENZONATATE 100 MG CAP PO PRN (05:33)
[2018-06-13] MEDS: chlordiazePOXIDE 25 MG CAP PO SCH ×4 (05:35→22:13)
[2018-06-13] MEDS: GABAPENTIN 300 MG CAP PO PRN ×3 (05:35→22:14)
[2018-06-13] MEDS: OXYCODONE/APAP 5/325 TAB PO PRN ×2 (05:39→10:10)
[2018-06-13] MEDS: ALBUTEROL 3 ML DEYVIAL IH SCH ×4 (05:43→22:07)
[2018-06-13] MEDS: THIAMINE HCL 100 MG TAB PO SCH (08:38)
[2018-06-13] MEDS: LACTULOSE 20 GM/30 ML UDCUP PO PRN (08:38)
[2018-06-13] MEDS: PREGABALIN 150 MG CAP PO SCH ×3 (08:38→22:14)
[2018-06-13] MEDS: NICOTINE 21 MG/24 HR PATCH TD SCH (08:38)
[2018-06-13] MEDS: MULTIVITAMINS 1 EACH TAB PO SCH (08:38)
[2018-06-13] MEDS: FAMOTIDINE 20 MG TAB PO SCH ×2 (08:38→22:14)
[2018-06-13] MEDS: FOLIC ACID 1 MG TAB PO SCH (08:38)
[2018-06-13] MEDS: SENNOSIDES/DOCUSATE SODIUM TAB PO SCH (08:38)
[2018-06-13] MEDS ORDERED: oxyCODONE IR 5 MG TAB PO PRN (12:05)
--- NOTE | 2018-06-13 14:47 | HOSPPROG ---
Hospitalist Progress Note Assessment/Plan: 32 yo M with PMH of etoh abuse and dependence as well as withdrawal admitted with alcohol withdrawal, severe # severe alcohol withdrawal: - Last drink on morning of admission shortly after seizure, Drinks 2 pints Whisky daily - Started on precedex gtt, now off - Librium scheduled. Decreased Librium to 25mg QID. Would consider decreasing further to 25mg TID tomorrow and may PRN the next day - cont Ativan PRN. Has not required any IV in several days - mvi/thiamine/folate. # alcohol use disorder, severe: - Patient very motivated to quit drinking but very limited resources in terms of getting into treatment and repeatedly failing his outpatient attempts to quit on his own, - Recommend checking with the [facility] for his benefits, CM involved, to call VA tomorrow # seizure d/o: all seems to be in the setting of alcohol withdrawal, did have recurrent seizure prior to admission, as above on ciwa # chronic neuropathic pain: 2/2 his combat injuries, will continue lyrica and gabapentin # anxiety/PTSD: likely underlying his alcohol disorder, he is followed by a therapist and recommend that he continue this after discharge -2 tours in [place] #Insomnia -cont Ambien #Pedal Edema -Will hold on further Lasix for now, continue to monitor #URI -Lungs with exp wheeze per MD yesterday -CXR done 06/11 which showed mild bronchitis, no PNA -Resp PCR performed which was positive for Coronavirus -Started on Prednisone 40 mg qd, will d/c -scheduled nebs -Supportive management SCD's Dispo: cont inpatient/med surgo Subjective: Patient visibly with tremors this AM Objective: Vital Signs Temp Pulse Resp BP Pulse Ox 36.5 C 105 H 20 116/93 H 95 06/13/18 07:57 06/13/18 08:57 06/13/18 08:57 06/13/18 07:57 06/13/18 08:57 Laboratory Results 06/10/18 05:30 06/10/18 05:30 06/12/18 06/13/18 06/14/18 05:59 05:59 05:59 Intake Total 400 1520 Output Total 1250 300 Balance -850 1220 PT 13.6 SEC (12.0-15.0) 06/09/18 15:44 INR 1.02 (0.83-1.16) 06/09/18 15:44 - Physical Exam Constitutional: chronically ill appearing, unkempt Eyes: PERRL Ears, Nose, Mouth, Throat: moist mucous membranes Cardiovascular: regular rate and rhythym Respiratory: no respiratory distress Gastrointestinal: soft, non-tender abdomen Skin: warm Musculoskeletal: full muscle strength Neurologic: AAOx3 Psychiatric: anxious ICD10 Worksheet Patient Problems: Problems Problem Status Onset Abdominal pain Acute Acute bronchitis Acute Alcohol dependence Acute Alcohol withdrawal Acute Anxiety Acute Bronchitis Acute Chest pain Acute Gastritis Acute Seizure Acute Vomiting Acute
[2018-06-13] MEDS: oxyCODONE IR 5 MG TAB PO PRN ×3 (15:00→23:19)
--- NOTE | 2018-06-13 17:33 | ASMTCMCOM ---
CM Note CM Note Notes: Reviewed chart, spoke with Dr. Falocn. Per MD, pt has severe alcohol withdrawal secondary to severe alcohol abuse disorder. Pt also has a URI, insomnia and pedal edema. Per prior CM notes, a [facility] referral was sent last week. Pt requesting help for alcohol abuse. Dr. Falcon feels the pt would benefit from a 30 day in-patient treatment program. CM to call [facility] on Thursday06/14/17 for assistance with treatment placement. [facility] was previously mentioned as another option. CM will continue to follow. Discharge Plan: To be determined Date Signed: 06/13/2018 05:32 PM Electronically Signed By:Melba Vang RN
[2018-06-13] MEDS: ZOLPIDEM TARTRATE 5 MG TAB PO PRN (22:14)
[2018-06-13] MEDS: traZODone 100 MG TAB PO SCH (23:20)
[2018-06-14] MEDS: SENNOSIDES/DOCUSATE SODIUM TAB PO SCH ×3 (00:49→21:15)
[2018-06-14] MEDS: LORazepam 1 MG TAB PO PRN ×6 (04:32→21:28)
[2018-06-14] MEDS: chlordiazePOXIDE 25 MG CAP PO SCH ×4 (04:51→21:14)
[2018-06-14] MEDS: GABAPENTIN 300 MG CAP PO PRN ×2 (04:55→15:13)
[2018-06-14] MEDS: oxyCODONE IR 5 MG TAB PO PRN ×4 (04:56→18:41)
[2018-06-14] MEDS: ALBUTEROL 3 ML DEYVIAL IH SCH ×4 (05:32→21:35)
[2018-06-14] MEDS: NICOTINE 21 MG/24 HR PATCH TD SCH (07:54)
[2018-06-14] MEDS: CYCLOBENZAPRINE 10 MG TAB PO PRN ×2 (07:55→23:06)
[2018-06-14] MEDS: FAMOTIDINE 20 MG TAB PO SCH ×2 (07:55→21:14)
[2018-06-14] MEDS: THIAMINE HCL 100 MG TAB PO SCH (07:55)
[2018-06-14] MEDS: MULTIVITAMINS 1 EACH TAB PO SCH (07:55)
[2018-06-14] MEDS: PREGABALIN 150 MG CAP PO SCH ×3 (07:55→21:14)
[2018-06-14] MEDS: FOLIC ACID 1 MG TAB PO SCH (07:55)
--- NOTE | 2018-06-14 09:52 | HOSPPROG ---
Hospitalist Progress Note Assessment/Plan: 32 yo M with PMH of etoh abuse and dependence as well as withdrawal admitted with alcohol withdrawal, severe # severe alcohol withdrawal: - Last drink on morning of admission shortly after seizure, Drinks 2 pints Whisky daily - Started on precedex gtt on admission, now off - Librium scheduled. Decreased Librium to 25mg QID. Would consider decreasing further to 25mg TID tomorrow and may PRN the next day - cont Ativan PRN, will decrease dose from 4-6 mg to 2-4 mg tomorrow. Has not required any IV in several days - mvi/thiamine/folate. #URI -Lung exam worsened this AM with diffuse rhonchi -CXR done 06/11 which showed mild bronchitis, no PNA -Resp PCR performed which was positive for Coronavirus -Continue prednisone today, previously discontinued -CXR performed this AM, showing L basilar consolidation, starting Levaquin 750 mg qd today -scheduled nebs -Supportive management # alcohol use disorder, severe: - Patient very motivated to quit drinking but very limited resources in terms of getting into treatment and repeatedly failing his outpatient attempts to quit on his own, - Recommend checking with the [facility] for his benefits, CM involved, to call VA today # seizure d/o: all seems to be in the setting of alcohol withdrawal, did have recurrent seizure prior to admission, as above on ciwa # chronic neuropathic pain: 2/2 his combat injuries, will continue lyrica and gabapentin # anxiety/PTSD: likely underlying his alcohol disorder, he is followed by a therapist and recommend that he continue this after discharge -2 tours in [place] #Insomnia -cont Ambien #Pedal Edema -Will give Lasix 20 mg PO today, continue to monitor SCD's Dispo: cont inpatient/med surgo Subjective: Patient reports persistent cough overnight Objective: Vital Signs Temp Pulse Resp BP Pulse Ox 36.6 C 107 H 20 135/95 H 93 06/14/18 07:50 06/14/18 08:40 06/14/18 08:40 06/14/18 07:50 06/14/18 08:40 Laboratory Results 06/10/18 05:30 06/10/18 05:30 06/13/18 06/14/18 06/15/18 05:59 05:59 05:59 Intake Total 1520 1350 Output Total 300 4800 Balance 1220 -3450 PT 13.6 SEC (12.0-15.0) 06/09/18 15:44 INR 1.02 (0.83-1.16) 06/09/18 15:44 - Physical Exam Constitutional: chronically ill appearing, unkempt Eyes: PERRL Ears, Nose, Mouth, Throat: dry mucous membranes Cardiovascular: regular rate and rhythym Respiratory: expiratory wheeze, bronchial breath sounds Gastrointestinal: soft, non-tender abdomen Skin: warm Musculoskeletal: generalized weakness Neurologic: AAOx3 Psychiatric: anxious ICD10 Worksheet Patient Problems: Problems Problem Status Onset Abdominal pain Acute Acute bronchitis Acute Alcohol dependence Acute Alcohol withdrawal Acute Anxiety Acute Bronchitis Acute Chest pain Acute Gastritis Acute Seizure Acute Vomiting Acute
[2018-06-14] MEDS ORDERED: FUROSEMIDE 20 MG TAB PO ONE (09:56)
[2018-06-14] MEDS: predniSONE 20 MG TAB PO SCH (10:47)
[2018-06-14 13:28] LABS: PLATELET COUNT 259 10^3/uL (150-400)
--- NOTE | 2018-06-14 15:45 | ASMTCMCOM ---
CM Note CM Note Notes: CM spoke with Nanci at [facility] ([phone]) and he said that they recommend veterans use [facility] in [place] ([phone]) and that [facility] could help with transportation costs. CM spoke with pt and his father, Roshan. Pt reports he wants to go to rehab and has been "trying" for two years. CM asked what pt has tried and he said he has not been to an inpatient rehab. When asked what outpatient services he has used he did not say anything specific and turned around making political blames as to why he cannot get help. CM provided three choices of inpatient rehab facilities that pt can make a self-referral to that accept medicaid. Pt reports that the choices this promotion writer has provided are "not choices". CM provided support and education. Pt reports he will try to call the facility in [place]. CM provided pt with an extra list of facilities for his father to review, per Roshan's request. CM to follow. Plan: discharged independent once medically stable with pt going into inpatient substance abuse facility of his choice. Date Signed: 06/14/2018 03:42 PM Electronically Signed By:AMANUEL Cardona
[2018-06-14] MEDS: traZODone 100 MG TAB PO SCH (22:48)
[2018-06-14] MEDS: ZOLPIDEM TARTRATE 5 MG TAB PO PRN (23:06)
[2018-06-15] MEDS: chlordiazePOXIDE 25 MG CAP PO SCH ×4 (05:35→20:57)
[2018-06-15] MEDS: oxyCODONE IR 5 MG TAB PO PRN ×5 (05:35→22:49)
[2018-06-15] MEDS: ALBUTEROL 3 ML DEYVIAL IH SCH ×2 (05:36→10:33)
[2018-06-15] MEDS: LORazepam 1 MG TAB PO PRN ×6 (05:52→20:57)
[2018-06-15] MEDS: FAMOTIDINE 20 MG TAB PO SCH ×2 (08:26→22:48)
[2018-06-15] MEDS: SENNOSIDES/DOCUSATE SODIUM TAB PO SCH ×2 (08:27→21:10)
[2018-06-15] MEDS: MULTIVITAMINS 1 EACH TAB PO SCH (08:27)
[2018-06-15] MEDS: FOLIC ACID 1 MG TAB PO SCH (08:27)
[2018-06-15] MEDS: PREGABALIN 150 MG CAP PO SCH ×3 (08:27→22:47)
[2018-06-15] MEDS: predniSONE 20 MG TAB PO SCH (08:27)
[2018-06-15] MEDS: THIAMINE HCL 100 MG TAB PO SCH (08:27)
[2018-06-15] MEDS: NICOTINE 21 MG/24 HR PATCH TD SCH (08:28)
[2018-06-15] MEDS: ACETAMINOPHEN 325 MG TAB PO PRN (09:21)
[2018-06-15] MEDS: BENZONATATE 100 MG CAP PO PRN (09:28)
[2018-06-15] MEDS: CYCLOBENZAPRINE 10 MG TAB PO PRN ×2 (09:29→22:48)
--- NOTE | 2018-06-15 13:20 | HOSPPROG ---
Hospitalist Progress Note Assessment/Plan: 32 yo M with PMH of etoh abuse and dependence as well as withdrawal admitted with alcohol withdrawal, severe # severe alcohol withdrawal: - Last drink on morning of admission shortly after seizure, Drinks 2 pints Whisky daily - Started on precedex gtt on admission, now off - Librium scheduled. Decreased Librium to 25mg TID today. Would decrease further to 25mg TID PRN tomorrow then d/c - cont Ativan PRN, Decreased dose from 4-6 mg to 2-4 mg today. Continue to titrate down - mvi/thiamine/folate. #URI/PNA -Lung exam worsened yesterday AM with diffuse rhonchi -Resp PCR performed which was positive for Coronavirus -CXR performed on 06/14, showing L basilar consolidation, started Levaquin 750 mg qd yesterday, continue for 5-7 course pending clinical improvement -scheduled nebs, Prednisone Day 3/5 -Supportive management # alcohol use disorder, severe: - Patient very motivated to quit drinking but very limited resources in terms of getting into treatment and repeatedly failing his outpatient attempts to quit on his own, - CM consulted, not able to find resources through the [facility] # seizure d/o: all seems to be in the setting of alcohol withdrawal, did have recurrent seizure prior to admission, as above on ciwa # chronic neuropathic pain: 2/2 his combat injuries, will continue lyrica and gabapentin # anxiety/PTSD: likely underlying his alcohol disorder, he is followed by a therapist and recommend that he continue this after discharge -2 tours in [place] #Insomnia -cont Ambien #Pedal Edema -S/p intermittent doses of PO Lasix, continue to monitor SCD's Dispo: cont inpatient/med surg Subjective: Patient reports improved breathing this AM Objective: Vital Signs Temp Pulse Resp BP Pulse Ox 36.6 C 102 H 20 126/84 H 92 06/15/18 08:00 06/15/18 12:10 06/15/18 12:10 06/15/18 12:10 06/15/18 12:10 Laboratory Results 06/15/18 07:09 06/15/18 07:09 06/14/18 06/15/18 06/16/18 05:59 05:59 05:59 Intake Total 1350 800 Output Total 4800 Balance -3450 800 PT 13.6 SEC (12.0-15.0) 06/09/18 15:44 INR 1.02 (0.83-1.16) 06/09/18 15:44 - Physical Exam Constitutional: chronically ill appearing, unkempt Eyes: PERRL Ears, Nose, Mouth, Throat: moist mucous membranes Cardiovascular: regular rate and rhythym Respiratory: reduced air movement Gastrointestinal: soft, non-tender abdomen Skin: normal color Musculoskeletal: generalized weakness Neurologic: AAOx3 Psychiatric: interacting appropriately, anxious ICD10 Worksheet Patient Problems: Problems Problem Status Onset Abdominal pain Acute Acute bronchitis Acute Alcohol dependence Acute Alcohol withdrawal Acute Anxiety Acute Bronchitis Acute Chest pain Acute Gastritis Acute Seizure Acute Vomiting Acute
[2018-06-15] MEDS: GABAPENTIN 300 MG CAP PO PRN ×2 (15:03→22:47)
[2018-06-15] MEDS: ZOLPIDEM TARTRATE 5 MG TAB PO PRN (20:57)
[2018-06-15] MEDS: traZODone 100 MG TAB PO SCH (22:48)
[2018-06-16] MEDS: LORazepam 1 MG TAB PO PRN ×5 (06:13→19:59)
[2018-06-16] MEDS: oxyCODONE IR 5 MG TAB PO PRN ×5 (06:13→23:09)
[2018-06-16] MEDS: GABAPENTIN 300 MG CAP PO PRN ×3 (06:13→23:08)
[2018-06-16] MEDS: CYCLOBENZAPRINE 10 MG TAB PO PRN ×2 (06:21→23:09)
[2018-06-16] MEDS: NICOTINE 21 MG/24 HR PATCH TD SCH (08:34)
[2018-06-16] MEDS: FAMOTIDINE 20 MG TAB PO SCH ×2 (08:35→21:20)
[2018-06-16] MEDS: SENNOSIDES/DOCUSATE SODIUM TAB PO SCH ×2 (08:35→21:20)
[2018-06-16] MEDS: MULTIVITAMINS 1 EACH TAB PO SCH (08:35)
[2018-06-16] MEDS: predniSONE 20 MG TAB PO SCH (08:35)
[2018-06-16] MEDS: chlordiazePOXIDE 25 MG CAP PO SCH (08:35)
[2018-06-16] MEDS: PREGABALIN 150 MG CAP PO SCH ×3 (08:35→23:08)
[2018-06-16] MEDS: FOLIC ACID 1 MG TAB PO SCH (08:36)
[2018-06-16] MEDS: THIAMINE HCL 100 MG TAB PO SCH (08:36)
--- NOTE | 2018-06-16 09:38 | ASMTCMCOM ---
CM Note CM Note Notes: CM referred pt to [facility]. They met with him yesterday and will continue to follow pt in the community. Plan: likely independent once medically stable & self-referral to inpatient substance abuse facility. Date Signed: 06/16/2018 09:38 AM Electronically Signed By:AMANUEL Cardona
[2018-06-16 09:45] LABS: PLATELET COUNT 298 10^3/uL (150-400)
--- NOTE | 2018-06-16 11:36 | HOSPPROG ---
Hospitalist Progress Note Assessment/Plan: 32 yo M with PMH of etoh abuse and dependence as well as withdrawal admitted with alcohol withdrawal, severe # severe alcohol withdrawal: required ICU care with precedex, now stable on PCU , w/d should be over >1 week since arrival, but still on high dose bzds ( Librium 25 mg TID scheduled plus Ativan 2-4 mg po q3h prn) - D/C librium, wean down ativan and will d/c this tonight, instead resuming his home Valium dose (10 mg qam, 12 mg qpm), which is currently being tapered by his PCP (pharm talked with his PCP) - cont mvi/thiamine/folate. #URI/PNA - +coronavirus +/- PNA, CXR 06/14 pers reviewed/interpreted, LLL consolidation -cont Levaquin 750 mg qd, day 3/5, short course planned -check PCT -scheduled nebs, Prednisone Day 3/5 # alcohol use disorder, severe: patient very motivated to quit drinking but very limited resources in terms of getting into treatment and repeatedly failing his outpatient attempts to quit on his own, - CM consulted, not able to find [facility] # seizure d/o: likely 2/2 etoh # chronic neuropathic pain: 2/2 his combat injuries - continue lyrica and gabapentin (agreed to RF of the latter) # anxiety/PTSD: 2 tours in [place], likely underlying his alcohol disorder, he is followed by a therapist and recommend that he continue this after discharge - trial prazosin given nightmares and PTSD #Insomnia -cont Ambien, Prazosin as above #Pedal Edema -S/p intermittent doses of PO Lasix, continue to monitor #right knee pain - sounds like a sprain, nothing concerning on exam, pt requesting higher dose of oxycodone for this -one time dose of ibuprofen, declined to increase oxy -ice, PT SCD's Dispo: cont inpatient/med surg Subjective: Pt c/o right knee pain, says he sprained it on the stairs with PT, asking for increased dose of oxycodone. No fevers/chills. Taking po well. No W/D symptoms, notes he has a lot of anxiety. Objective: Vital Signs Temp Pulse Resp BP Pulse Ox 36.8 C 95 16 141/93 H 94 06/16/18 08:00 06/16/18 08:00 06/16/18 08:00 06/16/18 08:00 06/16/18 08:00 Laboratory Results 06/16/18 07:59 06/15/18 07:09 06/15/18 06/16/18 06/17/18 05:59 05:59 05:59 Intake Total 800 1240 Output Total 400 Balance 800 840 PT 13.6 SEC (12.0-15.0) 06/09/18 15:44 INR 1.02 (0.83-1.16) 06/09/18 15:44 - Physical Exam Constitutional: no apparent distress Eyes: PERRL Ears, Nose, Mouth, Throat: moist mucous membranes Cardiovascular: regular rate and rhythym Respiratory: no respiratory distress, clear to auscultation Gastrointestinal: normoactive bowel sounds, soft, non-tender abdomen Skin: warm Musculoskeletal: full muscle strength, other (right knee without edema, erythema , mild TTP left medial knee, no obvious effusion) Neurologic: AAOx3 Psychiatric: anxious ICD10 Worksheet Patient Problems: Problems Problem Status Onset Abdominal pain Acute Acute bronchitis Acute Alcohol dependence Acute Alcohol withdrawal Acute Anxiety Acute Bronchitis Acute Chest pain Acute Gastritis Acute Seizure Acute Vomiting Acute
[2018-06-16] MEDS ORDERED: KETOROLAC 15 MG/1 ML SDV IVP ONE (11:48)
[2018-06-16] MEDS ORDERED: IBUPROFEN 600 MG TAB PO ONE (12:00)
[2018-06-16] MEDS: ZOLPIDEM TARTRATE 5 MG TAB PO PRN (21:20)
[2018-06-16] MEDS: DIAZEPAM 2 MG TAB PO SCH (21:20)
[2018-06-16] MEDS: DIAZEPAM 10 MG TAB PO SCH (21:30)
[2018-06-16] MEDS: traZODone 100 MG TAB PO SCH (23:09)
[2018-06-17] MEDS: oxyCODONE IR 5 MG TAB PO PRN ×5 (06:07→22:39)
[2018-06-17] MEDS: GABAPENTIN 300 MG CAP PO PRN ×3 (06:07→22:38)
[2018-06-17] MEDS: CYCLOBENZAPRINE 10 MG TAB PO PRN ×3 (06:08→22:39)
[2018-06-17] MEDS: DIAZEPAM 10 MG TAB PO SCH ×2 (06:08→21:35)
[2018-06-17] MEDS: PREGABALIN 150 MG CAP PO SCH ×3 (09:44→22:39)
[2018-06-17] MEDS: THIAMINE HCL 100 MG TAB PO SCH (09:44)
[2018-06-17] MEDS: FOLIC ACID 1 MG TAB PO SCH (09:45)
[2018-06-17] MEDS: MULTIVITAMINS 1 EACH TAB PO SCH (09:45)
[2018-06-17] MEDS: NICOTINE 21 MG/24 HR PATCH TD SCH (09:45)
[2018-06-17] MEDS: FAMOTIDINE 20 MG TAB PO SCH ×2 (09:45→21:35)
[2018-06-17] MEDS: predniSONE 20 MG TAB PO SCH (09:45)
[2018-06-17] MEDS: SENNOSIDES/DOCUSATE SODIUM TAB PO SCH (09:46)
--- NOTE | 2018-06-17 13:13 | ASMTCMCOM ---
CM Note CM Note Notes: PT/OT are recommending SNF rehab for the patient due to his unsteadiness on his feet and his knee pain. Spoke with the patient and he does want to go and says he will stay for the 30 days required by Medicaid. Patient would like to go to a facility close to his dad so referrals are being made to [facility] and [facility].Also referring to [facility] facilities in case [facility] and [facility] do not take Medicaid. Patient was also given information on [facility] and the 2 A and D inpatient programs available to him.He can go to [place], [place] or [facility] ([phone]). He has to self refer. His transportation there is covered and he can get that monetary assistance by calling [facility] in [place] at [phone].Patient was given the number for [facility] [phone]. We will await response from the Snf facilities to see if they have any Medicaid beds. CM will follow. Date Signed: 06/17/2018 01:13 PM Electronically Signed By:Corry Schmidt LCSW
--- NOTE | 2018-06-17 13:17 | HOSPPROG ---
Hospitalist Progress Note Assessment/Plan: 32 yo M with PMH of etoh (and suspected bzd) dependence admitted with alcohol withdrawal, severe # severe alcohol withdrawal: required ICU care with precedex, now stable, w/d should be over 10 days since arrival, but still was still on very high dose bzd' s yesterday. These were d/c'd and he was restarted on his home valium regimen - cont home Valium dose (10 mg qam, 12 mg qpm), which is currently being tapered by his PCP (pharm talked with his PCP) - no escalation of bzd dosing requested - cont mvi/thiamine/folate. #URI - +coronavirus +/- PNA, CXR 06/14 pers reviewed/interpreted, not convinced there is a LLL consolidation. PCT neg. - stop atbx - cont nebs, Prednisone Day 08/20 # alcohol dependence: patient very motivated to quit drinking but very limited resources in terms of getting into treatment and repeatedly failing his outpatient attempts to quit on his own, - CM consulted, not able to find [facility] - also suspect bzd dependence, currently being weaned off bzd's by his PCP, though doesn't sound like he has been compliant with this # seizure d/o: likely 2/2 etoh and possibly bzd w/d # chronic neuropathic pain: 2/2 his combat injuries - continue lyrica and gabapentin # anxiety/PTSD: 2 tours in [place] (though accuracy of this has been questioned), likely underlying his alcohol disorder, he is followed by a therapist and recommend that he continue this after discharge - trial prazosin given nightmares and PTSD #Insomnia -cont Ambien, Prazosin as above #Pedal Edema -S/p intermittent doses of PO Lasix, continue to monitor #right knee pain - sounds like a sprain, nothing concerning on exam, pt requesting higher dose of oxycodone for this -ice, PT -declined to increase oxy, advised will need to weant this down as he won't d/c with Rx for this SCD's Dispo: cont inpatient/med surg. CM involved in dispo planning, therapy services recommending SNF. Subjective: Pt doing ok. Feels unsteady on his feet, tremulous. No CP or SOB. Less coughing and wheezing. No fevers. Objective: Vital Signs Temp Pulse Resp BP Pulse Ox 36.7 C 101 H 18 143/91 H 96 06/17/18 08:00 06/17/18 08:00 06/17/18 08:00 06/17/18 08:00 06/17/18 08:00 Laboratory Results 06/16/18 07:59 06/15/18 07:09 06/16/18 06/17/18 06/18/18 05:59 05:59 05:59 Intake Total 1240 1999 Output Total 400 Balance 840 1999 PT 13.6 SEC (12.0-15.0) 06/09/18 15:44 INR 1.02 (0.83-1.16) 06/09/18 15:44 - Physical Exam Constitutional: no apparent distress Eyes: PERRL Ears, Nose, Mouth, Throat: moist mucous membranes Cardiovascular: regular rate and rhythym Respiratory: no respiratory distress, reduced air movement, expiratory wheeze Gastrointestinal: normoactive bowel sounds, soft, non-tender abdomen Skin: warm Musculoskeletal: full muscle strength Neurologic: AAOx3 Psychiatric: interacting appropriately ICD10 Worksheet Patient Problems: Problems Problem Status Onset Abdominal pain Acute Acute bronchitis Acute Alcohol dependence Acute Alcohol withdrawal Acute Anxiety Acute Bronchitis Acute Chest pain Acute Gastritis Acute Seizure Acute Vomiting Acute
[2018-06-17] MEDS: DIAZEPAM 2 MG TAB PO SCH (21:35)
[2018-06-17] MEDS: ZOLPIDEM TARTRATE 5 MG TAB PO PRN (21:35)
[2018-06-17] MEDS: PRAZOSIN HCL 1 MG CAP PO SCH (21:35)
[2018-06-17] MEDS: traZODone 100 MG TAB PO SCH (22:39)
[2018-06-17] MEDS: ACETAMINOPHEN 325 MG TAB PO PRN (22:40)
[2018-06-18] MEDS: SENNOSIDES/DOCUSATE SODIUM TAB PO SCH ×3 (00:08→23:05)
[2018-06-18] MEDS: oxyCODONE IR 5 MG TAB PO PRN ×5 (03:38→23:56)
[2018-06-18] MEDS: CYCLOBENZAPRINE 10 MG TAB PO PRN ×3 (06:31→23:28)
[2018-06-18] MEDS: ACETAMINOPHEN 325 MG TAB PO PRN ×2 (06:31→15:36)
[2018-06-18] MEDS: GABAPENTIN 300 MG CAP PO PRN ×2 (06:31→21:35)
[2018-06-18] MEDS: predniSONE 20 MG TAB PO SCH (07:42)
[2018-06-18] MEDS: MULTIVITAMINS 1 EACH TAB PO SCH (07:42)
[2018-06-18] MEDS: FAMOTIDINE 20 MG TAB PO SCH ×2 (07:43→21:36)
[2018-06-18] MEDS: DIAZEPAM 10 MG TAB PO SCH ×2 (07:43→21:37)
[2018-06-18] MEDS: FOLIC ACID 1 MG TAB PO SCH (07:43)
[2018-06-18] MEDS: PREGABALIN 150 MG CAP PO SCH ×3 (07:52→23:28)
[2018-06-18] MEDS: THIAMINE HCL 100 MG TAB PO SCH (07:52)
[2018-06-18] MEDS: NICOTINE 21 MG/24 HR PATCH TD SCH (07:53)
[2018-06-18] MEDS ORDERED: ENOXAPARIN 40 MG/0.4 ML SYR SC SCH (09:00)
[2018-06-18] MEDS ORDERED: ENOXAPARIN 80 MG/0.8 ML SYR SC ONE (09:34)
--- NOTE | 2018-06-18 09:35 | HOSPPROG ---
Hospitalist Progress Note Assessment/Plan: 32 yo M with PMH of etoh (and suspected bzd) dependence admitted with alcohol withdrawal, severe # severe alcohol withdrawal: required ICU care with precedex, now stable, w/d should be over 11 days since arrival. High dose bzd's were d/c'd and he was restarted on his home valium regimen - cont home Valium dose (10 mg qam, 12 mg qpm), which is currently being tapered by his PCP (pharm talked with his PCP) - no escalation of bzd dosing please - cont mvi/thiamine/folate. #URI - +coronavirus +/- PNA, CXR 06/14 pers reviewed/interpreted, not convinced there is a LLL consolidation. PCT neg. - stop atbx - cont nebs, Prednisone Day 09/19, will d/c #SOB - with new DVT and noted tachycardia, will check CTA (poor study, possible sub-segmental PE) - Lovenox as below # alcohol dependence: patient very motivated to quit drinking but very limited resources - CM consulted, not able to find resources [facility] - also suspect bzd dependence, currently being weaned off bzd's by his PCP # RLE DVT: start Lovenox 1 mg/kg BID, tylenol and prn oxy for pain control, I' ve declined to increase Oxy dose (pain out of proportion to exam) and pt has exhibited drug seeking behaviors. # seizure d/o: likely 2/2 etoh and possibly bzd w/d # chronic neuropathic pain: 2/2 his combat injuries - continue lyrica and gabapentin # anxiety/PTSD: 2 tours in [place] (though accuracy of this has been questioned), likely underlying his alcohol disorder, he is followed by a therapist and recommend that he continue this after discharge - trial prazosin given nightmares and PTSD #Insomnia -cont Ambien, Prazosin as above #Pedal Edema -S/p intermittent doses of PO Lasix, continue to monitor SCD's Dispo: cont inpatient/med surg. CM involved in dispo planning, therapy services recommending SNF. Subjective: Pt feels ok, continues to c/o knee pain, no swelling or redness. He feels achey today. Endorses a little SOB, pain with deep inspiration. No fevers, not much cough. Wheezing better. Objective: Vital Signs Temp Pulse Resp BP Pulse Ox 36.7 C 96 18 122/87 H 94 06/18/18 07:03 06/18/18 07:03 06/18/18 07:03 06/18/18 07:03 06/18/18 07:03 Laboratory Results 06/16/18 07:59 06/15/18 07:09 06/17/18 06/18/18 06/19/18 05:59 05:59 05:59 Intake Total 1999 175 Balance 1999 1757 PT 13.6 SEC (12.0-15.0) 06/09/18 15:44 INR 1.02 (0.83-1.16) 06/09/18 15:44 - Physical Exam Constitutional: no apparent distress Eyes: PERRL Ears, Nose, Mouth, Throat: moist mucous membranes Cardiovascular: regular rate and rhythym Respiratory: no respiratory distress, clear to auscultation Gastrointestinal: normoactive bowel sounds, soft, non-tender abdomen Skin: warm Musculoskeletal: full muscle strength, other (RLE posterior tenderness) Neurologic: AAOx3 Psychiatric: interacting appropriately ICD10 Worksheet Patient Problems: Problems Problem Status Onset Abdominal pain Acute Acute bronchitis Acute Alcohol dependence Acute Alcohol withdrawal Acute Anxiety Acute Bronchitis Acute Chest pain Acute Gastritis Acute Seizure Acute Vomiting Acute
[2018-06-18] MEDS ORDERED: IOPAMIDOL (ISOVUE 370) 100 ML BTL IV ONE ×2 (13:40→13:57)
--- NOTE | 2018-06-18 15:29 | ASMTCMCOM ---
CM Note CM Note Notes: Attempted to contact Mayra to see if she can determine if patient will even be eligible for LTC. She was not available. Patient is most likely going to have to qualify for disability in order to get LTC. Patient is inquiring whether he can qualify for LTC through veterans and will call [facility]. [facility] and [facility] do not take Medicaid. CM will follow. Date Signed: 06/18/2018 03:28 PM Electronically Signed By:Corry Schmidt LCSW
[2018-06-18] MEDS: ZOLPIDEM TARTRATE 5 MG TAB PO PRN (21:35)
[2018-06-18] MEDS: DIAZEPAM 2 MG TAB PO SCH (21:37)
[2018-06-18] MEDS: ENOXAPARIN 120 MG/0.8 ML SYR SC SCH (21:40)
[2018-06-18] MEDS: traZODone 100 MG TAB PO SCH (23:29)
[2018-06-18] MEDS: PRAZOSIN HCL 1 MG CAP PO SCH (23:55)
[2018-06-19] MEDS: CYCLOBENZAPRINE 10 MG TAB PO PRN ×3 (06:03→23:08)
[2018-06-19] MEDS: GABAPENTIN 300 MG CAP PO PRN ×2 (06:03→13:33)
[2018-06-19] MEDS: oxyCODONE IR 5 MG TAB PO PRN ×4 (06:05→23:02)
[2018-06-19] MEDS: MULTIVITAMINS 1 EACH TAB PO SCH (09:20)
[2018-06-19] MEDS: THIAMINE HCL 100 MG TAB PO SCH (09:20)
[2018-06-19] MEDS: FOLIC ACID 1 MG TAB PO SCH (09:20)
[2018-06-19] MEDS: PREGABALIN 150 MG CAP PO SCH ×3 (09:20→23:08)
[2018-06-19] MEDS: ENOXAPARIN 120 MG/0.8 ML SYR SC SCH (09:21)
[2018-06-19] MEDS: FAMOTIDINE 20 MG TAB PO SCH ×2 (09:21→23:30)
[2018-06-19] MEDS: NICOTINE 21 MG/24 HR PATCH TD SCH (09:21)
[2018-06-19] MEDS: DIAZEPAM 10 MG TAB PO SCH ×2 (09:22→21:49)
[2018-06-19] MEDS: SENNOSIDES/DOCUSATE SODIUM TAB PO SCH ×2 (09:23→21:40)
[2018-06-19] MEDS: ACETAMINOPHEN 325 MG TAB PO PRN (12:12)
--- NOTE | 2018-06-19 13:51 | HOSPPROG ---
Hospitalist Progress Note Assessment/Plan: 32 yo M with PMH of etoh (and suspected bzd) dependence admitted with alcohol withdrawal, severe # severe alcohol withdrawal: required ICU care with precedex, now stable, w/d should be over 11 days since arrival. High dose bzd's were d/c'd and he was restarted on his home valium regimen - cont home Valium dose (10 mg qam, 12 mg qpm), which is currently being tapered by his PCP (pharm talked with his PCP) - no escalation of bzd dosing please - cont mvi/thiamine/folate. # URI - +coronavirus +/- PNA, CXR 06/14 pers reviewed/interpreted, not convinced there is a LLL consolidation. PCT neg, atbx d/c'd. - cont nebs - s/p 5 day prednisone burst # SOB - with new DVT and noted tachycardia, CTA personally reviewed/interp- poor study, possible sub-segmental PE - Eliquis as below # alcohol dependence: patient motivated to quit drinking but very limited resources - CM consulted, not able to find resources [facility] - also suspect bzd dependence, currently being weaned off bzd's by his PCP # RLE DVT: Provoked in setting of hospitalization - change to oral eliquis - tylenol and prn oxy for pain control, I've declined to increase Oxy dose ( pain out of proportion to exam),noting pt has exhibited drug seeking behaviors. # seizure d/o: likely 2/2 etoh and possibly bzd w/d # chronic neuropathic pain: 2/2 his combat injuries - continue lyrica and gabapentin # anxiety/PTSD: 2 tours in [place] (though accuracy of this has been questioned), likely underlying his alcohol disorder, he is followed by a therapist and recommend that he continue this after discharge - contl prazosin for nightmares and PTSD #Insomnia -cont Ambien, Prazosin as above #Pedal Edema -S/p intermittent doses of PO Lasix, continue to monitor SCD's Dispo: cont inpatient/med surg. CM involved in dispo planning, therapy services recommending SNF. Subjective: Pt continues to c/o pain in his knee, asks for more oxy. Also feels SOB at times. Denies CP. Not coughing much. No fevers. Objective: Vital Signs Temp Pulse Resp BP Pulse Ox 36.6 C 94 16 115/79 93 06/18/18 23:35 06/19/18 07:50 06/19/18 07:50 06/19/18 07:50 06/19/18 07:50 Laboratory Results 06/16/18 07:59 06/15/18 07:09 06/18/18 06/19/18 06/20/18 05:59 05:59 05:59 Intake Total 1758 1600 Balance 1758 1600 PT 13.6 SEC (12.0-15.0) 06/09/18 15:44 INR 1.02 (0.83-1.16) 06/09/18 15:44 - Physical Exam Constitutional: no apparent distress Eyes: PERRL Ears, Nose, Mouth, Throat: moist mucous membranes Cardiovascular: regular rate and rhythym Respiratory: no respiratory distress, clear to auscultation Gastrointestinal: normoactive bowel sounds, soft, non-tender abdomen Skin: warm Musculoskeletal: full muscle strength Neurologic: AAOx3 Psychiatric: interacting appropriately ICD10 Worksheet Patient Problems: Problems Problem Status Onset Abdominal pain Acute Acute bronchitis Acute Alcohol dependence Acute Alcohol withdrawal Acute Anxiety Acute Bronchitis Acute Chest pain Acute Gastritis Acute Seizure Acute Vomiting Acute
[2018-06-19] MEDS: IPRATROPIUM/ALBUTEROL 3 ML DEYVIAL IH SCH ×2 (17:35→22:41)
[2018-06-19] MEDS: PRAZOSIN HCL 1 MG CAP PO SCH (21:39)
[2018-06-19] MEDS: APIXABAN 5 MG TAB PO SCH (21:49)
[2018-06-19] MEDS: guaiFENesin/CODEINE PHOS 10 ML UDCUP PO PRN (21:49)
[2018-06-19] MEDS: BENZONATATE 100 MG CAP PO PRN (21:49)
[2018-06-19] MEDS: DIAZEPAM 2 MG TAB PO SCH (21:49)
[2018-06-20] MEDS: ZOLPIDEM TARTRATE 5 MG TAB PO PRN ×2 (00:42→23:17)
[2018-06-20] MEDS: traZODone 100 MG TAB PO SCH ×2 (00:42→23:17)
[2018-06-20] MEDS: FAMOTIDINE 20 MG TAB PO SCH ×3 (00:47→20:39)
[2018-06-20] MEDS: oxyCODONE IR 5 MG TAB PO PRN ×3 (06:05→20:38)
[2018-06-20] MEDS: guaiFENesin/CODEINE PHOS 10 ML UDCUP PO PRN ×3 (06:06→20:39)
[2018-06-20] MEDS: GABAPENTIN 300 MG CAP PO PRN (06:11)
[2018-06-20] MEDS: IPRATROPIUM/ALBUTEROL 3 ML DEYVIAL IH SCH ×4 (06:29→20:19)
[2018-06-20] MEDS: PREGABALIN 150 MG CAP PO SCH ×3 (08:44→20:39)
[2018-06-20] MEDS: APIXABAN 5 MG TAB PO SCH ×2 (08:44→20:38)
[2018-06-20] MEDS: THIAMINE HCL 100 MG TAB PO SCH (08:44)
[2018-06-20] MEDS: NICOTINE 21 MG/24 HR PATCH TD SCH (08:45)
[2018-06-20] MEDS: DIAZEPAM 10 MG TAB PO SCH ×2 (08:45→20:39)
[2018-06-20] MEDS: FOLIC ACID 1 MG TAB PO SCH (08:45)
[2018-06-20] MEDS: SENNOSIDES/DOCUSATE SODIUM TAB PO SCH ×2 (08:45→20:38)
[2018-06-20] MEDS: MULTIVITAMINS 1 EACH TAB PO SCH (08:45)
--- NOTE | 2018-06-20 11:04 | HOSPPROG ---
Hospitalist Progress Note Assessment/Plan: 32 yo M with PMH of etoh (and suspected bzd) dependence admitted with alcohol withdrawal, severe # severe alcohol withdrawal: required ICU care with precedex, now stable, w/d should be over 11 days since arrival. High dose bzd's were d/c'd and he was restarted on his home valium regimen - cont home Valium dose (10 mg qam, 12 mg qpm), which is currently being tapered by his PCP (pharm talked with his PCP) - no escalation of bzd dosing - cont mvi/thiamine/folate. # URI - +coronavirus +/- PNA, CXR 06/14 pers reviewed/interpreted, not convinced there is a LLL consolidation. PCT neg, atbx d/c'd. - cont nebs, now scheduled - s/p 5 day prednisone burst # SOB - with new DVT and noted tachycardia, CTA personally reviewed/interp- poor study, possible sub-segmental PE - Eliquis as below # alcohol dependence: patient motivated to quit drinking but very limited resources - CM consulted, not able to find resources [facility] - also suspect bzd dependence, currently being weaned off bzd's by his PCP # RLE DVT: Provoked in setting of hospitalization - change to oral eliquis 10 bid x7d, then 5 mg bid x3 months (discussed bleeding risk) - tylenol and prn oxy for pain control, I've declined to increase Oxy dose, noting pt has exhibited drug seeking behaviors. # seizure d/o: likely 2/2 etoh and possibly bzd w/d # chronic neuropathic pain: 2/2 his combat injuries - continue lyrica and gabapentin # anxiety/PTSD: 2 tours in [place] (though accuracy of this has been questioned), likely underlying his alcohol disorder, he is followed by a therapist and recommend that he continue this after discharge - started prazosin for nightmares and PTSD #Insomnia -cont Ambien, Prazosin as above #Pedal Edema -S/p intermittent doses of PO Lasix, continue to monitor SCD's Dispo: cont inpatient/med surg. CM involved in dispo planning, therapy services recommending SNF. Subjective: Pt continues to c/o pain in right knee and chest. He asks for more oxycodone. No fevers. No cough. No SOB. Objective: Vital Signs Temp Pulse Resp BP Pulse Ox 36.8 C 105 H 18 130/81 H 94 06/20/18 08:09 06/20/18 09:51 06/20/18 09:51 06/20/18 08:09 06/20/18 09:51 Laboratory Results 06/16/18 07:59 06/15/18 07:09 06/19/18 06/20/18 06/21/18 05:59 05:59 05:59 Intake Total 1600 4100 Output Total 300 Balance 1600 3800 PT 13.6 SEC (12.0-15.0) 06/09/18 15:44 INR 1.02 (0.83-1.16) 06/09/18 15:44 - Physical Exam Constitutional: no apparent distress Eyes: PERRL Ears, Nose, Mouth, Throat: moist mucous membranes Cardiovascular: regular rate and rhythym Respiratory: no respiratory distress, clear to auscultation Gastrointestinal: normoactive bowel sounds, soft, non-tender abdomen Skin: warm Musculoskeletal: full muscle strength Neurologic: AAOx3 Psychiatric: interacting appropriately ICD10 Worksheet Patient Problems: Problems Problem Status Onset Abdominal pain Acute Acute bronchitis Acute Alcohol dependence Acute Alcohol withdrawal Acute Anxiety Acute Bronchitis Acute Chest pain Acute Gastritis Acute Seizure Acute Vomiting Acute
[2018-06-20] MEDS: CYCLOBENZAPRINE 10 MG TAB PO PRN ×2 (12:33→23:17)
[2018-06-20] MEDS: BENZONATATE 100 MG CAP PO PRN (15:12)
[2018-06-20] MEDS: DIAZEPAM 2 MG TAB PO SCH (20:38)
[2018-06-20] MEDS: PRAZOSIN HCL 1 MG CAP PO SCH (20:39)
--- NOTE | 2018-06-20 20:59 | HOSPPROG ---
Hospitalist Progress Note Assessment/Plan: # severe alcohol withdrawal with a seizure at home on admission date: required ICU care with precedex, now stable - cont home Valium dose (10 mg qam, 12 mg qpm), which is currently being tapered by his PCP (pharm talked with his PCP) - no escalation of bzd dosing - cont mvi/thiamine/folate. # URI - +coronavirus +/- PNA, CXR 06/14 pers reviewed/interpreted, not convinced there is a LLL consolidation. PCT neg, atbx d/c'd. - cont nebs, now scheduled - s/p 5 day prednisone burst # PE and DVT, provoke in hospital - change to oral eliquis 10 bid x7d, then 5 mg bid x3 months (discussed bleeding risk) - tylenol and prn oxy for pain control, I've declined to increase Oxy dose, noting pt has exhibited drug seeking behaviors. # alcohol dependence: patient motivated to quit drinking but very limited resources - CM consulted, not able to find resources [facility] - also suspect bzd dependence, currently being weaned off bzd's by his PCP # seizure d/o: likely 2/2 etoh and possibly bzd w/d # chronic neuropathic pain: 2/2 his combat injuries - continue lyrica and gabapentin # anxiety/PTSD: 2 tours in [place] (though accuracy of this has been questioned), likely underlying his alcohol disorder, he is followed by a therapist and recommend that he continue this after discharge - started prazosin for nightmares and PTSD #Insomnia -cont Ambien, Prazosin as above #Pedal Edema -S/p intermittent doses of PO Lasix, continue to monitor Objective: Vital Signs Temp Pulse Resp BP Pulse Ox 36.8 C 110 H 20 128/85 H 94 06/20/18 15:01 06/20/18 20:21 06/20/18 20:21 06/20/18 20:39 06/20/18 16:31 Laboratory Results 06/16/18 07:59 06/15/18 07:09 06/19/18 06/20/18 06/21/18 06:59 06:59 06:59 Intake Total 1600 4100 3500 Output Total 300 2430 Balance 1600 3800 1070 PT 13.6 SEC (12.0-15.0) 06/09/18 15:44 INR 1.02 (0.83-1.16) 06/09/18 15:44 ICD10 Worksheet Patient Problems: Problems Problem Status Onset Abdominal pain Acute Acute bronchitis Acute Alcohol dependence Acute Alcohol withdrawal Acute Anxiety Acute Bronchitis Acute Chest pain Acute Gastritis Acute Seizure Acute Vomiting Acute
[2018-06-21] MEDS: IPRATROPIUM/ALBUTEROL 3 ML DEYVIAL IH SCH ×4 (06:08→20:57)
[2018-06-21] MEDS: guaiFENesin/CODEINE PHOS 10 ML UDCUP PO PRN ×3 (06:23→20:01)
[2018-06-21] MEDS: GABAPENTIN 300 MG CAP PO PRN ×2 (06:24→16:02)
[2018-06-21] MEDS: oxyCODONE IR 5 MG TAB PO PRN ×3 (06:24→20:01)
[2018-06-21] MEDS: FOLIC ACID 1 MG TAB PO SCH (09:34)
[2018-06-21] MEDS: APIXABAN 5 MG TAB PO SCH ×2 (09:34→20:02)
[2018-06-21] MEDS: THIAMINE HCL 100 MG TAB PO SCH (09:34)
[2018-06-21] MEDS: BENZONATATE 100 MG CAP PO PRN ×2 (09:34→20:03)
[2018-06-21] MEDS: PREGABALIN 150 MG CAP PO SCH ×3 (09:34→23:03)
[2018-06-21] MEDS: FAMOTIDINE 20 MG TAB PO SCH ×2 (09:34→20:02)
[2018-06-21] MEDS: MULTIVITAMINS 1 EACH TAB PO SCH (09:34)
[2018-06-21] MEDS: DIAZEPAM 10 MG TAB PO SCH ×2 (09:34→20:03)
[2018-06-21] MEDS: SENNOSIDES/DOCUSATE SODIUM TAB PO SCH ×2 (09:35→20:26)
[2018-06-21] MEDS: NICOTINE 21 MG/24 HR PATCH TD SCH (09:35)
--- NOTE | 2018-06-21 13:04 | ASMTCMCOM ---
CM Note CM Note Notes: Plan of care reviewed in am rounds. 32 year old male with history of ETOH and withdrawal. HX of PTSD. Given [facility] call [facility] and look into a [facility] inpatient recovery program. Patient has been here since 06/08. A ULTC will be sent today as patient per therapy the patient ii weak and might benefit from SNF stay. CM to follow. Plan: TBD Date Signed: 06/21/2018 01:04 PM Electronically Signed By:Caren Lovett RN
[2018-06-21] MEDS: predniSONE 20 MG TAB PO SCH (13:39)
--- NOTE | 2018-06-21 13:39 | HOSPPROG ---
Hospitalist Progress Note Assessment/Plan: # severe etoh w/d - off precedex - cont outpatient valium, clonidine - motivated to quit etoh but limited resources - thiamine # DVT/PE - eliquis for 3 months # coronavirus bronchitis/reactive airways exacerbation - off abx; cont tessalon pearls, codeine cough syrup, albuterol - completed pred x 5 days, will restart today with ongoing wheezing # R knee pain - reports old injuries, now also ?worse from DVT - will not escalate narcotics, cont oxy # seizure d/o - likely etoh - on valium # chronic neuropathic pain - on lyrica and gabapentin # anxiety/PTSD - prazosin started here # pedal edema - not seen today on exam, has received lasix # dispo - may needs SNF; CM involved Subjective: still coughing; c/o lung pain and R knee pain Objective: Vital Signs Temp Pulse Resp BP Pulse Ox 36.5 C 117 H 18 128/85 H 94 06/21/18 08:54 06/21/18 08:54 06/21/18 08:54 06/21/18 08:54 06/21/18 08:54 Laboratory Results 06/16/18 07:59 06/15/18 07:09 06/20/18 06/21/18 06/22/18 05:59 05:59 05:59 Intake Total 4100 4000 Output Total 300 2430 250 Balance 3800 1570 -250 PT 13.6 SEC (12.0-15.0) 06/09/18 15:44 INR 1.02 (0.83-1.16) 06/09/18 15:[address] reviewed - Physical Exam Constitutional: uncomfortable Cardiovascular: regular rate and rhythym, no murmur, rub, or gallop Respiratory: no respiratory distress, no rales or rhonchi, expiratory wheeze ( diffuse) Gastrointestinal: normoactive bowel sounds, soft, non-tender abdomen, no palpable masses ICD10 Worksheet Patient Problems: Problems Problem Status Onset Bronchitis Acute Vomiting Acute Seizure Acute Abdominal pain Acute Acute bronchitis Acute Chest pain Acute Gastritis Acute Anxiety Acute Alcohol withdrawal Acute Alcohol dependence Acute
[2018-06-21] MEDS: CYCLOBENZAPRINE 10 MG TAB PO PRN ×2 (16:02→20:02)
[2018-06-21] MEDS: ZOLPIDEM TARTRATE 5 MG TAB PO PRN (20:01)
[2018-06-21] MEDS: traZODone 100 MG TAB PO SCH (20:02)
[2018-06-21] MEDS: PRAZOSIN HCL 1 MG CAP PO SCH (20:02)
[2018-06-21] MEDS: DIAZEPAM 2 MG TAB PO SCH (20:03)
[2018-06-22] MEDS: IPRATROPIUM/ALBUTEROL 3 ML DEYVIAL IH SCH ×4 (06:04→20:14)
[2018-06-22] MEDS: CYCLOBENZAPRINE 10 MG TAB PO PRN ×3 (06:30→21:11)
[2018-06-22] MEDS: oxyCODONE IR 5 MG TAB PO PRN ×3 (06:30→18:30)
[2018-06-22] MEDS: GABAPENTIN 300 MG CAP PO PRN ×3 (06:30→21:10)
[2018-06-22] MEDS: guaiFENesin/CODEINE PHOS 10 ML UDCUP PO PRN ×3 (06:31→18:31)
[2018-06-22] MEDS: FOLIC ACID 1 MG TAB PO SCH (08:17)
[2018-06-22] MEDS: DIAZEPAM 10 MG TAB PO SCH ×2 (08:17→21:11)
[2018-06-22] MEDS: PREGABALIN 150 MG CAP PO SCH ×3 (08:17→21:10)
[2018-06-22] MEDS: APIXABAN 5 MG TAB PO SCH ×2 (08:17→21:11)
[2018-06-22] MEDS: SENNOSIDES/DOCUSATE SODIUM TAB PO SCH ×2 (08:17→21:10)
[2018-06-22] MEDS: THIAMINE HCL 100 MG TAB PO SCH (08:17)
[2018-06-22] MEDS: MULTIVITAMINS 1 EACH TAB PO SCH (08:18)
[2018-06-22] MEDS: predniSONE 20 MG TAB PO SCH (08:18)
[2018-06-22] MEDS: FAMOTIDINE 20 MG TAB PO SCH ×2 (08:18→21:12)
[2018-06-22 08:39] LABS: PLATELET COUNT 233 10^3/uL (150-400)
[2018-06-22] MEDS: NICOTINE 21 MG/24 HR PATCH TD SCH (10:12)
[2018-06-22] MEDS ORDERED: KETOROLAC 30 MG/1 ML SDV IVP PRN (10:56)
--- NOTE | 2018-06-22 11:10 | HOSPPROG ---
Hospitalist Progress Note Assessment/Plan: 32 yo M w severe etoh withdrawal severe etoh w/d - off precedex - cont outpatient valium, clonidine - motivated to quit etoh but limited resources - thiamine DVT/PE - eliquis for 3 months coronavirus bronchitis/reactive airways exacerbation - off abx; cont tessalon pearls, codeine cough syrup, albuterol - completed pred x 5 days,restarted 2/4 add toradol for pleuritic pain R knee pain - reports old injuries, now also ?worse from DVT - will not escalate narcotics, cont oxy seizure d/o - likely etoh - on valium chronic neuropathic pain - on lyrica and gabapentin anxiety/PTSD - prazosin started here pedal edema - not seen today on exam, has received lasix dispo - needs SNF; CM involved Subjective: 06/19 cxr w airways disease (interp by me) Objective: Vital Signs Temp Pulse Resp BP Pulse Ox 36.6 C 100 18 136/81 H 95 06/22/18 08:00 06/22/18 08:00 06/22/18 08:00 06/22/18 08:24 06/22/18 08:00 Laboratory Results 06/22/18 08:30 06/22/18 08:30 06/21/18 06/22/18 06/23/18 05:59 05:59 05:59 Intake Total 4000 1500 Output Total 2430 1940 Balance 1570 -440 PT 13.6 SEC (12.0-15.0) 06/09/18 15:44 INR 1.02 (0.83-1.16) 06/09/18 15:44 - Physical Exam Constitutional: no apparent distress, appears nourished, other (very weak,using walker) Eyes: PERRL, anicteric sclera Ears, Nose, Mouth, Throat: moist mucous membranes, hearing normal Cardiovascular: regular rate and rhythym, no murmur, rub, or gallop Respiratory: no respiratory distress, no rales or rhonchi, other (pleuritic pain ) Gastrointestinal: normoactive bowel sounds, soft, non-tender abdomen Genitourinary: No smith in urethra Skin: warm, normal color Musculoskeletal: No full muscle strength Neurologic: AAOx3 Psychiatric: interacting appropriately ICD10 Worksheet Patient Problems: Problems Problem Status Onset Abdominal pain Acute Acute bronchitis Acute Alcohol dependence Acute Alcohol withdrawal Acute Anxiety Acute Bronchitis Acute Chest pain Acute Gastritis Acute Seizure Acute Vomiting Acute
[2018-06-22] MEDS: DIAZEPAM 2 MG TAB PO SCH (21:10)
[2018-06-22] MEDS: PRAZOSIN HCL 1 MG CAP PO SCH (21:44)
[2018-06-22] MEDS: traZODone 100 MG TAB PO SCH (22:46)
[2018-06-23] MEDS: oxyCODONE IR 5 MG TAB PO PRN ×3 (05:43→18:36)
[2018-06-23] MEDS: guaiFENesin/CODEINE PHOS 10 ML UDCUP PO PRN ×3 (05:44→18:36)
[2018-06-23] MEDS: GABAPENTIN 300 MG CAP PO PRN ×3 (05:49→21:48)
[2018-06-23] MEDS: CYCLOBENZAPRINE 10 MG TAB PO PRN ×3 (05:49→21:49)
[2018-06-23] MEDS: IPRATROPIUM/ALBUTEROL 3 ML DEYVIAL IH SCH ×2 (06:01→11:26)
[2018-06-23] MEDS: APIXABAN 5 MG TAB PO SCH ×2 (10:31→21:47)
[2018-06-23] MEDS: FOLIC ACID 1 MG TAB PO SCH (10:32)
[2018-06-23] MEDS: DIAZEPAM 10 MG TAB PO SCH ×2 (10:32→21:48)
[2018-06-23] MEDS: MULTIVITAMINS 1 EACH TAB PO SCH (10:32)
[2018-06-23] MEDS: FAMOTIDINE 20 MG TAB PO SCH ×2 (10:32→21:47)
[2018-06-23] MEDS: PREGABALIN 150 MG CAP PO SCH ×3 (10:33→21:47)
[2018-06-23] MEDS: NICOTINE 21 MG/24 HR PATCH TD SCH (10:33)
[2018-06-23] MEDS: SENNOSIDES/DOCUSATE SODIUM TAB PO SCH ×2 (10:33→21:50)
[2018-06-23] MEDS: predniSONE 20 MG TAB PO SCH (10:33)
[2018-06-23] MEDS: THIAMINE HCL 100 MG TAB PO SCH (10:34)
--- NOTE | 2018-06-23 13:46 | ASMTCMCOM ---
CM Note CM Note Notes: Patient plan of care reviewed. MD put in for inpatient rehab evaluation and he has been declined. Rhonda from [facility] met with patient and awaiting receiving facility. Patient continues to state he feels unsafe to return home at this time. Will f/u with SNF facilities. CM to follow. Plan: Hopefully to SNF versus home with [facility] Date Signed: 06/23/2018 01:45 PM Electronically Signed By:Caren Lovett RN
--- NOTE | 2018-06-23 13:58 | HOSPPROG ---
Hospitalist Progress Note Assessment/Plan: 32 yo M w severe etoh withdrawal severe etoh w/d: this has resolved DVT/PE - eliquis for 3 months coronavirus bronchitis/reactive airways exacerbation - off abx; cont tessalon pearls, codeine cough syrup, albuterol - completed pred x 5 days,restarted 2/4 add toradol for pleuritic pain dc scheduled nebs R knee pain - reports old injuries, now also ?worse from DVT - will not escalate narcotics, cont oxy seizure d/o - likely etoh - on valium chronic neuropathic pain - on lyrica and gabapentin anxiety/PTSD - prazosin started here pedal edema - not seen today on exam, has received lasix dispo - needs SNF; CM involved Subjective: walking in [place] Objective: Vital Signs Temp Pulse Resp BP Pulse Ox 36.9 C 95 20 138/81 H 90 L 06/23/18 07:44 06/23/18 07:44 06/23/18 11:20 06/23/18 12:37 06/23/18 07:44 Laboratory Results 06/22/18 08:30 06/22/18 08:30 06/22/18 06/23/18 06/24/18 05:59 05:59 05:59 Intake Total 1500 2390 Output Total 1940 300 Balance -440 2090 PT 13.6 SEC (12.0-15.0) 06/09/18 15:44 INR 1.02 (0.83-1.16) 06/09/18 15:44 - Physical Exam Constitutional: no apparent distress, appears nourished Eyes: PERRL, anicteric sclera Ears, Nose, Mouth, Throat: moist mucous membranes, hearing normal Cardiovascular: regular rate and rhythym, no murmur, rub, or gallop, No tachycardia Respiratory: no respiratory distress, other (decreased pleural rub) Gastrointestinal: normoactive bowel sounds, soft, non-tender abdomen Genitourinary: no bladder fullness, No smith in urethra Skin: warm, normal color Musculoskeletal: no muscle tenderness, No full muscle strength Neurologic: AAOx3 Psychiatric: interacting appropriately ICD10 Worksheet Patient Problems: Problems Problem Status Onset Abdominal pain Acute Acute bronchitis Acute Alcohol dependence Acute Alcohol withdrawal Acute Anxiety Acute Bronchitis Acute Chest pain Acute Gastritis Acute Seizure Acute Vomiting Acute
[2018-06-23] MEDS: LACTULOSE 20 GM/30 ML UDCUP PO PRN (16:17)
[2018-06-23] MEDS: ACETAMINOPHEN 325 MG TAB PO PRN (18:39)
[2018-06-23] MEDS: PRAZOSIN HCL 1 MG CAP PO SCH (21:47)
[2018-06-23] MEDS: DIAZEPAM 2 MG TAB PO SCH (21:49)
[2018-06-23] MEDS: ZOLPIDEM TARTRATE 5 MG TAB PO PRN (22:12)
[2018-06-23] MEDS: traZODone 100 MG TAB PO SCH (23:33)
[2018-06-24] MEDS: oxyCODONE IR 5 MG TAB PO PRN ×3 (05:43→18:11)
[2018-06-24] MEDS: BENZONATATE 100 MG CAP PO PRN (05:44)
[2018-06-24] MEDS: guaiFENesin/CODEINE PHOS 10 ML UDCUP PO PRN ×3 (05:44→18:11)
[2018-06-24] MEDS: CYCLOBENZAPRINE 10 MG TAB PO PRN ×3 (05:50→20:05)
[2018-06-24] MEDS: GABAPENTIN 300 MG CAP PO PRN ×3 (05:50→20:08)
[2018-06-24] MEDS: MULTIVITAMINS 1 EACH TAB PO SCH (09:42)
[2018-06-24] MEDS: SENNOSIDES/DOCUSATE SODIUM TAB PO SCH ×2 (09:42→20:04)
[2018-06-24] MEDS: THIAMINE HCL 100 MG TAB PO SCH (09:42)
[2018-06-24] MEDS: APIXABAN 5 MG TAB PO SCH ×2 (09:42→20:04)
[2018-06-24] MEDS: PREGABALIN 150 MG CAP PO SCH ×3 (09:42→22:09)
[2018-06-24] MEDS: DIAZEPAM 10 MG TAB PO SCH ×2 (09:42→20:05)
[2018-06-24] MEDS: FOLIC ACID 1 MG TAB PO SCH (09:42)
[2018-06-24] MEDS: FAMOTIDINE 20 MG TAB PO SCH ×2 (09:42→20:05)
[2018-06-24] MEDS: predniSONE 20 MG TAB PO SCH (09:42)
[2018-06-24] MEDS: NICOTINE 21 MG/24 HR PATCH TD SCH (09:43)
--- NOTE | 2018-06-24 13:11 | ASMTCMCOM ---
CM Note CM Note Notes: I spoke with patient about discharge planning. He has been given various options, and I wanted to see which he was considering. He has not been accepted by any SNF. We talked about him going home (where he lives w his father who is a positive person in his life), and he feels that he is not physically strong enough. I encouraged him to work w PT and ambulate as much as possible. We can order homecare PT/OT. I probed patient to discuss his alcoholism, mental health, and frequent hospital admissions. Although his concern right now is his weakness, he is able to acknowledge that mental health/substance abuse treatment is necessary. Fortunately, he has a good relationship w his PCP at [facility], Areli Mirza, as well as with his outpatient therapist. He has plans to follow up with the [place] for outpatient mental health services, and he says that Dr Mirza has recommended [facility]. He says that he is more motivated than ever to quit drinking d/t this current hospitalization. He is trying to disengage from triggering people in his life. He has some friends/neighbors who are also vets who may be able to let him stay w them for a few days since they have no stairs in their house. I encouraged physical activity as a form of therapy, recognizing that patient was likely very fit in the recent past. He said he had a friend who quit drinking by starting to jog. Hopefully, patient will be able to follow up on the above as an outpatient. He has an appt w his therapist next week and says he will f/u w PCP as well. I called [facility] and left a message for Dr Mirza as well. We will order homecare if patient is interested. Case Management will follow Current Discharge plan: home w homecare and outpatient f/u Date Signed: 06/24/2018 01:10 PM Electronically Signed By:Keyona Heller RN
--- NOTE | 2018-06-24 14:54 | HOSPPROG ---
Hospitalist Progress Note Assessment/Plan: 32 yo M w severe etoh withdrawal severe etoh w/d: this has resolved DVT/PE - eliquis for 3 months coronavirus bronchitis/reactive airways exacerbation - off abx; cont tessalon pearls, codeine cough syrup, albuterol - completed pred x 5 days,restarted 2/ dc pred today, 06/24 add toradol for pleuritic pain dc scheduled nebs R knee pain - reports old injuries, now also ?worse from DVT - will not escalate narcotics, cont oxy seizure d/o - likely etoh - on valium chronic neuropathic pain - on lyrica and gabapentin anxiety/PTSD - prazosin started here pedal edema - not seen today on exam, has received lasix dispo - no clear SNF options improving daily w PT discussed goal dc day of 06/26 with him (dc to home) and he is amenable Subjective: no snf options at this point Objective: Vital Signs Temp Pulse Resp BP Pulse Ox 36.8 C 98 16 131/82 H 92 06/24/18 07:44 06/24/18 07:44 06/24/18 07:44 06/24/18 12:06 06/24/18 07:44 Laboratory Results 06/22/18 08:30 06/22/18 08:30 06/23/18 06/24/18 06/25/18 05:59 05:59 05:59 Intake Total 2390 3200 Output Total 300 Balance 2090 3200 PT 13.6 SEC (12.0-15.0) 06/09/18 15:44 INR 1.02 (0.83-1.16) 06/09/18 15:44 - Physical Exam Constitutional: no apparent distress, appears nourished Eyes: PERRL, anicteric sclera Ears, Nose, Mouth, Throat: moist mucous membranes, hearing normal Cardiovascular: regular rate and rhythym, no murmur, rub, or gallop Respiratory: no respiratory distress, no rales or rhonchi, other (pleural rub decreased from yesterday) Gastrointestinal: normoactive bowel sounds, soft, non-tender abdomen Genitourinary: No smith in urethra Skin: warm, normal color Musculoskeletal: No full muscle strength Neurologic: AAOx3 ICD10 Worksheet Patient Problems: Problems Problem Status Onset Abdominal pain Acute Acute bronchitis Acute Alcohol dependence Acute Alcohol withdrawal Acute Anxiety Acute Bronchitis Acute Chest pain Acute Gastritis Acute Seizure Acute Vomiting Acute
[2018-06-24] MEDS: ALBUTEROL 60 PUFFS/8 GM MDI IH PRN (20:04)
[2018-06-24] MEDS: LACTULOSE 20 GM/30 ML UDCUP PO PRN (20:04)
[2018-06-24] MEDS: DIAZEPAM 2 MG TAB PO SCH (20:05)
[2018-06-24] MEDS: PRAZOSIN HCL 1 MG CAP PO SCH (20:09)
[2018-06-24] MEDS: traZODone 100 MG TAB PO SCH (22:09)
[2018-06-24] MEDS: ZOLPIDEM TARTRATE 5 MG TAB PO PRN (22:09)
[2018-06-25] MEDS: guaiFENesin/CODEINE PHOS 10 ML UDCUP PO PRN ×3 (06:06→17:02)
[2018-06-25] MEDS: CYCLOBENZAPRINE 10 MG TAB PO PRN ×4 (06:07→22:25)
[2018-06-25] MEDS: GABAPENTIN 300 MG CAP PO PRN ×4 (06:07→22:25)
[2018-06-25] MEDS: oxyCODONE IR 5 MG TAB PO PRN ×3 (06:07→17:03)
[2018-06-25] MEDS ORDERED: oxyCODONE IR 5 MG TAB PO PRN (08:21)
[2018-06-25] MEDS: MULTIVITAMINS 1 EACH TAB PO SCH (09:34)
[2018-06-25] MEDS: PREGABALIN 150 MG CAP PO SCH ×3 (09:35→22:25)
[2018-06-25] MEDS: DIAZEPAM 10 MG TAB PO SCH ×2 (09:35→22:25)
[2018-06-25] MEDS: SENNOSIDES/DOCUSATE SODIUM TAB PO SCH ×2 (09:35→23:07)
[2018-06-25] MEDS: APIXABAN 5 MG TAB PO SCH ×2 (09:35→22:26)
[2018-06-25] MEDS: THIAMINE HCL 100 MG TAB PO SCH (09:35)
[2018-06-25] MEDS: NICOTINE 21 MG/24 HR PATCH TD SCH (09:36)
[2018-06-25] MEDS: FOLIC ACID 1 MG TAB PO SCH (09:36)
[2018-06-25] MEDS: FAMOTIDINE 20 MG TAB PO SCH ×2 (09:36→22:25)
--- NOTE | 2018-06-25 15:35 | ASMTCMCOM ---
CM Note CM Note Notes: Met with patient to review no availability for SNF at this time. I have extended referrals in all[place]ript[place] to 30 miles at this time and have also placed referrals for C as he is likely to dc to home tomorrow. CM to follow. Plan: Dc to either SNF is accepting facility can be found otherwise home with [facility], Date Signed: 06/25/2018 03:34 PM Electronically Signed By:Caren Lovett RN
--- NOTE | 2018-06-25 15:39 | HOSPPROG ---
Hospitalist Progress Note Assessment/Plan: 32 yo M w severe etoh withdrawal severe etoh w/d: resolved DVT/PE - eliquis for 3 months coronavirus bronchitis/reactive airways exacerbation - off abx; cont tessalon pearls, codeine cough syrup, prn albuterol - s/p prednisone course - cont toradol for pleuritic pain - trial lidoderm patch for possible chest wall pain (avoiding opiates) R knee pain - reports old injuries, now also ?worse from DVT - wean oxy, pt understands he will not discharge with Rx for this seizure d/o - likely etoh - on valium as outpt, PCP weaning dose, will decrease to 10 mg BID at ri chronic neuropathic pain - on lyrica and gabapentin anxiety/PTSD - prazosin started here, weaning off bzds per my discussion with his PCP last week dispo - no SNF options per CM, improving daily w PT, planning for d/c tomorrow with [facility] RN PT,OT Subjective: Pt doing ok, c/o chest wall pain, again asks for more oxy. Notes he has a Rx at home from a previous root canal and thinks his PCP will Rx this for him. No coughing or wheezing. No SOB. Knee pain still an issue. He is ambulating better, uses walker. Objective: Vital Signs Temp Pulse Resp BP Pulse Ox 36.6 C 97 20 126/93 H 92 06/25/18 08:00 06/25/18 08:00 06/25/18 08:00 06/25/18 08:00 06/25/18 08:00 Laboratory Results 06/22/18 08:30 06/22/18 08:30 06/24/18 06/25/18 06/26/18 05:59 05:59 05:59 Intake Total 3200 850 500 Balance 3200 850 500 PT 13.6 SEC (12.0-15.0) 06/09/18 15:44 INR 1.02 (0.83-1.16) 06/09/18 15:44 - Physical Exam Constitutional: no apparent distress Eyes: PERRL Ears, Nose, Mouth, Throat: moist mucous membranes Cardiovascular: regular rate and rhythym, no murmur, rub, or gallop Respiratory: no respiratory distress, clear to auscultation Gastrointestinal: normoactive bowel sounds, soft, non-tender abdomen Skin: warm Musculoskeletal: full muscle strength Neurologic: AAOx3 Psychiatric: interacting appropriately ICD10 Worksheet Patient Problems: Problems Problem Status Onset Abdominal pain Acute Acute bronchitis Acute Alcohol dependence Acute Alcohol withdrawal Acute Anxiety Acute Bronchitis Acute Chest pain Acute Gastritis Acute Seizure Acute Vomiting Acute
[2018-06-25] MEDS ORDERED: LIDOCAINE 4%/MENTHOL 1% PATCH TD SCH (16:00)
--- NOTE | 2018-06-25 16:39 | ASMTCMCOM ---
CM Note CM Note Notes: Per [facility] the patient called for medication refill on his valium on 06/11 and it was filled and picked up by his father that evening as verified by [facility] pharmacist in [place], query if patient has accessed this while inpatient receiving scheduled valium. Will notify hospital medicine. Plan: DC to home with [facility] Date Signed: 06/25/2018 04:38 PM Electronically Signed By:Caren Lovett RN
[2018-06-25] MEDS ORDERED: PATCH REMOVAL 1 EA PATCH TD SCH (21:00)
[2018-06-25] MEDS: traZODone 100 MG TAB PO SCH (22:24)
[2018-06-25] MEDS: DIAZEPAM 2 MG TAB PO SCH (22:24)
[2018-06-25] MEDS: PRAZOSIN HCL 1 MG CAP PO SCH (22:26)
[2018-06-26 07:16] VITALS: BP 132/96
[2018-06-26] MEDS: oxyCODONE IR 5 MG TAB PO PRN (07:30)
[2018-06-26] MEDS: guaiFENesin/CODEINE PHOS 10 ML UDCUP PO PRN (07:30)
[2018-06-26] MEDS: CYCLOBENZAPRINE 10 MG TAB PO PRN (07:31)
[2018-06-26] MEDS: PREGABALIN 150 MG CAP PO SCH (07:31)
[2018-06-26] MEDS: FAMOTIDINE 20 MG TAB PO SCH (09:13)
[2018-06-26] MEDS: FOLIC ACID 1 MG TAB PO SCH (09:13)
[2018-06-26] MEDS: DIAZEPAM 10 MG TAB PO SCH (09:13)
[2018-06-26] MEDS: MULTIVITAMINS 1 EACH TAB PO SCH (09:13)
[2018-06-26] MEDS: APIXABAN 5 MG TAB PO SCH (09:14)
[2018-06-26] MEDS: GABAPENTIN 300 MG CAP PO PRN (09:27)
[2018-06-26] MEDS: THIAMINE HCL 100 MG TAB PO SCH (09:27)
--- NOTE | 2018-06-26 10:02 | PDIAF ---
- Diagnosis Diagnosis: alcohol and bzd dependence, DVT/PE Code Status: Full Code - Medication Management Discharge Medications: electronically signed and located in the Home Medication List. PICC Care - Routine: N/A - Orders Services needed: Home Care, Registered Nurse, Master Baling Machine Operator, Physical Therapy, Occupational Therapy Home Care Face to Face: I certify that this patient was under my care and that I had the required [id number] encounter meeting the encounter requirements on the discharge day. My findings support the fact that the patient is homebound as defined in Home Care Face to Face Continued: CMS Chapter 7 Medicare Benefits Manual 30.1.1 , The condition of the patient is such that there exists a normal inability to leave home and consequently, leaving home would require a considerable and taxing effort. Isolation Type: Droplet Isolation Diet Recommendation: no restrictions on diet Additional Instructions: I've written for #6 oxycodone. We have been weaning you off this. Take just 5 mg twice daily through the weekend, then stop. Follow up with your PCP for further pain issues. Continue the Valium taper as prescribed by your PCP. You requested a refill on 06/11 so you can use that Rx until you see your PCP. Xarelto for the DVT and PE. Take the 15 mg twice daily for 14 days. Then, change to the 20 mg once daily for a total of 3 months of treatment (then stop) . Do not drink alcohol as it will increase your risk of bleeding from the anti- coagulation. - Follow Up Care Current Providers and Referrals: NONE *PRIMARY CARE P,. [Unknown] - As per Instructions
--- NOTE | 2018-06-26 10:36 | ASMTLACE ---
[facility]OR[place] Length of stay for Answers: 14 days or more current admission Acuity / Level of Answers: Yes Care: Did the patient have an inpatient admission? Comorbidities - select Answers: Other Notes: seizure d/o, TBI all that apply # of Emergency department Answers: 3-4 visits in the last 6 months Social determinants Answers: History of substance abuse (ETOH, street drugs, prescription drugs, etc.) Homelessness (street, half-way) Mental health diagnosis (anxiety, depression, pers onality disorders, etc.) Score: 23 Date Signed: 06/26/2018 10:35 AM Electronically Signed By:ELENA Tripathi
--- NOTE | 2018-06-26 14:16 | ASMTDCNOTE ---
Case Management Discharge Discharge Order Complete? Answers: Yes Patient to Obtain Answers: Independently Medications Transportation Arranged Answers: Taxi - Voucher Transport will Pick (Date 06/26/2018 12:00 AM & Time) Discharge Comments Notes: Pt is discharging home to his father's today. His father is coming to the hospital to accompany him home. Pt has declined home care and stated he will follow up with his doctor on Thursday and pursue home care with her, if needed. [place] was contacted for Medicaid - aftr 6 minutes message said no one was available and hung up. Pt was provided a taxi voucher. [facility] called and was informed pt declined HC at this time. Date Signed: 06/26/2018 02:16 PM Electronically Signed By:ELENA Tripathi
--- NOTE | 2018-06-26 16:35 | GDS ---
[f rep st] DISCHARGE SUMMARY DISCHARGE DIAGNOSES: 1. Severe alcohol withdrawal was resolved. 2. Viral upper respiratory infection secondary to [place] virus. 3. Reactive airway disease, secondary to viral upper respiratory infection. 4. Deep vein thrombosis/pulmonary embolism. Started on Eliquis. 5. Seizure, likely secondary to alcohol and possibly benzodiazepine withdrawal. 6. History of alcohol dependence, status post detox. 7. History of benzodiazepine dependence. 8. Peripheral neuropathy. 9. Post-traumatic stress disorder and anxiety. HISTORY: For details of history please see history and physical dated June 07, 2018. In brief, the patient is a 32-year-old male with history of alcohol and benzodiazepine dependence who presented to the emergency department in acute withdrawal after suffering a seizure. He was admitte d to the hospital for further management. HOSPITAL COURSE: Patient admitted to the intensive care unit. He required high-dose benzodiazepines as well as Precedex for his severe withdrawal. He was then receiving very high-dose benzodiazepines , and these were tapered down. We contacted his primary care physician, who noted that she has been tapering him off benzodiazepines, and he was restarted on his home Valium dose of 10 mg in the mornin g, 12 mg in the evening. I will note that it was brought to my attention that he called his primary care office for refill of his Valium on June 11, during his hospitalization. He then asked me at discharge to refill his Valium. This raises suspicion that he may have been supplementing the doses that we have given him here. I think it will be very difficult for him to follow a taper. I did rem ind him that he refilled his Valium during hospitalization and he should have that prescription avail able until he follows up with his primary care physician. During his hospitalization, he was found t o have a right lower extremity DVT. He had been complaining of worsening respiratory symptoms and un derwent CTA of the chest, which was a poor study due to IV infiltration while receiving IV contrast. However, there was suggestion of subsegmental right lower lobe and lingular pulmonary embolism. He was started on Eliquis and completed 10 mg twice daily for 7 days. At the time of discharge, he is t ransitioned to Xarelto given that he is a Medicaid patient, and they require initial therapy with Xar elto. Therefore, he will complete 14 days of Xarelto at 15 mg p.o. twice daily. And can decrease to 20 mg once daily. I discussed with the patient the importance of maintaining sobriety from alcohol. His ongoing alcohol use will increase his bleeding risk on anticoagulation. He understands this and is motivated to maintain sobriety. He complained of pain every day and frequently asked to increase his oxycodone dose. His oxycodone was weaned down to 5 mg q.6 hours p.r.n. prior to discharge, and I did give him #6 so he can take the Oxy twice daily for the next couple of days to complete tapering him off this. He was evaluated by our therapy services and was deemed to be quite unsteady on his feet. He did rec eive thiamine, folate and vitamins for his alcohol withdrawal, but continued to have gait unsteadines s. SNF rehab was recommended, and Case Management made valiant effort while he maintained inpatient hospitalization, to look for SNF placement. Unfortunately, he was declined for any SNF bed. The onl y alternative is for him to discharge home with home health care RN, PT/OT as planned. DISPOSITION: Patient is discharged home with home health care services in stable condition. FOLLOWUP: Dr. Don Mirza, primary care. DISCHARGE MEDICATIONS: Please see [facility] for complete updated medication list. Medication list on discharge includes: Pepcid 20 mg p.o. twice daily, folic acid 1 mg p.o. daily, th iamine 100 mg p.o. daily, oxycodone 5 mg p.o. twice daily p.r.n., #6, no refill. He is instructed th at should not be a long-term medication. Xarelto 15 mg p.o. twice daily for 14 days then start Xarel to 20 mg p.o. daily, #30, no refills. He should complete 3 months of treatment for this provoked DVT . /[id number]/MODL
[2018-06-26] MEDS ORDERED: APIXABAN 5 MG TAB PO SCH (21:00)
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
== END 2018-06-26 12:15 | disposition home or self-care (01) | DRG 775 ==
LOC: CED 11:15 → CEDHOLD 13:28 → INTOOBSV 13:28 → F2N 16:42 → OBSVTOIN 06-08 14:37 → F2W 06-11 22:20 → F1N 06-18 18:25
PROVIDERS: ADMIT Internal Medicine; ATTEND Internal Medicine
PROC: HZ2ZZZZ Detoxification Services for Substance Abuse Treatment (ICD-10-PCS; principal; 2018-06-08)
DX: F10.231 Alcohol dependence with withdrawal delirium (principal); F10.239 Alcohol dependence with withdrawal, unspecified; R56.9 Unspecified convulsions; F13.20 Sedative, hypnotic or anxiolytic dependence, uncomplicated; I82.491 Acute embolism and thrombosis of other specified deep vein of right lower extremity; I26.99 Other pulmonary embolism without acute cor pulmonale; J06.9 Acute upper respiratory infection, unspecified; B97.29 Other coronavirus as the cause of diseases classified elsewhere; J45.901 Unspecified asthma with (acute) exacerbation; G47.00 Insomnia, unspecified; M79.2 Neuralgia and neuritis, unspecified; R26.81 Unsteadiness on feet; F43.12 Post-traumatic stress disorder, chronic; F41.9 Anxiety disorder, unspecified; F17.210 Nicotine dependence, cigarettes, uncomplicated; Z87.820 Personal history of traumatic brain injury
CPT/HCPCS: 71046-PO; 80053-ER; 96361-ER; 96374-ER; 96375-ER; 97110-GO; 97110-GP; 97116-GP; 97161-GP; 97166-GO; 97530-GO; 97530-GP; 97535-GO; G0378; G0480; J1200; J1650; J1885; J2060; J2405; J3411; J7512; J7613; Q9967

== ENCOUNTER 2018-08-12 10:52 | Inpatient (IN) | payer MEDICAID ==
[2018-08-12] MEDS ORDERED: NS 1,000 ML IV ONE (11:24)
[2018-08-12] MEDS ORDERED: LORazepam 1 MG TAB PO PRN (11:24)
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
[2018-08-12] MEDS: LORazepam 2 MG/ML INJ IVP PRN ×5 (12:35→21:53)
[2018-08-12 13:36] LABS: PLATELET COUNT 330 10^3/uL (150-400)
[2018-08-12] MEDS ORDERED: FLUMAZENIL 0.5 MG/5 ML MDV IVP PRN (16:29)
[2018-08-12] MEDS: DEXMEDETOMIDINE HCL 400 MCG in NS 100 ML IV SCH ×2 (17:26→21:14)
[2018-08-12] MEDS ORDERED: ONDANSETRON 4 MG/2 ML VIAL IVP PRN (17:54)
[2018-08-12] MEDS ORDERED: ACETAMINOPHEN 325 MG TAB PO PRN (17:54)
[2018-08-12] MEDS: THIAMINE HCL 500 MG in NS 100 ML IV SCH (18:00)
[2018-08-12] MEDS ORDERED: CYCLOBENZAPRINE 10 MG TAB PO PRN (18:42)
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
[2018-08-12] MEDS: NS 1,000 ML IV SCH (19:27)
[2018-08-12] MEDS: traZODone 100 MG TAB PO SCH (21:51)
[2018-08-12] MEDS: PREGABALIN 150 MG CAP PO SCH (21:51)
[2018-08-13] MEDS: DEXMEDETOMIDINE HCL 400 MCG in NS 100 ML IV SCH ×2 (02:11→09:22)
[2018-08-13] MEDS: LORazepam 2 MG/ML INJ IVP PRN ×5 (02:59→19:30)
[2018-08-13] MEDS: NS 1,000 ML IV SCH ×2 (03:57→11:48)
[2018-08-13 05:48] LABS: INR 1.04 (0.83-1.16); PROTIME(PATIENT) 13.2 SEC (12.0-15.0)
--- NOTE | 2018-08-13 08:27 | HOSPPROG ---
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 He has very poor inspiration so lung structures are crowded, but there appears to be likely some bronchitis, no infiltrate Objective: Vital Signs Temp Pulse Resp BP Pulse Ox 36 C 88 24 H 122/73 H 90 L 08/13/18 01:00 08/13/18 06:28 08/13/18 06:28 08/13/18 06:28 08/13/18 06:28 Laboratory Results 08/13/18 05:30 08/12/18 08/13/18 08/14/18 06:59 06:59 06:59 Intake Total 4696 Output Total 200 Balance 4496 PT 13.2 SEC (12.0-15.0) 08/13/18 05:30 INR 1.04 (0.83-1.16) 08/13/18 05:30 - Time Spent With Patient Time Spent with Patient: greater than 35 minutes Time Spent with Patient: Greater than 35 minutes spent on this patients care, greater than 50% of time spent counseling, educating, and coordinating care regarding the above mentioned plan. ICD10 Worksheet Patient Problems: Problems Problem Status Onset Alcohol withdrawal Acute Abdominal pain Acute Acute bronchitis Acute Alcohol dependence Acute Anxiety Acute Bronchitis Acute Chest pain Acute Gastritis Acute Seizure Acute Vomiting Acute
--- NOTE | 2018-08-13 09:01 | ASMTLACE ---
LORRAINE Acuity / Level of Answers: Yes Care: Did the patient have an inpatient admission? Comorbidities - select Answers: Opioid dependence all that apply / Chronic pain Other Notes: DVT/PE; TBI # of Emergency department Answers: 5-8 visits in the last 6 months Social determinants Answers: History of substance abuse (ETOH, street drugs, prescription drugs, etc.) History of trauma (PTSD, child abuse, domestic violence, etc.) Mental health diagnosis (anxiety, depression, pers onality disorders, etc.) Score: 21 Date Signed: 08/13/2018 09:01 AM Electronically Signed By:Mary Benavides
[2018-08-13] MEDS: PREGABALIN 150 MG CAP PO SCH ×3 (09:20→20:46)
[2018-08-13] MEDS: THIAMINE HCL 500 MG in NS 100 ML IV SCH (09:20)
[2018-08-13] MEDS: RIVAROXABAN 20 MG TAB PO SCH (09:20)
[2018-08-13] MEDS: traMADol 50 MG TAB PO PRN (09:34)
[2018-08-13] MEDS ORDERED: ALBUTEROL 3 ML DEYVIAL IH PRN (09:48)
[2018-08-13] MEDS ORDERED: ALTEPLASE 2 MG VIAL IVP PRN (10:12)
[2018-08-13] MEDS: AMOXICILLIN/CLAVULANATE POT 875/125 MG TAB PO SCH ×2 (10:22→20:46)
[2018-08-13] MEDS: predniSONE 20 MG TAB PO SCH (11:48)
[2018-08-13] MEDS: GABAPENTIN 300 MG CAP PO PRN ×2 (11:51→17:33)
[2018-08-13] MEDS: LORazepam 2 MG/ML INJ IVP SCH ×2 (11:51→16:02)
--- NOTE | 2018-08-13 11:54 | PDMN ---
Medical Necessity Medical necessity: Pt meets IP criteria per & MCG M-[id number]; est los >2 mn for eval/tx of severe alcohol withdrawal; admit to SDU for detox w/close monitoring & CIWA protocol w/IV Precedex; hx alcoholism w/withdrawal seizures, PE/DVT on AC , TBI, PTSD; per H&P & order 08/12/18
--- NOTE | 2018-08-13 12:19 | ASMTCMCOM ---
CM Note CM Note Notes: CM met with pt, care discussed in rounds, chart reviewed. CM completed CAGE. Pt reports last time when he was discharged after a 20 day hospitalization (refused home care, stayed with his dad) he reports he was sober for about a week. CM asked if he engaged with any outpatient services to support his sobriety, he said no. He said he was feeling good and that helped him stay sober. Pt reports when the pain started again he started drinking and now is drinking a pint and a half of vodka daily, smoking a "few hits" of marijuana daily and says he takes "a percocet when my teeth hurt". Pt reports he is going to think about if he wants to go to rehab or not. He says that his plan is to move to [place] with his mom and brother who live there and are pastors. He feels getting away from negative influences in this area would help promote his recovery. CM provided education to pt about recovery. Last admission [facility] was willing to work with pt to provide [facility] [place], CM reminded pt of this and he said he was not interested at this time. Pt reports past admissions to [facility] and linkage with outpatient substance abuse treatment in the past. He says last connection was two years ago. He did engage in follow-up services since last admission. Pt is currently on [facility] protocol [facility] to follow. Plan: TBD Date Signed: 08/13/2018 12:18 PM Electronically Signed By:AMANUEL Cardona
--- NOTE | 2018-08-13 16:28 | GCON ---
[f rep st] CONSULTATION PULMONARY CRITICAL CARE CONSULTATION DATE OF CONSULTATION: 08/13/2018 REASON FOR CONSULTATION: Alcohol withdrawal. HISTORY: The patient is a 32-year-old chronic alcoholic. He has been seen multiple times over the l ast several years in the emergency department and has been admitted on a number of occasions related to chronic and acute alcohol issues. He has a history of DTs and alcohol withdrawal seizures. He wa s last admitted 2 months ago. He was apparently sober for about a week after this admission. He maxwell s have a history of traumatic brain injury and posttraumatic stress disorder secondary to se rvice in [place]. When he was last here, he was diagnosed with DVT and possible pulmonary embolism. Pl an was for 3 months of anticoagulation, which he has not been taking. On admission, he stated that he was starting to go through withdrawal and wanted to detox from alcoho l and was interested in quitting. He was admitted to the intensive care unit on the [facility] protocol. PAST MEDICAL HISTORY: Remarkable for chronic and acute alcoholism, DTs and withdrawal seizures, PTSD and traumatic brain injury, chronic pain, and a history of DVT and pulmonary embolism recently. MEDICATIONS: Reported medications on admission included Lyrica, Valium 8 mg twice daily, Flexeril 10 mg three times daily p.r.n., albuterol as needed, Neurontin 300 mg three times daily p.r.n., Xarelto which he has not been taking by report, trazodone 100 mg at bedtime, and clonidine 0.1 mg three time s daily. SOCIAL HISTORY: The patient lives with his father. He has other family out of state. He does smoke cigarettes daily, approximately quarter pack and drinks 2 pints of vodka per day. FAMILY HISTORY: Noncontributory/negative. REVIEW OF SYSTEMS: A 10-point review of systems is negative except as noted above. In addition, he does complain of some cough and pulmonary congestion, no chest pain. He complains of some foot pain. PHYSICAL EXAMINATION: GENERAL APPEARANCE: Reveals a gentleman who appears relatively well kept. He is in no distress, sitting up in bed. He does have a tremor. He is lightly sedated secondary to me dications. VITAL SIGNS: Blood pressure is 117/90, heart rate 100 with sinus rhythm on the monitor. Respiratory rate is 16. He is afebrile. He is on room air with saturations of 95%. HEENT: Unrema rkable for lymphadenopathy or thyromegaly. Mucous membranes are moist. There is no jugular venous d istention. PULMONARY: The chest reveals mildly decreased breath sounds bilaterally with a somewhat prolonged expiratory phase. With exhalation, there are a few wheezes and some mild congestion. With voluntary cough, there is central congestion without taylor rhonchi. He is not currently bringing up any mucus. HEART: Tachycardic. There are no significant murmurs, no gallops. ABDOMEN: Soft and nontender. Organomegaly is not appreciated. Bowel sounds are present. He has no Bo catheter in place. EXTREMITIES: Without edema. There are no cords, no obvious tenderness in the calves. NEURO LOGIC: Nonfocal. He is oriented x2, unclear of the exact date. DATABASE: Chest x-ray shows a poor inspiratory effort with no evidence of pneumonia or consolidation . Mild atelectasis appears to be present at the left costophrenic angle. White blood cell count 7500, hematocrit 49, platelets 330,000. PT and INR were normal on admission a s was basic metabolic panel. Bilirubin and liver function studies were normal. Blood alcohol was le ss than 10. ASSESSMENT: 1. Alcohol withdrawal. 2. History of alcohol withdrawal seizures. 3. History of deep venous thrombosis/pulmonary embolism. Off anticoagulation on admission. 4. Bronchitis. He does have pulmonary congestion consistent with this. 5. History of peripheral neuropathy. 6. History of traumatic brain injury and posttraumatic stress disorder. PLAN AND RECOMMENDATIONS: The patient will be kept in the intensive care unit on the [facility] protocol. Scheduled Ativan needs to be given for ongoing seizure prophylaxis. Precedex will be needed seconda ry to high amounts of Ativan so far required. Thiamine will be given. Augmentin has been added for a dental tooth infection. This should also likely cover his bronchitis. His outpatient medications will be restarted and/or continued. Bronchodilators will be given. Laboratory and chest x-ray will be followed. A PICC line will be required as he has no venous access. Further plans and recommendations will be made based on his progress over the next 12-24 hours. /[id number]/MODL
[2018-08-13] MEDS: traZODone 100 MG TAB PO SCH (20:46)
[2018-08-14] MEDS: LORazepam 2 MG/ML INJ IVP SCH ×4 (00:03→16:50)
[2018-08-14] MEDS: DEXMEDETOMIDINE HCL 400 MCG in NS 100 ML IV SCH ×6 (01:53→20:16)
[2018-08-14] MEDS: LORazepam 2 MG/ML INJ IVP PRN ×11 (03:32→21:44)
[2018-08-14] MEDS: PREGABALIN 150 MG CAP PO SCH ×3 (08:09→20:16)
[2018-08-14] MEDS: AMOXICILLIN/CLAVULANATE POT 875/125 MG TAB PO SCH ×2 (08:09→20:16)
[2018-08-14] MEDS: predniSONE 20 MG TAB PO SCH (08:09)
[2018-08-14] MEDS: THIAMINE HCL 500 MG in NS 100 ML IV SCH (08:09)
[2018-08-14] MEDS: RIVAROXABAN 20 MG TAB PO SCH (08:09)
[2018-08-14] MEDS: traMADol 50 MG TAB PO PRN ×2 (08:13→14:17)
--- NOTE | 2018-08-14 10:07 | HOSPPROG ---
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, MY REVIEW: Sinus EXAM: Groggy but arousable, somewhat disoriented, no tremor, currently not agitated Dental exam was severely carious teeth including to there are nearly destroyed in the left upper set with some infection including certainly gingivitis at a minimum around the canine and premolar Skin warm dry good color Respirations slightly labored Lungs with diffuse rhonchi Heart regular no murmur Abdomen normal Extremities unremarkable IV site looks good Lab data: Basic met panel normal Objective: Vital Signs Temp Pulse Resp BP Pulse Ox 36.1 C 73 18 121/92 H 94 08/14/18 07:56 08/14/18 07:56 08/14/18 07:56 08/14/18 07:56 08/14/18 07:56 Laboratory Results 08/14/18 04:12 08/13/18 08/14/18 08/15/18 06:59 06:59 06:59 Intake Total 4696 5534 Output Total 200 5400 Balance 4496 134 PT 13.2 SEC (12.0-15.0) 08/13/18 05:30 INR 1.04 (0.83-1.16) 08/13/18 05:30 ICD10 Worksheet Patient Problems: Problems Problem Status Onset Alcohol withdrawal Acute Abdominal pain Acute Acute bronchitis Acute Alcohol dependence Acute Anxiety Acute Bronchitis Acute Chest pain Acute Gastritis Acute Seizure Acute Vomiting Acute
[2018-08-14] MEDS: GABAPENTIN 300 MG CAP PO PRN (11:01)
--- NOTE | 2018-08-14 15:05 | PDINTPN ---
Digital Project Coordinator Progress Note Assessment/Plan: Assessment: 32-year-old chronic alcoholic admitted 08/12 with withdrawal symptoms, BAL less than 10. Alcohol withdrawal. Difficult to assess as he seems to know the questions and answers for CIWA. On Precedex as well as Ativan. On thiamin. Not hyperdynamic or agitated. Chronic alcohol abuse. Dental infection/broken tooth: On Augmentin. Bronchitis: On Augmentin, bronchodilators, low-dose prednisone. Improving. Active smoker. Has a patch. History of DVT in possible pulmonary embolism. On Xarelto. History of PTSD and TBI. Metabolic: No issues identified. Plan: Continue care on step-down. Continue CIWA protocol, Precedex, Ativan, thiamin. Continue bronchodilator treatments and low-dose prednisone. Continue antibiotics for his tooth infection. Consider psychiatric evaluation prior to discharge in light of his the PTSD 25 min of critical care time spent directly with the patient. Discussed with hospitalist, nursing, the ICU multi disciplinary team. Subjective: Complains of withdrawal symptoms, anxiety, etc. Asking for 4 mg of IV Ativan every 4 hr. Complains of tooth pain. Objective: Vital Signs Temp Pulse Resp BP Pulse Ox 36.6 C 95 17 128/96 H 94 08/14/18 12:04 08/14/18 12:04 08/14/18 12:04 08/14/18 12:04 08/14/18 12:04 Laboratory Results 08/14/18 04:12 08/13/18 08/14/18 08/15/18 05:59 05:59 05:59 Intake Total 4696 5534 500 Output Total 200 5400 500 Balance 4496 134 0 PT 13.2 SEC (12.0-15.0) 08/13/18 05:30 INR 1.04 (0.83-1.16) 08/13/18 05:30 Physical Exam - Physical Exam General Appearance: other (Mildly somnolent, arousable, responsive, appropriate) , No no apparent distress EENT: PERRL/EOMI, other (On room air) Neck: normal inspection (No JVD) Respiratory: lungs clear (Anteriorly), decreased breath sounds (At bases), No rales (No rhonchi, some persistent central congestion with cough), No rhonchi Cardiac/Chest: regular rate, rhythm, No gallop Abdomen: normal bowel sounds, non-tender, soft, No organomegaly Male Genitalia: other (No Bo catheter) Skin: normal color, warm/dry Extremities: No pedal edema Neuro/Psych: no motor/sensory deficits, other (Mild tremor), No cognition abnormalities ICD10 Worksheet Patient Problems: Problems Problem Status Onset Bronchitis Acute Vomiting Acute Seizure Acute Abdominal pain Acute Acute bronchitis Acute Chest pain Acute Gastritis Acute Anxiety Acute Alcohol withdrawal Acute Alcohol dependence Acute
[2018-08-14] MEDS: traZODone 100 MG TAB PO SCH (20:16)
[2018-08-14] MEDS: DEXMEDETOMIDINE HCL 1,000 MCG in NS 250 ML IV SCH (23:10)
[2018-08-15] MEDS: LORazepam 2 MG/ML INJ IVP PRN ×6 (02:07→15:51)
[2018-08-15] MEDS: LORazepam 2 MG/ML INJ IVP SCH ×2 (02:12→05:33)
[2018-08-15] MEDS: DEXMEDETOMIDINE HCL 1,000 MCG in NS 250 ML IV SCH ×4 (05:04→23:15)
[2018-08-15] MEDS: AMOXICILLIN/CLAVULANATE POT 875/125 MG TAB PO SCH ×2 (08:46→21:41)
[2018-08-15] MEDS: PREGABALIN 150 MG CAP PO SCH ×3 (08:46→21:41)
[2018-08-15] MEDS: RIVAROXABAN 20 MG TAB PO SCH (08:46)
[2018-08-15] MEDS: predniSONE 20 MG TAB PO SCH (08:46)
[2018-08-15] MEDS ORDERED: HALOPERIDOL LACT 5 MG/ML INJ IVP PRN (09:54)
[2018-08-15] MEDS ORDERED: LORazepam 0.5 MG TAB PO SCH (10:00)
[2018-08-15] MEDS: GABAPENTIN 300 MG CAP PO PRN ×2 (10:36→15:52)
[2018-08-15] MEDS: traMADol 50 MG TAB PO PRN (10:36)
[2018-08-15] MEDS ORDERED: PROTOCOL MAGNESIUM 1 DOSE IV PRN (11:30)
[2018-08-15] MEDS ORDERED: PROTOCOL POTASSIUM 1 DOSE MISC PRN (11:30)
--- NOTE | 2018-08-15 11:30 | HOSPPROG ---
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 Nurses do not feel they can appropriately care for him and give him appropriate med dosing under CIWA protocol. He recieved 54 mg ativan past 24 despite precedex PLANS: * Continue ICU care * stop CIWA protocol, continue Precedex drip and scheduled ativan, with prn ativan and haldol at nurses discretion for agitation or other need * Thiamin replacement * Augmentin for his dental infection (he has an appointment next week for tooth removal) * Nutrition as he can take it in * Continue his Neurontin and Lyrica for peripheral neuropathy * bronchodilator and steroid Seen by me on hospitalist rounds as well as multidisciplinary rounds Reviewed with Dr. 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, MY REVIEW: Sinus EXAM: Groggy awake, reasonably oriented, not agitated at the moment, no tremor at the moment Dental exam was severely carious teeth including to there are nearly destroyed in the left upper set with some infection including certainly gingivitis at a minimum around the canine and premolar Skin warm dry good color Respirations slightly labored Lungs with diffuse rhonchi Heart regular no murmur Abdomen normal Extremities unremarkable IV site looks good Lab data: Normal potassium Objective: Vital Signs Temp Pulse Resp BP Pulse Ox 36.4 C 81 18 141/99 H 96 08/15/18 08:00 08/15/18 09:01 08/15/18 08:00 08/15/18 08:00 08/15/18 08:00 Laboratory Results 08/15/18 05:45 08/14/18 08/15/18 08/16/18 06:59 06:59 06:59 Intake Total 8313 4882 Output Total 7856 3368 Balance 134 -362 PT 13.2 SEC (12.0-15.0) 08/13/18 05:30 INR 1.04 (0.83-1.16) 08/13/18 05:30 - Time Spent With Patient Time Spent with Patient: greater than 35 minutes Time Spent with Patient: Greater than 35 minutes spent on this patients care, greater than 50% of time spent counseling, educating, and coordinating care regarding the above mentioned plan. ICD10 Worksheet Patient Problems: Problems Problem Status Onset Alcohol withdrawal Acute Abdominal pain Acute Acute bronchitis Acute Alcohol dependence Acute Anxiety Acute Bronchitis Acute Chest pain Acute Gastritis Acute Seizure Acute Vomiting Acute
[2018-08-15] MEDS: LORazepam 1 MG TAB PO SCH ×3 (14:04→21:41)
--- NOTE | 2018-08-15 14:11 | PDINTPN ---
Director Of Community Center Progress Note Assessment/Plan: Assessment: 32-year-old chronic alcoholic admitted 08/12 with withdrawal symptoms, BAL less than 10. Alcohol withdrawal. Difficult to assess as he seems to know the questions and answers for CIWA. On high-dose Precedex as well as Ativan. Asking for the latter 4 mg every 4 hr. On thiamin. Not hyperdynamic or agitated. Chronic alcohol abuse. Dental infection/broken tooth: On Augmentin. Bronchitis: On Augmentin, bronchodilators, low-dose prednisone. Improving. Active smoker. Has a patch. History of DVT and possible pulmonary embolism. On Xarelto. History of PTSD and TBI. Metabolic: No issues identified. Plan: Continue care on step-down. Agree with discontinuation of CIWA protocol and plans by Dr. Mcnamara. Continue Precedex, lower dose scheduled Ativan, thiamin. Continue bronchodilator treatments and low-dose prednisone. Continue antibiotics for his tooth infection. Consider psychiatric evaluation prior to discharge in light of his the PTSD and alcohol dependence. 20 min of critical care time spent directly with the patient. Discussed with hospitalist, nursing, the ICU multi disciplinary team. Subjective: Somnolent, arouses, asking for Ativan. On high-dose Precedex. Still with dental pain Objective: Vital Signs Temp Pulse Resp BP Pulse Ox 36.4 C 79 15 137/99 H 94 08/15/18 11:19 08/15/18 11:19 08/15/18 11:19 08/15/18 11:19 08/15/18 11:19 Laboratory Results 08/15/18 05:45 08/14/18 08/15/18 08/16/18 05:59 05:59 05:59 Intake Total 5534 4888 Output Total 5400 5250 1800 Balance 134 -362 -1800 PT 13.2 SEC (12.0-15.0) 08/13/18 05:30 INR 1.04 (0.83-1.16) 08/13/18 05:30 Physical Exam - Physical Exam General Appearance: other (Sedated, somnolent, arouses) EENT: PERRL/EOMI, other (On room air) Neck: normal inspection Respiratory: lungs clear, decreased breath sounds (At bases, breath sounds coarse.) Cardiac/Chest: regular rate, rhythm Abdomen: normal bowel sounds, non-tender, soft Male Genitalia: other (No Bo, using urinal) Skin: normal color, warm/dry Extremities: No pedal edema Neuro/Psych: no motor/sensory deficits, cognition abnormalities (Somnolent, arouses, CIWA difficult to assess) ICD10 Worksheet Patient Problems: Problems Problem Status Onset Bronchitis Acute Vomiting Acute Seizure Acute Abdominal pain Acute Acute bronchitis Acute Chest pain Acute Gastritis Acute Anxiety Acute Alcohol withdrawal Acute Alcohol dependence Acute
[2018-08-15] MEDS: THIAMINE HCL 500 MG in NS 100 ML IV SCH (15:50)
--- NOTE | 2018-08-15 16:29 | ASMTCMCOM ---
CM Note CM Note Notes: A Behavioral Health eval has been requested due to patient's PTSD and ETOH dependence. CM has already contacted [facility] but the patient is not interested in their services currently. Patient is hoping to move to [place] with his mom and brother where he can get away from negative influences. Patient has been provided with ETOH resources on every admission here with us at [facility]. D/C plan remains TBD. CM will follow. Date Signed: 08/15/2018 04:29 PM Electronically Signed By:Corry Schmidt LCSW
[2018-08-15] MEDS: traZODone 100 MG TAB PO SCH (21:41)
[2018-08-16] MEDS: LORazepam 1 MG TAB PO SCH ×3 (02:00→10:23)
[2018-08-16] MEDS: GABAPENTIN 300 MG CAP PO PRN (05:00)
[2018-08-16] MEDS: traMADol 50 MG TAB PO PRN ×2 (05:00→20:40)
[2018-08-16] MEDS: DEXMEDETOMIDINE HCL 1,000 MCG in NS 250 ML IV SCH (05:01)
--- NOTE | 2018-08-16 08:23 | HOSPPROG ---
Hospitalist Progress Note Assessment/Plan: #Alcohol withdrawal: was on high-dose Precedex as well as Ativan, but feeling like kayden his symptoms for Benzos -seen by Agata Barraza. [facility] -restart Valium to avoid benzo w/d #Alcohol dependence: certified addiction counselor on cessation. Plan as above. Needs establish care with PCP; plans to move to [place] where family lives #Dental abscess: Augmentin, Day 4 #Bronchitis: Augmentin, bronchodilators, low-dose prednisone. Improving. Active smoker. Has a patch. #Recent DVT and PE: Xarelto. #History of PTSD/anxiety: states did well with Klonopin and Gabapentin in past. Will increase Gabapentin. Needs outpatient provider. Resume home valium #h/o TBI #Diet: regular #DVt ppx: Xarelto Disp: ok for floor. Inpatient admission to monitor for seizure Subjective: walking the unit without issue Objective: Vital Signs Temp Pulse Resp BP Pulse Ox 36.4 C 80 22 H 108/81 H 90 L 08/16/18 07:20 08/16/18 07:20 08/16/18 07:20 08/16/18 07:20 08/16/18 07:20 Laboratory Results 08/16/18 05:07 08/15/18 08/16/18 08/17/18 05:59 05:59 05:59 Intake Total 4888 6635 Output Total 5250 4575 750 Balance -362 2060 -750 PT 13.2 SEC (12.0-15.0) 08/13/18 05:30 INR 1.04 (0.83-1.16) 08/13/18 05:30 - Time Spent With Patient Time Spent with Patient: greater than 35 minutes Time Spent with Patient: Greater than 35 minutes spent on this patients care, greater than 50% of time spent counseling, educating, and coordinating care regarding the above mentioned plan. - Physical Exam Constitutional: no apparent distress Eyes: PERRL Ears, Nose, Mouth, Throat: moist mucous membranes Cardiovascular: regular rate and rhythym Respiratory: no respiratory distress Gastrointestinal: normoactive bowel sounds Genitourinary: no bladder fullness Skin: warm Musculoskeletal: full muscle strength Neurologic: AAOx3, CN II-XII Intact Psychiatric: interacting appropriately ICD10 Worksheet Patient Problems: Problems Problem Status Onset Bronchitis Acute Vomiting Acute Seizure Acute Abdominal pain Acute Acute bronchitis Acute Chest pain Acute Gastritis Acute Anxiety Acute Alcohol withdrawal Acute Alcohol dependence Acute
[2018-08-16] MEDS ORDERED: DEXMEDETOMIDINE HCL 400 MCG in NS 100 ML IV SCH (10:00)
[2018-08-16] MEDS: predniSONE 20 MG TAB PO SCH (10:24)
[2018-08-16] MEDS: PREGABALIN 150 MG CAP PO SCH ×3 (10:24→21:58)
[2018-08-16] MEDS: THIAMINE HCL 100 MG TAB PO SCH (10:25)
[2018-08-16] MEDS: AMOXICILLIN/CLAVULANATE POT 875/125 MG TAB PO SCH ×2 (10:25→20:04)
[2018-08-16] MEDS: RIVAROXABAN 20 MG TAB PO SCH (10:26)
[2018-08-16] MEDS ORDERED: DIAZEPAM 10 MG TAB PO PRN ×2 (10:58→11:04)
[2018-08-16] MEDS ORDERED: POTASSIUM CL 10 MEQ TAB PO ONE ×2 (14:35→19:58)
[2018-08-16] MEDS ORDERED: MAGNESIUM SULF 1 GM/DEXTROSE 100 ML IV ONE (15:00)
[2018-08-16] MEDS: GABAPENTIN 300 MG CAP PO SCH ×2 (16:58→21:58)
[2018-08-16] MEDS: chlordiazePOXIDE 25 MG CAP PO SCH ×2 (17:53→21:58)
[2018-08-16] MEDS ORDERED: LORazepam 1 MG TAB PO ONE (20:00)
[2018-08-16] MEDS: traZODone 100 MG TAB PO SCH (21:58)
[2018-08-16] MEDS ORDERED: diphenhydrAMINE 25 MG CAP PO PRN (23:36)
[2018-08-17] MEDS: traMADol 50 MG TAB PO PRN (03:21)
[2018-08-17] MEDS ORDERED: POTASSIUM CL 10 MEQ TAB PO ONE (05:03)
--- NOTE | 2018-08-17 05:55 | CPEKG ---
Test Reason : OPEN Blood Pressure : / mmHG Vent. Rate : 131 BPM Atrial Rate : 132 BPM P-R Int : 139 ms QRS Dur : 082 ms QT Int : 282 ms P-R-T Axes : 071 097 015 degrees QTc Int : 417 ms Sinus tachycardia Borderline right axis deviation Confirmed by Lazaro Stinson ([id number]) on 08/17/2018 5:54:54 AM Referred By: Clarissa Lundberg Confirmed By:Lazaro Stinson
[2018-08-17 07:21] VITALS: BP 109/82
[2018-08-17] MEDS: chlordiazePOXIDE 25 MG CAP PO SCH (08:42)
[2018-08-17] MEDS: THIAMINE HCL 100 MG TAB PO SCH (08:42)
[2018-08-17] MEDS: predniSONE 20 MG TAB PO SCH (08:42)
[2018-08-17] MEDS: PREGABALIN 150 MG CAP PO SCH (08:43)
[2018-08-17] MEDS: RIVAROXABAN 20 MG TAB PO SCH (08:43)
[2018-08-17] MEDS: AMOXICILLIN/CLAVULANATE POT 875/125 MG TAB PO SCH (08:43)
[2018-08-17] MEDS: GABAPENTIN 300 MG CAP PO SCH (08:43)
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
--- NOTE | 2018-08-17 14:34 | GDS ---
[f rep st] DISCHARGE SUMMARY DISCHARGE DIAGNOSES: 1. Severe alcohol withdrawal. 2. Alcohol dependence. 3. Sinus tachycardia. 4. Dental abscess. 5. Bronchitis. 6. Recent deep vein thrombosis and pulmonary embolus. 7. History of post-traumatic stress disorder. 8. Anxiety. 9. History of traumatic brain injury. HISTORY OF PRESENT ILLNESS: A 32-year-old male with alcohol dependence, multiple hospitalizations for withdrawal, presents requesting detox as he has been trying to get off alcohol. After his last hospitalization, he was sober for 5 days. [place] programs. He would like to move back to [place] with his family. HOSPITAL COURSE BY PROBLEM: 1. Severe alcohol withdrawal: required Precedex, high-dose Ativan. Suspect some manipulation, benzo-seeking. DC on Librium taper with high-dose benzos here. Case Management has provided him options through the [place] for re[place]. He plans to go home to [place] with family to get more care. 2. History of alcohol withdrawal seizure: None here. Again, Librium taper. 3. Anxiety: met with Agata Barraza. Had previously been on gabapentin, Klonopin. He is currently on Lyrica and Gabapentin; tells me gabapentin is more effective, so Increased 600mg TID and taper off Lyrica over the next couple weeks. Needs establish care with a PCP. Gave few 10mg Valium for anxiety that should be taken after stops Librium. 4. PTSD. Plan as stated above. 5. DVT/PE: Diagnosed June 2018, [place]. 6. TBI. 7. Chronic pain. contributing to some of his dependence. 8. Sinus tachycardia: Last night, he became tachycardic to 140s to 150s, likely secondary to mild benzodiazepine withdrawal. This improved with the addition of Librium. He is asymptomatic. DISPOSITION: Patient is stable for discharge home. NEW MEDICATIONS: See medication reconciliation. PHYSICAL EXAM: VITAL SIGNS: Temperature 36.4, blood pressure is 109/82, heart rate is one-teens, respirations 12, 95% on room air. GENERAL: He is well appearing, no acute distress. HEENT: PERRLA. Moist mucous membranes. CV: Mildly tachy, regular. LUNGS: Clear. ABDOMEN: Soft, nontender. MUSCULOSKELETAL: He is walking on the unit without issue. NEURO: 2 through 12 intact. No tongue fasciculations. PSYCH: Alert and oriented x3. Time spent on discharge greater than 30 minutes coordinating medications and counseling patient. /[id number]/MODL JEAN MARIE
[2018-08-17] MEDS ORDERED: PREGABALIN 150 MG CAP PO SCH (21:00)
== END 2018-08-17 13:36 | disposition home or self-care (01) | DRG 775 ==
LOC: CED 10:52 → CEDHOLD 13:08 → F2N 16:11
PROVIDERS: ADMIT Internal Medicine; ATTEND Internal Medicine
PROC: 02H633Z Insertion of Infusion Device into Right Atrium, Percutaneous Approach (ICD-10-PCS; principal; 2018-08-13)
DX: F10.232 Alcohol dependence with withdrawal with perceptual disturbance (principal); G62.9 Polyneuropathy, unspecified; R00.0 Tachycardia, unspecified; K04.7 Periapical abscess without sinus; J40 Bronchitis, not specified as acute or chronic; F43.10 Post-traumatic stress disorder, unspecified; F32.9 Major depressive disorder, single episode, unspecified; G89.29 Other chronic pain; Z87.820 Personal history of traumatic brain injury; Z86.711 Personal history of pulmonary embolism; Z86.718 Personal history of other venous thrombosis and embolism; Z79.01 Long term (current) use of anticoagulants; J44.9 Chronic obstructive pulmonary disease, unspecified
CPT/HCPCS: 80048-ER; 96361-ER; 96374-ER; 96376-ER; 99285-ER; C1751; G0480; J1630; J2060; J3411; J3475; J7512

== ENCOUNTER 2018-08-21 17:25 | Inpatient (IN) | payer MEDICAID ==
[2018-08-21] MEDS ORDERED: LORazepam 1 MG TAB PO ONE (17:53)
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
[2018-08-21] MEDS ORDERED: LORazepam 2 MG/ML INJ IVP ONE ×4 (18:34→22:45)
[2018-08-21] MEDS ORDERED: NS 1,000 ML IV ONE (18:37)
[2018-08-21] MEDS ORDERED: ACETAMINOPHEN 500 MG TAB PO ONE (19:29)
[2018-08-21] MEDS ORDERED: LORazepam 2 MG/ML INJ ONE (22:49)
[2018-08-22] MEDS ORDERED: ONDANSETRON DISINTEGRATING 4 MG TAB PO PRN (00:34)
[2018-08-22] MEDS ORDERED: ONDANSETRON 4 MG/2 ML VIAL IVP PRN (00:34)
[2018-08-22] MEDS ORDERED: ACETAMINOPHEN 325 MG TAB PO PRN (00:34)
[2018-08-22] MEDS ORDERED: FLUMAZENIL 0.5 MG/5 ML MDV IVP PRN (00:36)
[2018-08-22] MEDS: LORazepam 2 MG/ML INJ IVP PRN ×8 (01:09→22:26)
[2018-08-22] MEDS: NS 1,000 ML IV SCH ×2 (01:09→09:47)
[2018-08-22] MEDS ORDERED: traZODone 50 MG TAB PO ONE (01:21)
[2018-08-22] MEDS ORDERED: GABAPENTIN 300 MG CAP PO ONE (01:22)
--- NOTE | 2018-08-22 02:14 | PDGENHP ---
History and Physical - Chief Complaint Withdrawal - History of Present Illness 32 yo M w/ hx of ETOH use d/o presents with ETOH/BZD withdrawal. The patient was admitted here 08/12-08/17 for treatment of ETOH withdrawal. This will be his 8th admission in the last year for the same. During his most recent admission he was treated with Precedex and high dose Ativan. He has a very well documented history of drug seeking behavior, particularly as it pertains to Precedex. He was discharged on 08/17 with a prescribed Librium taper as well as 10 tabs of Valium. He says these measures were mildly helpful but did not keep him from developing withdrawal again. He says he only drank a few shots of alcohol today once the withdrawal symptoms were escalating. At the [facility] he received 10 mg of IV Ativan and was then transferred to the step down unit for further care. Case discussed with Dr. Levine; records reviewed and summarized above. History Information - Allergies/Home Medication List Allergies/Adverse Reactions: bee pollen Allergy (Severe, Verified 08/21/18 17:31) Dyspnea Home Medications: Albuterol [Proventil Inhaler HFA (*)] 2 puffs IH Q4 PRN 06/07/18 [Last Taken 08:00] I have personally reviewed and updated: family history, medical history - Past Medical History psychiatric history (anxiety), seizures Additional medical history: Alcoholism with withdraw seizures. Polypharmacy overdose 2014, benzodiazepine dependence. Anxiety Disorder (therapist Vero Cordova). Neuropathy. Chronic pain. Frequent presentations for alcohol related injuries. Traumatic brain injury - Surgical History Reports: no pertinent surgical hx Additional surgical history: X lap as a child. Right leg surgery. Rotator cuff repair - Family History Additional family history: No seizure disorder or Suicide attempt. Multiple family members with alcohol and polysubstance abuse disorder. - Social History Smoking Status: Heavy smoker Alcohol Use: Heavy Additional social history: Independent in his ADLs comma the patient lives with his father. 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 [employer] Review of Systems Review of Systems: ROS: 10pt was reviewed & negative except for what was stated in HPI & below Physical Exam Physical Exam: Temp Pulse Resp BP Pulse Ox 36.3 C 113 H 16 139/96 H 93 08/22/18 00:22 08/22/18 00:22 08/22/18 00:22 08/22/18 00:22 08/22/18 00:22 Constitutional: appears nourished, uncomfortable Eyes: PERRL, EOMI Ears, Nose, Mouth, Throat: moist mucous membranes, no oral mucosal ulcers Cardiovascular: no murmur, rub, or gallop, tachycardia Respiratory: no respiratory distress, clear to auscultation Gastrointestinal: normoactive bowel sounds, soft, non-tender abdomen Skin: warm, normal color Musculoskeletal: full muscle strength, no muscle tenderness Neurologic: AAOx3, CN II-XII Intact, other (+UE tremor) Psychiatric: interacting appropriately, anxious Lab Data & Imaging Review POC Sodium 144 mEq/L (135-145) 08/21/18 19:05 POC Potassium 3.9 mEq/L (3.3-5.0) 08/21/18 19:05 POC Chloride 104.0 mEq/L (97-110) 08/21/18 19:05 POC Total CO2 25 mEq/L (22-31) 08/21/18 19:05 POC BUN 6 mg/dL (7-23) L 08/21/18 19:05 POC Creatinine 0.8 mg/dL (0.7-1.3) 08/21/18 19:05 POC Glucose 85 mg/dL (70-100) 08/21/18 19:05 POC Calcium 9.5 mg/dL (8.5-10.4) 08/21/18 19:05 Magnesium 2.3 mg/dL (1.6-2.3) 08/21/18 18:13 POC Total Bilirubin 0.6 mg/dL (0.1-1.4) 08/21/18 19:05 POC AST 35 IU/L (17-59) 08/21/18 19:05 POC ALT 48 IU/L (21-72) 08/21/18 19:05 POC Alk Phosphatase 103 IU/L (38-126) 08/21/18 19:05 POC Total Protein 7.5 g/dL (6.3-8.2) 08/21/18 19:05 POC Albumin 3.6 g/dL (3.5-5.0) 08/21/18 19:05 Urine Opiates Screen NEGATIVE (NEGATIVE) 08/21/18 19:50 Urine Barbiturates NON-NEGATIVE (NEGATIVE) H 04/06/19 19:50 Ur Phencyclidine Scrn NEGATIVE (NEGATIVE) 08/21/18 19:50 Ur Amphetamine Screen NEGATIVE (NEGATIVE) 08/21/18 19:50 U Benzodiazepines Scrn NON-NEGATIVE (NEGATIVE) H 08/21/18 19:50 Urine Cocaine Screen NEGATIVE (NEGATIVE) 08/21/18 19:50 U Marijuana (THC) Screen NON-NEGATIVE (NEGATIVE) H 08/21/18 19:50 Ethyl Alcohol < 10 mg/dL (0-10) 08/21/18 18:13 Assessment & Plan Assessment: 32 yo M w/ anxiety, depression, PTSD, and ETOH use d/o presents w/ likely BZD withdrawal. Plan: 1. BZD withdrawal - Suspect benzodiazepene withdrawal is more likely than ETOH noting course over the last 2 weeks with minimal ETOH intake but high doses of benzos. He was discharged on 08/17 with Librium taper and additional diazepam but states these measures were only mildly helpful. - Observe in stepdown - CIWA protocol ordered - Start Librium TID scheduled - Will reserve Precedex for objective evidence of severe withdrawal only; patient has a history of repeated drug seeking as it pertains to this drug - IVF PRN 2. ETOH use d/o - Has been attempting to quit for some time but this is complicated by depression, PTSD, and anxiety. - CIWA as above - Continue to recommend inpatient treatment - Daily MVI, folate, thiamine 3. Anxiety, PTSD - Continue home medications pending reconciliation Diet - Regular Code - Full Ppx - LMWH Dispo - Admit under observation status
[2018-08-22 05:51] LABS: PLATELET COUNT 280 10^3/uL (150-400)
[2018-08-22] MEDS ORDERED: chlordiazePOXIDE 25 MG CAP PO SCH ×2 (09:00→16:00)
[2018-08-22] MEDS ORDERED: ENOXAPARIN 40 MG/0.4 ML SYR SC SCH (09:00)
[2018-08-22] MEDS: MULTIVITAMINS 1 EACH TAB PO SCH (09:45)
[2018-08-22] MEDS: FOLIC ACID 1 MG TAB PO SCH (09:45)
[2018-08-22] MEDS ORDERED: ALBUTEROL 60 PUFFS/8 GM MDI IH PRN (10:29)
[2018-08-22] MEDS: GABAPENTIN 300 MG CAP PO SCH ×3 (11:35→21:46)
[2018-08-22] MEDS: RIVAROXABAN 20 MG TAB PO SCH ×2 (12:18→12:22)
[2018-08-22] MEDS: PREGABALIN 150 MG CAP PO SCH ×2 (12:22→21:46)
[2018-08-22] MEDS: chlordiazePOXIDE 25 MG CAP PO PRN ×2 (14:04→18:05)
[2018-08-22] MEDS ORDERED: NICOTINE POLACRILEX 2 MG GUM B PRN (14:17)
--- NOTE | 2018-08-22 15:56 | ASMTCMCOM ---
CM Note CM Note Notes: 08/22/2018 Case Management Note Discussed pt during ICU rounds this morning. Pt admitted for ETOH withdrawl. Pt is well known to case management with multiple admissions this year. Please see previous case management notes with discharge plans. Pt has been unsuccessful in connecting with PA services upon discharge. Case Management d/c poc: to be determined. Case Management to follow. Date Signed: 08/22/2018 03:55 PM Electronically Signed By:Mable Funes RN
[2018-08-22] MEDS ORDERED: GABAPENTIN 300 MG CAP PO SCH (16:00)
--- NOTE | 2018-08-22 16:59 | HOSPPROG ---
Hospitalist Progress Note Assessment/Plan: * Etoh/benzo withdrawal -Ativan per CIWA -patient agreeable to benzo taper with goal that he will be OFF at discharge * PTSD/severe anxiety -needs more intensive outpatient management * Recent DVT/PE, Jun 18 2018 -he did not complete course of therapy of Xarelto -refuses resume med * Neuropathy -gabapentin + lyrica Subjective: agrees to taper off benzos Objective: Vital Signs Temp Pulse Resp BP Pulse Ox 37.0 C 127 H 20 124/99 H 91 L 08/22/18 16:00 08/22/18 16:00 08/22/18 16:00 08/22/18 16:00 08/22/18 16:00 Laboratory Results 08/22/18 05:24 08/22/18 05:24 08/21/18 08/22/18 08/23/18 05:59 05:59 05:59 Intake Total 2671 1618 Output Total 900 Balance 2671 718 EKG viewed, my personal interpretation is - sinus tachy susan LEE, Minor ICU rounds - okay for transfer out of ICU - Physical Exam Constitutional: no apparent distress, appears nourished, not in pain Cardiovascular: regular rate and rhythym, no murmur, rub, or gallop, tachycardia , No edema Respiratory: no respiratory distress, no rales or rhonchi, clear to auscultation Gastrointestinal: normoactive bowel sounds, soft, non-tender abdomen, no palpable masses Skin: no rashes or abrasions, no fluctuance, no induration Neurologic: AAOx3, sensation intact bilaterally, other (mild tremor) Psychiatric: interacting appropriately, not encephalopathic, thought process linear, anxious ICD10 Worksheet Patient Problems: Problems Problem Status Onset Bronchitis Acute Vomiting Acute Seizure Acute Abdominal pain Acute Acute bronchitis Acute Chest pain Acute Gastritis Acute Anxiety Acute Alcohol withdrawal Acute Alcohol dependence Acute
--- NOTE | 2018-08-22 17:29 | PDMN ---
Medical Necessity Medical necessity: [facility] M595 Substance Related D/O, 2 days: 32 yo w/ hx freq ETOH w/d hospitalizations presents w/ suspected benzodiazepine w/d s/sx, possible ETOH w/d. Initially OBS for monitoring/tx but pt requires additional MN for ongoing monitoring/tx under CIWA protocol. CIWA scores 7 today w/ tremor /anxiety/ALONSO/NV. Cont on IVF, IV antiemetics and freq IV Ativan admin. Pt has hx etoh w/d w/ seizures. Change to IP status 08/22/18@1536 per MD order.
[2018-08-22] MEDS ORDERED: PREGABALIN 150 MG CAP PO SCH (21:00)
[2018-08-22] MEDS: CYCLOBENZAPRINE 10 MG TAB PO SCH (21:46)
[2018-08-22] MEDS: DIAZEPAM 5 MG TAB PO PRN (21:51)
[2018-08-22] MEDS: traZODone 50 MG TAB PO PRN (22:25)
[2018-08-23] MEDS: chlordiazePOXIDE 25 MG CAP PO PRN ×2 (06:21→13:38)
[2018-08-23] MEDS: LORazepam 1 MG TAB PO PRN ×4 (06:21→21:20)
[2018-08-23] MEDS: DIAZEPAM 5 MG TAB PO PRN (09:50)
[2018-08-23] MEDS: RIVAROXABAN 20 MG TAB PO SCH (09:51)
[2018-08-23] MEDS: GABAPENTIN 300 MG CAP PO SCH ×3 (09:51→21:21)
[2018-08-23] MEDS: MULTIVITAMINS 1 EACH TAB PO SCH (09:51)
[2018-08-23] MEDS: FOLIC ACID 1 MG TAB PO SCH (09:51)
[2018-08-23] MEDS: CYCLOBENZAPRINE 10 MG TAB PO SCH ×3 (09:51→21:20)
[2018-08-23] MEDS: PREGABALIN 150 MG CAP PO SCH ×2 (09:51→21:21)
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
[2018-08-23] MEDS ORDERED: oxyCODONE IR 5 MG TAB PO ONE ×2 (16:11→22:35)
[2018-08-23] MEDS ORDERED: CEPACOL LOZENGE PO PRN (16:53)
--- NOTE | 2018-08-23 17:40 | HOSPPROG ---
Hospitalist Progress Note Assessment/Plan: * Etoh/benzo withdrawal -Ativan per CIWA -patient agreeable to benzo taper with goal that he will be OFF at discharge * PTSD/severe anxiety -needs more intensive outpatient management -follow-up [facility] for refill Valium prior to travel to [place] -agreeable to start Zoloft * Recent DVT/PE, Jun 18 2018 -he did not complete course of therapy of Xarelto -needs 1 more month Xarelto - especially with anticipated long care ride * Neuropathy -gabapentin + lyrica Subjective: Feels like withdrawal is improving, less tremor Objective: Vital Signs Temp Pulse Resp BP Pulse Ox 36.4 C 123 H 16 135/97 H 91 L 08/23/18 16:00 08/23/18 16:00 08/23/18 16:00 08/23/18 16:00 08/23/18 16:00 08/22/18 08/23/18 08/24/18 05:59 05:59 05:59 Intake Total 600 Balance 600 - Physical Exam Constitutional: no apparent distress, appears nourished, not in pain Cardiovascular: regular rate and rhythym, no murmur, rub, or gallop Respiratory: no respiratory distress, no rales or rhonchi, clear to auscultation Gastrointestinal: normoactive bowel sounds, soft, non-tender abdomen, no palpable masses Skin: no rashes or abrasions, no fluctuance, no induration Neurologic: AAOx3, sensation intact bilaterally Psychiatric: interacting appropriately, not anxious, not encephalopathic, thought process linear ICD10 Worksheet Patient Problems: Problems Problem Status Onset Bronchitis Acute Vomiting Acute Seizure Acute Abdominal pain Acute Acute bronchitis Acute Chest pain Acute Gastritis Acute Anxiety Acute Alcohol withdrawal Acute Alcohol dependence Acute
[2018-08-23] MEDS: SERTRALINE HCL 50 MG TAB PO SCH (18:17)
[2018-08-24] MEDS: SERTRALINE HCL 50 MG TAB PO SCH (08:10)
[2018-08-24] MEDS: PREGABALIN 150 MG CAP PO SCH ×2 (08:10→19:52)
[2018-08-24] MEDS: GABAPENTIN 300 MG CAP PO SCH ×3 (08:10→22:07)
[2018-08-24] MEDS: RIVAROXABAN 20 MG TAB PO SCH (08:10)
[2018-08-24] MEDS: MULTIVITAMINS 1 EACH TAB PO SCH (08:10)
[2018-08-24] MEDS: FOLIC ACID 1 MG TAB PO SCH (08:10)
[2018-08-24] MEDS: CYCLOBENZAPRINE 10 MG TAB PO SCH ×3 (08:10→22:08)
[2018-08-24] MEDS: LORazepam 1 MG TAB PO PRN ×3 (08:16→22:07)
[2018-08-24] MEDS: oxyCODONE IR 5 MG TAB PO PRN ×2 (11:47→19:52)
[2018-08-24] MEDS: DIAZEPAM 5 MG TAB PO PRN (13:07)
--- NOTE | 2018-08-24 13:24 | HOSPPROG ---
Hospitalist Progress Note Assessment/Plan: 32y male with hx of benzo use and ETOH. First encounter, chart reviewed. D/W Dr Lundberg * Etoh/benzo withdrawal -Ativan, titrate to 1mg Q6 -patient agreeable to benzo taper with goal that he will be OFF at discharge -will cont to taper however needs to DC to get his broken tooth fixed. -D/W CM and pt and PCP *Broken tooth -new -start abx -fu outpt * PTSD/severe anxiety -needs more intensive outpatient management -follow-up [facility] for refill Valium prior to travel to [place] -agreeable to start Zoloft -rec no benzo * Recent DVT/PE, Jun 18 2018 -he did not complete course of therapy of Xarelto -needs 1 more month Xarelto - especially with anticipated long care ride * Neuropathy -gabapentin + lyrica *DC -in am with Ativan through Thursday -fu with PCP as scheduled on Thursday -tooth extraction -D/W CM Subjective: Having pain from tooth. No other issues. Objective: Vital Signs Temp Pulse Resp BP Pulse Ox 36.5 C 95 18 129/87 H 92 08/24/18 11:02 08/24/18 11:02 08/24/18 11:02 08/24/18 11:02 08/24/18 11:02 08/23/18 08/24/18 08/25/18 05:59 05:59 05:59 Intake Total 600 Balance 600 - Physical Exam Constitutional: appears nourished, obese, uncomfortable Eyes: PERRL, anicteric sclera, EOMI Ears, Nose, Mouth, Throat: moist mucous membranes, hearing normal, ears appear normal Cardiovascular: regular rate and rhythym, No JVD, No edema Respiratory: no respiratory distress, no rales or rhonchi, reduced air movement Gastrointestinal: normoactive bowel sounds, No tenderness, No ascites Skin: warm, normal color, No mottled Musculoskeletal: normal joint ROM, no joint effusions, generalized weakness Neurologic: AAOx3 Psychiatric: not anxious, not encephalopathic, thought process linear ICD10 Worksheet Patient Problems: Problems Problem Status Onset Bronchitis Acute Vomiting Acute Seizure Acute Abdominal pain Acute Acute bronchitis Acute Chest pain Acute Gastritis Acute Anxiety Acute Alcohol withdrawal Acute Alcohol dependence Acute
[2018-08-24] MEDS: AMOX/CLAVULANATE 500/125 MG TAB PO SCH ×2 (15:58→19:53)
[2018-08-24] MEDS: THIAMINE HCL 100 MG TAB PO SCH (23:28)
[2018-08-24] MEDS: traZODone 50 MG TAB PO PRN (23:29)
[2018-08-25] MEDS: oxyCODONE IR 5 MG TAB PO PRN (04:34)
[2018-08-25] MEDS: LORazepam 1 MG TAB PO PRN (04:34)
[2018-08-25] MEDS: DIAZEPAM 5 MG TAB PO PRN (05:38)
[2018-08-25] MEDS: FOLIC ACID 1 MG TAB PO SCH (09:21)
[2018-08-25] MEDS: GABAPENTIN 300 MG CAP PO SCH (09:21)
[2018-08-25] MEDS: AMOX/CLAVULANATE 500/125 MG TAB PO SCH (09:22)
[2018-08-25] MEDS: SERTRALINE HCL 50 MG TAB PO SCH (09:22)
[2018-08-25] MEDS: MULTIVITAMINS 1 EACH TAB PO SCH (09:22)
[2018-08-25] MEDS: RIVAROXABAN 20 MG TAB PO SCH (09:22)
[2018-08-25] MEDS: CYCLOBENZAPRINE 10 MG TAB PO SCH (09:22)
[2018-08-25] MEDS: PREGABALIN 150 MG CAP PO SCH (09:22)
[2018-08-25] MEDS: THIAMINE HCL 100 MG TAB PO SCH (09:28)
[2018-08-25] MEDS ORDERED: oxyCODONE IR 5 MG TAB PO ONE (09:47)
[2018-08-25 11:53] VITALS: BP 148/96
--- NOTE | 2018-08-25 12:20 | ASMTCMCOM ---
CM Note CM Note Notes: Met with pt re; dc poc. Pt will dc home, rxs brought up from [facility] to pt's room. 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 Confirmation # [id number]. DC Plan: Independent Date Signed: 08/25/2018 12:19 PM Electronically Signed By:Agata Navas RN
--- NOTE | 2018-08-25 12:32 | ASMTCMCOM ---
CM Note CM Note Notes: Spoke at length with patient about his circumstances. Patient states the barrier to getting to [place] is money and that he cannot leave his dad here. They would like to travel to [place] together taking his dad's therapy dog as well. Patient has been talking to the [facility] [employer] in [place] about a job. 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 They are aware he is an alcoholic but will employ him as long as he is staying sober. Patient also contacted the Hotline number and has a sponsor Last who came to visit him during this stay. They will go to meetings together and he will be a contact if patient is tempted to drink. Patient also wants to participate in a PTSD support group and says he would [facility] individually. BARRETT is working on locating these resources. Patient has already called [facility] for his broken tooth and they will see him tomorrow.Patient would like to take a Medicaid taxi ([employer]mo) directly to [facility] when he is discharged tomorrow. If that cannot be arranged he would like a bus pass.Patient has a follow up appointment with Ashley Yoon for Monday, August 27, 2018 at 11:25 am. Patient hopes to save enough money to rent a van to move himself and his dad to [place]. He is encouraged to start Zoloft and hopes it will help him with his anxiety.Patient understands he needs to use outpatient community supports as much as possible to prevent getting sick and returning to the hospital. Patient did say the kindness here at the hospital has helped him get clarity. He knows he is at a crossroads with having another chance to turn his life around. [facility] and that he needs to have his [facility] prescriber follow him for any anxiety medications. BARRETT will follow. Date Signed: 08/25/2018 12:31 PM Electronically Signed By:Corry Schmidt LCSW
--- NOTE | 2018-08-25 13:44 | GDS ---
[f rep st] DISCHARGE SUMMARY DISCHARGE DIAGNOSES: 1. Benzodiazepine withdrawal. 2. Alcohol abuse. 3. Broken tooth. 4. Posttraumatic stress disorder with severe anxiety. 5. Recent deep venous thrombosis with pulmonary embolism. 6. Neuropathy. PHYSICAL EXAM: GENERAL: The patient is alert. VITAL SIGNS: Afebrile at 36.8, pulse is 116, blood pressure is 148/96, respiratory rate 16, saturating 95% on room air. I have seen and evaluated the p atient on the day of discharge. HOSPITAL COURSE: The patient is a 32-year-old male who presented to the hospital with complaints of benzodiazepine withdrawal. He was evaluated and diagnosed with: 1. Benzodiazepine withdrawal. During this hospitalization, the patient's Ativan was titrated down. He has been discharged on 1 mg of Ativan q.12 hours. He has contracted to continue this titration a nd the attempts to titrate off benzodiazepine altogether. I have had a lengthy discussion with him, as well as Case Management. He will follow with his primary care physician. 2. Broken tooth. This is a new diagnosis. He will get this taken care of as soon as possible today at the time of disposition. 3. History of severe anxiety with PTSD. We have started the patient on Zoloft here during this hosp italization. It is recommended that he continue medical management in the outpatient setting with th e attempt to refrain from future benzodiazepine use. 4. Recent DVT with PE. He did not complete his course of Xarelto. He will continue on this at the time of disposition. 5. Neuropathy. Gabapentin and Lyrica are continued. 6. Disposition. The patient was going to remain in the hospital setting to taper off all benzodiaze pines; however, with this new left broken tooth, he will be discharged to the outpatient setting to have his tooth extracted and dealt with. I have provided him a prescription for 1 mg of Ativan q.12 hours #14 until he is seen by his primary care provider. I have instructed him to continue to reduce his use of Ativan in the outpatient setting and continue to taper off. He is in agreement with this plan. FOLLOWUP: Will be with his primary care physician. PENDING STUDIES: There are no pending studies. DISCHARGE MEDICATIONS: Please refer to EMR form. Again, I have provided the patient a prescription for Ativan 1 mg #14, as well as Zoloft 50 mg #30. I have spent greater than 35 minutes in the care, coordination, and management of the patient's dispo sition with outpatient arrangement. /[id number]/MODL
--- NOTE | 2018-08-26 13:40 | CPEKG ---
Test Reason : OPEN Blood Pressure : / mmHG Vent. Rate : 137 BPM Atrial Rate : 138 BPM P-R Int : 131 ms QRS Dur : 078 ms QT Int : 281 ms P-R-T Axes : 051 084 007 degrees QTc Int : 425 ms Sinus tachycardia Probable left atrial enlargement Confirmed by Ashly Rm ([id number]) on 08/26/2018 1:40:32 PM Referred By: PHYSICIAN ED Confirmed By:Ashly Rm
== END 2018-08-25 12:14 | disposition home or self-care (01) | DRG 775 ==
LOC: CED 17:25 → INTOOBSV 20:27 → F2N 08-22 00:12 → F3E 08-22 12:46 → OBSVTOIN 08-22 15:36
PROVIDERS: ADMIT Family Medicine; ATTEND Family Medicine
DX: F19.230 Other psychoactive substance dependence with withdrawal, uncomplicated (principal); F10.20 Alcohol dependence, uncomplicated; F43.10 Post-traumatic stress disorder, unspecified; F41.9 Anxiety disorder, unspecified; G62.9 Polyneuropathy, unspecified; S02.5XXA Fracture of tooth (traumatic), initial encounter for closed fracture; X58.XXXA Exposure to other specified factors, initial encounter; F17.210 Nicotine dependence, cigarettes, uncomplicated; Z87.820 Personal history of traumatic brain injury; Z86.718 Personal history of other venous thrombosis and embolism; Z86.711 Personal history of pulmonary embolism
CPT/HCPCS: 80053-ER; 80307-PO; 85025-QW-ER; 96361-ER; 96374-ER; 96376-ER; 99291-ER; G0480; J1650; J2060; J2405

== ENCOUNTER 2018-08-29 11:42 | Inpatient (IN) | payer MEDICAID ==
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
[2018-08-29] MEDS ORDERED: LORazepam 1 MG TAB PO PRN (12:06)
[2018-08-29] MEDS: LORazepam 2 MG/ML INJ IVP PRN ×6 (12:16→20:06)
[2018-08-29 13:35] LABS: PLATELET COUNT 385 10^3/uL (150-400)
[2018-08-29] MEDS ORDERED: ONDANSETRON 4 MG/2 ML VIAL IVP PRN (14:18)
[2018-08-29] MEDS ORDERED: FLUMAZENIL 0.5 MG/5 ML MDV IVP PRN (14:18)
[2018-08-29] MEDS ORDERED: HYDROmorphONE/DILAUDID 1 MG/ML INJ IVP PRN (14:18)
[2018-08-29] MEDS ORDERED: oxyCODONE IR 5 MG TAB PO PRN (14:18)
[2018-08-29] MEDS ORDERED: HYDROCODONE/APAP 5/325 TAB PO PRN (14:18)
[2018-08-29] MEDS ORDERED: ONDANSETRON DISINTEGRATING 4 MG TAB PO PRN (14:18)
[2018-08-29] MEDS ORDERED: PROMETHAZINE HCL 25 MG/ML INJ IVP PRN (14:18)
[2018-08-29] MEDS ORDERED: NS 1,000 ML IV SCH (14:30)
[2018-08-29] MEDS ORDERED: ALTEPLASE 2 MG VIAL IVP PRN (14:46)
--- NOTE | 2018-08-29 14:52 | PDGENHP ---
History and Physical - Chief Complaint seizure, benzo w/d - History of Present Illness 32 yo M well known to this hospital presenting s/p seizure from suspected benzo/ alcohol withdrawal. Patient recently hospitalized for same and discharged 08/25 with an rx for benzo taper. Apparently he took his entire taper over the following 3 days (he was discharged with a plan to take 1 tab of 1mg ativan BID x 7 days), last night he states he had a shot of alcohol and this morning had a seizure. He states he was taking his ativan quicker than prescribed because he was feeling poorly, he states he has not been drinking, but then admits that he did drink last night. He states he has not eaten x several days as he has been feeling too ill. At the time of my evaluation he is tremulous and anxious appearing but is coherent and appears to be able to provide reliable history. History Information - Allergies/Home Medication List Allergies/Adverse Reactions: bee pollen Allergy (Severe, Verified 08/29/18 11:48) Dyspnea Home Medications: Albuterol [Proventil Inhaler HFA (*)] 2 puffs IH Q4 PRN 06/07/18 [Last Taken 08:00] Cyclobenzaprine [Flexeril 10 MG (*)] 10 mg PO TID 08/22/18 [Last Taken Unknown] Rivaroxaban [Xarelto] 20 mg PO DAILY 08/22/18 [Last Taken Unknown] clonIDINE [Catapres (*)] 0.1 mg PO BID PRN 08/22/18 [Last Taken Unknown] I have personally reviewed and updated: family history, medical history, social history, surgical history - Past Medical History psychiatric history (anxiety), seizures Additional medical history: Alcoholism with withdraw seizures. Polypharmacy overdose 2014, benzodiazepine dependence. Anxiety Disorder (therapist Vreo Cordova). Neuropathy. Chronic pain. Frequent presentations for alcohol related injuries. Traumatic brain injury - Surgical History Reports: no pertinent surgical hx Additional surgical history: X lap as a child. Right leg surgery. Rotator cuff repair - Family History Additional family history: No seizure disorder or Suicide attempt. Multiple family members with alcohol and polysubstance abuse disorder. - Social History Smoking Status: Heavy smoker Alcohol Use: Heavy Drug Use: Other (benzo abuse) Additional social history: Independent in his ADLs comma the patient lives with his father. 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 Otterology Review of Systems Review of Systems: ROS: 10pt was reviewed & negative except for what was stated in HPI & below Physical Exam Physical Exam: Temp Pulse Resp BP Pulse Ox 36.5 C 121 H 20 139/88 H 95 08/29/18 13:35 08/29/18 13:35 08/29/18 13:35 08/29/18 13:35 08/29/18 13:35 O2 (L/minute) 2 Constitutional: chronically ill appearing, obese Eyes: PERRL, anicteric sclera Ears, Nose, Mouth, Throat: moist mucous membranes, hearing normal Cardiovascular: no murmur, rub, or gallop, tachycardia, No edema Respiratory: no respiratory distress, no rales or rhonchi Gastrointestinal: normoactive bowel sounds, soft, non-tender abdomen Genitourinary: no bladder tenderness Skin: warm, normal color Musculoskeletal: no muscle tenderness Neurologic: AAOx3, other (tremulous) Psychiatric: interacting appropriately Lab Data & Imaging Review 08/29/18 12:12 08/29/18 12:12 WBC 9.01 10^3/uL (3.80-9.50) 08/29/18 12:12 RBC 5.49 10^6/uL (4.40-6.38) 08/29/18 12:12 Hgb 16.3 g/dL (13.7-17.5) 08/29/18 12:12 Hct 47.6 % (40.0-51.0) 08/29/18 12:12 MCV 86.7 fL (81.5-99.8) 08/29/18 12:12 MCH 29.7 pg (27.9-34.1) 08/29/18 12:12 MCHC 34.2 g/dL (32.4-36.7) 08/29/18 12:12 RDW 12.9 % (11.5-15.2) 08/29/18 12:12 Plt Count 385 10^3/uL (150-400) 08/29/18 12:12 MPV 11.3 fL (8.7-11.7) 08/29/18 12:12 Neut % (Auto) 70.1 % (39.3-74.2) 08/29/18 12:12 Lymph % (Auto) 20.3 % (15.0-45.0) 08/29/18 12:12 Vilas % (Auto) 6.3 % (4.5-13.0) 08/29/18 12:12 Eos % (Auto) 2.7 % (0.6-7.6) 08/29/18 12:12 Baso % (Auto) 0.4 % (0.3-1.7) 08/29/18 12:12 Nucleat RBC Rel Count 0.0 % (0.0-0.2) 08/29/18 12:12 Absolute Neuts (auto) 6.31 10^3/uL (1.70-6.50) 08/29/18 12:12 Absolute Lymphs (auto) 1.83 10^3/uL (1.00-3.00) 08/29/18 12:12 Absolute Monos (auto) 0.57 10^3/uL (0.30-0.80) 08/29/18 12:12 Absolute Eos (auto) 0.24 10^3/uL (0.03-0.40) 08/29/18 12:12 Absolute Basos (auto) 0.04 10^3/uL (0.02-0.10) 08/29/18 12:12 Absolute Nucleated RBC 0.00 10^3/uL (0-0.01) 08/29/18 12:12 Immature Gran % 0.2 % (0.0-1.1) 08/29/18 12:12 Immature Gran # 0.02 10^3/uL (0.00-0.10) 08/29/18 12:12 Sodium 139 mEq/L (135-145) 08/29/18 12:12 Potassium 5.3 mEq/L (3.5-5.2) H 08/29/18 12:12 Chloride 107 mEq/L (97-110) 08/29/18 12:12 Carbon Dioxide 18 mEq/l (22-31) L 08/29/18 12:12 Anion Gap 14 mEq/L (6-14) 08/29/18 12:12 BUN 10 mg/dL (7-23) 08/29/18 12:12 Creatinine 0.8 mg/dL (0.7-1.3) 08/29/18 12:12 Estimated GFR > 60 08/29/18 12:12 Glucose 86 mg/dL (70-100) 08/29/18 12:12 Calcium 9.7 mg/dL (8.5-10.4) 08/29/18 12:12 Total Bilirubin 1.0 mg/dL (0.1-1.4) 08/29/18 12:12 AST 44 IU/L (17-59) 08/29/18 12:12 ALT 48 IU/L (21-72) 08/29/18 12:12 Alkaline Phosphatase 118 IU/L (38-126) 08/29/18 12:12 Total Protein 7.9 g/dL (6.3-8.2) 08/29/18 12:12 Albumin 4.7 g/dL (3.5-5.0) 08/29/18 12:12 Lipase 88 IU/L (23-300) 08/29/18 12:12 Specimen Hemolysis 158 08/29/18 12:12 Assessment & Plan Assessment: Alcohol dependence (Acute) Alcohol withdrawal (Acute) Benzodiazepine withdrawal (Acute) 32 yo M with hx of alcohol and benzo abuse and withdrawal presenting with withdrawal and withdrawal seizure # alcohol/benzo withdrawal and withdrawal seizure: seizure occurred prior to admission, hx of multiple admits for the same in the past. In the setting of drinking last night and taking 14mg of ativan over the last 3 days. Plan to admit to ICU, monitor on CIWA protocol, will attempt to avoid precedex which he has a history of manipulating to get in the past. # hyperkalemia: mildly elevated K on arrival of 5.3, IVF and monitor # anxiety/PTSD: continue home medications, contributes to his abuse of benzos/ alcohol # IP status, high risk requiring ICU care Patient new to my care. Old records reviewed and summarized as above. Care plan reviewed with ER doctor as above.
[2018-08-29] MEDS: THIAMINE HCL 100 MG TAB PO SCH (15:16)
--- NOTE | 2018-08-29 16:37 | PDMN ---
Medical Necessity Medical necessity: [facility] [place] M595 Substance-Related Disorders, 2 days: 32 yo w/ etoh/ benzo w/d w/ seizure w/ hx multi admits for same in past. Admit IP status in ICU on CIWA protocol. Pt reports taking 1mg Ativan over last 3 days and etoh consumption last night. Pt w/ s/sx w/d w/ tremors and anxiety, tachy 130s. K= 5.3. IVF. Pt high risk. Anticipate>2MN for ongoing monitoring and tx of the above.
[2018-08-29] MEDS ORDERED: HALOPERIDOL LACT 5 MG/ML INJ IVP PRN (18:56)
[2018-08-30] MEDS ORDERED: traZODone 100 MG TAB PO ONE (00:30)
[2018-08-30] MEDS: LORazepam 2 MG/ML INJ IVP PRN ×2 (00:30→06:28)
[2018-08-30 06:54] LABS: PLATELET COUNT 341 10^3/uL (150-400)
[2018-08-30] MEDS: RIVAROXABAN 20 MG TAB PO SCH (08:09)
[2018-08-30] MEDS: SERTRALINE HCL 50 MG TAB PO SCH (08:09)
[2018-08-30] MEDS: FOLIC ACID 1 MG TAB PO SCH (08:10)
[2018-08-30] MEDS: CYCLOBENZAPRINE 10 MG TAB PO SCH ×3 (08:10→21:15)
[2018-08-30] MEDS: THIAMINE HCL 100 MG TAB PO SCH (08:10)
[2018-08-30] MEDS: GABAPENTIN 300 MG CAP PO SCH ×3 (08:10→21:14)
--- NOTE | 2018-08-30 08:33 | CPEKG ---
Test Reason : OPEN Blood Pressure : / mmHG Vent. Rate : 092 BPM Atrial Rate : 091 BPM P-R Int : 143 ms QRS Dur : 084 ms QT Int : 342 ms P-R-T Axes : 046 082 049 degrees QTc Int : 424 ms Sinus rhythm Probable anteroseptal infarct, old Confirmed by Doyle Mock ([id number]) on 08/30/2018 8:32:30 AM Referred By: Anna Mahoney Confirmed By:Doyle Mock
[2018-08-30] MEDS ORDERED: GABAPENTIN 300 MG CAP PO SCH (09:00)
[2018-08-30] MEDS ORDERED: PREGABALIN 150 MG CAP PO SCH ×2 (09:00→10:35)
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
--- NOTE | 2018-08-30 11:33 | ASMTCMCOM ---
CM Note CM Note Notes: CM met with pt and chart reviewed (See dc note from 08/25/18 for more info). Pt is a 32 yo M who presents with benzodiazepine withdrawl. Pt reports he was trying to wean himself off but because he has such high tolerance he needed to "take more". Pt was staying with his dad and said that he felt terrible so he took a shot of ETOH and was still feeling terrible so he came into the ED with the goal of weaning off benzodiazepines. Pt reports his ultimate goal is getting completely off ETOH and Benzos and maintaining sobriety, CM to continue to follow and support pt on path to recovery. Pt reports he rescheduled his appt for [facility] in [place] for the , today; CM notified clinic pt was admitted. Pt reports he has his move to [place], [place] scheduled for the of next month. Pt reports he has been participating in AA and says that he has been in contact with his sponsor, Last. CM provided education about NA. Pt was appreciative of this information and he says that he plans on continuing with working the steps and engaging with his sponsor. CM to follow. Plan: TBD Date Signed: 08/30/2018 09:27 AM Electronically Signed By:AMANUEL Cardona
[2018-08-30] MEDS ORDERED: CYCLOBENZAPRINE 10 MG TAB PO SCH (16:43)
--- NOTE | 2018-08-30 17:53 | HOSPPROG ---
Hospitalist Progress Note Assessment/Plan: 32 yo M with hx of alcohol and benzo abuse and withdrawal presenting with withdrawal and possible withdrawal seizure. This is his 8th inpatient admission in the last 12 months. #Benzodiazepine withdrawal: Appears to be mild. - Schedule librium 25mg TID - Stopped IV ativan. Avoid IV benzos (drug seeking/manipulative in past) #? seizure: Unclear if truly seized. If he did, this was likely r/t benzo withdrawal and not alcohol withdrawal. Monitor. #Benzodiazpine and EtOH abuse in setting of anxiety, PTSD, and TBI - He has numerous admissions for this - I have consulted Joanna Patino of psychiatry who will also speak with Agata Barraza (she last saw 08/16/2018). Appreciate assistance in medication adjustments and help in identifying a discharge strategy. #Hyperkalemia: Resolved. VTE ppx: Code: full Dispo: Remain inpatient, transfer to med/surg. ADD pending clinical course Subjective: Anxious. Otherwise no complaints. Objective: Vital Signs Temp Pulse Resp BP Pulse Ox 36.6 C 114 H 16 133/94 H 97 08/30/18 15:13 08/30/18 15:13 08/30/18 15:13 08/30/18 15:13 08/30/18 15:13 Laboratory Results 08/30/18 06:40 08/30/18 06:40 08/29/18 08/30/18 08/31/18 05:59 05:59 05:59 Intake Total 3112 950 Output Total 520 Balance 2592 950 - Physical Exam Constitutional: no apparent distress, appears nourished, not in pain Eyes: PERRL, anicteric sclera, EOMI Ears, Nose, Mouth, Throat: moist mucous membranes, hearing normal, ears appear normal, no oral mucosal ulcers Cardiovascular: regular rate and rhythym, no murmur, rub, or gallop, No edema Respiratory: no respiratory distress, no rales or rhonchi, clear to auscultation Gastrointestinal: normoactive bowel sounds, soft, non-tender abdomen, no palpable masses Genitourinary: no bladder fullness, no bladder tenderness, no renal bruits Skin: no rashes or abrasions, no fluctuance, no induration Musculoskeletal: full muscle strength, no muscle tenderness, normal joint ROM Neurologic: AAOx3, sensation intact bilaterally Psychiatric: interacting appropriately, anxious ICD10 Worksheet Patient Problems: Problems Problem Status Onset Alcohol dependence Acute Alcohol withdrawal Acute Benzodiazepine withdrawal Acute Abdominal pain Acute Acute bronchitis Acute Anxiety Acute Bronchitis Acute Chest pain Acute Gastritis Acute Seizure Acute Vomiting Acute
[2018-08-30] MEDS ORDERED: traZODone 100 MG TAB PO PRN (20:38)
[2018-08-30] MEDS: PREGABALIN 100 MG CAP PO SCH (21:13)
[2018-08-30] MEDS: chlordiazePOXIDE 25 MG CAP PO SCH (21:14)
[2018-08-30] MEDS: ACETAMINOPHEN 325 MG TAB PO PRN (21:14)
[2018-08-31] MEDS: GABAPENTIN 300 MG CAP PO SCH (09:32)
[2018-08-31] MEDS: RIVAROXABAN 20 MG TAB PO SCH (09:32)
[2018-08-31] MEDS: ACETAMINOPHEN 325 MG TAB PO PRN (09:33)
[2018-08-31] MEDS: CYCLOBENZAPRINE 10 MG TAB PO SCH (09:33)
[2018-08-31] MEDS: THIAMINE HCL 100 MG TAB PO SCH (09:33)
[2018-08-31] MEDS: SERTRALINE HCL 50 MG TAB PO SCH (09:33)
[2018-08-31] MEDS: PREGABALIN 100 MG CAP PO SCH (09:33)
[2018-08-31] MEDS: chlordiazePOXIDE 25 MG CAP PO SCH (09:33)
[2018-08-31] MEDS: FOLIC ACID 1 MG TAB PO SCH (09:33)
--- NOTE | 2018-08-31 13:40 | PDDCSUM ---
Discharge Summary Discharge Summary: Date of Admission: 08/29/2018 Date of Discharge: 08/31/2018 Studies/Procedures: PICC placement (now removed) Discharge Diagnoses: 1. Benzodiazepine withdrawal with possible seizure 2. Benzodiazepine use 3. EtOH abuse 4. PTSD, anxiety, TBI 5. Chronic neuropathic pain 6. 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 This is his 8th inpatient admission in the last 12 months. He was just discharged approximately 5 days ago and took all of his ativan in 2 days (he was supposed to be on a 7 day taper). He was admitted to the ICU initially as he has required significant benzodiazepines and precedex in the past. However, he only appeared to be in mild withdrawal. He was transitioned to librium and did well. He was stable and safe for discharge. He is motivated to quit drinking. I offered to have our psychiatry/ behavioral health team meet with patient but he was eager to discharge. He plans to go to [place] to live with his brother and mother. [facility] I discharged him with a 7 day librium taper. I also refilled his gabapentin and clonidine. We have weaned him off of lyrica. Medications: Please refer to EMR for complete list. We made the following changes: 1. Discontinued valium and ativan 2. Started librium 25mg TID x3 days, then 10mg TID x4 days 3. Refilled gabapentin 600mg TID 4. Discontinued lyrica 5. Refilled flexeril 10mg TID and clonidine 0.1mg qhs PRN Follow Up Plan: [facility] plans [facility] with [facility] [place]. Physical Exam: Vital reviewed, remains intermittently mildly tachycardic. Alert and oriented, tachycardic with regular rhythm and no murmur, lungs clear, abdomen soft, no rashes, no edema.
[2018-08-31 14:49] VITALS: BP 134/95
== END 2018-08-31 15:33 | disposition home or self-care (01) | DRG 775 ==
LOC: CED 11:42 → CEDHOLD 12:14 → F2N 14:05 → F1N 08-30 13:49
PROVIDERS: ADMIT Internal Medicine; ATTEND Internal Medicine
PROC: 02H633Z Insertion of Infusion Device into Right Atrium, Percutaneous Approach (ICD-10-PCS; principal; 2018-08-29)
DX: F15.23 Other stimulant dependence with withdrawal (principal); F10.239 Alcohol dependence with withdrawal, unspecified; E87.5 Hyperkalemia; F43.10 Post-traumatic stress disorder, unspecified; F41.9 Anxiety disorder, unspecified; G89.29 Other chronic pain; Z79.01 Long term (current) use of anticoagulants; Z87.820 Personal history of traumatic brain injury; Z86.711 Personal history of pulmonary embolism; Z86.718 Personal history of other venous thrombosis and embolism; Z72.0 Tobacco use
CPT/HCPCS: 96374-ER; 99285-ER; C1751; J1630; J2060

== ENCOUNTER 2018-09-08 10:47 | Emergency (ER) | payer MEDICAID ==
[2018-09-08] MEDS ORDERED: chlordiazePOXIDE 25 MG CAP PO ONE (11:05)
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
[2018-09-08] MEDS ORDERED: ONDANSETRON DISINTEGRATING 4 MG TAB ONE (11:24)
[2018-09-08 12:03] VITALS: BP 134/82
== END 2018-09-08 12:02 | disposition home or self-care (01) ==
LOC: CED 10:47
DX: F19.230 Other psychoactive substance dependence with withdrawal, uncomplicated (principal)
CPT/HCPCS: 99284-ER

== ENCOUNTER 2018-10-05 18:21 | Observation (INO) | payer MEDICAID ==
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
[2018-10-05] MEDS ORDERED: ONDANSETRON 4 MG/2 ML VIAL IVP ONE ×2 (19:00→20:46)
[2018-10-05] MEDS ORDERED: NS 1,000 ML IV ONE (19:00)
[2018-10-05] MEDS ORDERED: IOPAMIDOL (ISOVUE-300) 100 ML BTL ONE (19:16)
--- NOTE | 2018-10-05 19:45 | CPEKG ---
Test Reason : OPEN Blood Pressure : / mmHG Vent. Rate : 078 BPM Atrial Rate : 073 BPM P-R Int : 141 ms QRS Dur : 084 ms QT Int : 363 ms P-R-T Axes : 041 066 046 degrees QTc Int : 414 ms Sinus rhythm Probable left atrial enlargement ST elev, probable normal early repol pattern Confirmed by Clarita Lovell [id number] on 10/05/2018 7:44:49 PM Referred By: Clarita Lovell Confirmed By:Clarita Lovell
[2018-10-05] MEDS ORDERED: ONDANSETRON 4 MG/2 ML VIAL ONE (20:46)
[2018-10-05] MEDS ORDERED: HYDROmorphONE/DILAUDID 2 MG/ML INJ IVP ONE (20:46)
[2018-10-05] MEDS ORDERED: HYDROmorphONE/DILAUDID 1 MG/ML INJ ONE (20:46)
[2018-10-05 21:06] LABS: INR 0.98 (0.83-1.16); PROTIME(PATIENT) 12.6 SEC (12.0-15.0)
[2018-10-05] MEDS ORDERED: ONDANSETRON DISINTEGRATING 4 MG TAB PO PRN (23:31)
[2018-10-05] MEDS ORDERED: ONDANSETRON 4 MG/2 ML VIAL IVP PRN (23:31)
[2018-10-05] MEDS ORDERED: ACETAMINOPHEN 325 MG TAB PO PRN (23:31)
[2018-10-05] MEDS ORDERED: LR 1,000 ML IV SCH (23:45)
[2018-10-05] MEDS ORDERED: PROMETHAZINE HCL 25 MG/ML INJ IVP PRN (23:47)
[2018-10-05] MEDS ORDERED: traZODone 50 MG TAB PO PRN (23:47)
[2018-10-05] MEDS ORDERED: PREGABALIN 150 MG CAP PO ONE (23:49)
--- NOTE | 2018-10-06 00:04 | PDGENHP ---
History and Physical - Chief Complaint Nausea, abdominal pain - History of Present Illness 32 yo M w/ hx of depression, PTSD, ETOH/BZD use disorders, DVT, and neuropathy presents with complaints of abdominal pain and nausea. The patient has a long history of ETOH and BZD use disorders. He has been hospitalized numerous times here and at other nearby facilities for complications of this. He often displays clearly drug-seeking behavior as it pertains to BZDs and Precedex. He was most recently admitted at [facility] from 09/23-09/27 for treatment of ETOH w/d. During this admission he was treated with Precedex and BZDs. He was discharged from [facility] with a one week taper of clonazepam. Rhys tells me this taper ended on Thursday. Then, over the last two days he was been suffering form nausea, chills, body aches, abdominal pain, and headache. He presented to the [facility] for evaluation as a result. Evaluation at the [facility] was overall reassuring. Vital signs and laboratory work-up are within normal limits. A CT scan of the abdomen revealed no acute abnormalities. During my evaluation Rhys is calm and cooperative. Objectively he does not appear to be in distress of withdrawal. I expressed to him that I prefer to avoid BZDs as I suspect he is mostly out of the james in terms of the very uncomfortable withdrawal symptoms. He is in agreement with this and is on board with supportive care tonight. Case discussed with Dr. Mahoney; records reviewed and summarized above. Below section is pasted from his most recent DC summary at [facility] from 09/[address] Alena Virk. "Assessment/Plan: Alcohol withdrawal - Last drink was ~2100 on 09/22. Patient with multiple hospitalizations for alcohol withdrawal. Normal CMP on admission--alcoholic hepatitis unlikely. CBC with mildly elevated WBC 10.6, which could be reactive to ETOH withdrawal--infection unlikely. Normal troponin on admission. Patient had to be maintained on precedex drip, but this was weaned off completely as of yesterday am. Scheduled Librium was also stopped. -CIWA score has been < 5 for > 24 hrs -CIWA protocol with PRN ativan only--see below -This is a challenging case in which patient has demonstrated a pattern concerning for secondary gain with sedation during hospitalizations. Discussion with PCP and Critical Care team has revealed that patient has been going to a rotation of at least 3 hospitals up to weekly for the past several months for alcohol withdrawal. There is concern for fabricating withdrawal symptoms for increased doses of benzodiazepines or increase in his precedex drip for increased sedation. This has been supported by video surveillance (which was started on admission due to concern of agitation related to withdrawal) of patient demonstrating him resting comfortably before someone entering room at which point he will demonstrate symptoms of withdrawal. -Patient is appro 114 hours out from his last drink tonight at 9pm -ready for d/c home -Patient reports that he is established with AA with a sponsor; however, patient has had multiple hospitalizations at different hospitals over the past several months for alcohol withdrawal, which makes me concerned that he may be failing outpatient rehab. CM has spoke with pt. Pt [place] appt at [place] to [place] and then he plans to enter into one of the [place] rehab programs. Pt states he is committed to sobriety. Plans to stay at his sponsor's house starting tomorrow. Benzodiazepine dependence, continuous - Pt's behavior while inpatient has historically been consistent with drug-seeking, in that he has been observed to be imitating tremulousness in the ICU in order to receive higher doses of benzodiazepine. Pt admits that with prev benzo rx's, he would run out early, then drink Etoh, then go into w/d. PDMP reviewed and excessive doses of benzos have been rx'd to patient as per below (tallied by ICU/Crit Care): Since May he has gotten the following Rx - 1 scripts for clorazepate - 2 scripts for ativan, - 2 scripts for clonazepam, - 3 scripts for librium - 9 scripts for valium These for a total of: - 90 mg of clorazepate - 24 mg of ativan - 42 mg of clonazepam - 870 mg of librium - 1874 mg of valium There is concern that patient has continually failed outpatient therapy for benzodiazepine taper, resulting in a pattern in which he takes his benzodiazepines not as prescribed and then will return to a hospital to get more benzodiazepines. With his alcohol use disorder, this puts him at a very high risk for accidental overdose as an outpatient. . Due to challenges in evaluating patient's subjective symptoms, will score based on objective findings on the CIWA protocol to avoid oversedation. Case d/w pt's PCP- Areli Mirza. Pt is no longer a candidate to receive benzos at [facility] d/t his hx of Etoh abuse/ mis-use and not taking benzos as rx'd. He has not had any benzos in the hospital for > 24 hr. Pt informed that I will given him 1 wk taper of the Klonopin 1mg but that he will no longer get any more benzos from [facility] in the future. Taper: pt to take 1 klonopin tonight 1 mg, then 1 mg BID for 2 days, then 0.5 in am and 1 tab in pm for 2 days, then 0.5 tab BID for 2 days, then stop. rx for 10 tabs total sent to his OR pharmacy. Pt states he is motivated to stay off the benzos as he knows is a problem for him. History Information - Allergies/Home Medication List Allergies/Adverse Reactions: bee pollen Allergy (Severe, Verified 10/05/18 18:29) Dyspnea Home Medications: Albuterol [Proventil Inhaler HFA (*)] 2 puffs IH Q4 PRN 06/07/18 [Last Taken 08:00] Rivaroxaban [Xarelto] 20 mg PO DAILY 08/22/18 [Last Taken Unknown] I have personally reviewed and updated: family history, medical history - Past Medical History psychiatric history (anxiety), seizures Additional medical history: Alcoholism with withdraw seizures. Polypharmacy overdose 2014, benzodiazepine dependence. Anxiety Disorder (therapist Vero Cordova). Neuropathy. Chronic pain. Frequent presentations for alcohol related injuries. Traumatic brain injury - Surgical History Reports: no pertinent surgical hx Additional surgical history: X lap as a child. Right leg surgery. Rotator cuff repair - Family History Additional family history: No seizure disorder or Suicide attempt. Multiple family members with alcohol and polysubstance abuse disorder. - Social History Smoking Status: Heavy smoker Additional social history: Independent in his ADLs comma the patient lives with his father. 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 [employer] Review of Systems Review of Systems: ROS: 10pt was reviewed & negative except for what was stated in HPI & below Physical Exam Physical Exam: Temp Pulse Resp BP Pulse Ox 36.6 C 77 18 135/98 H 96 10/05/18 23:28 10/05/18 23:28 10/05/18 23:28 10/05/18 23:28 10/05/18 23:28 Constitutional: no apparent distress, obese Eyes: PERRL, EOMI Ears, Nose, Mouth, Throat: moist mucous membranes, no oral mucosal ulcers Cardiovascular: regular rate and rhythym, no murmur, rub, or gallop Respiratory: no respiratory distress, clear to auscultation Gastrointestinal: normoactive bowel sounds, soft, non-tender abdomen Skin: warm, normal color Musculoskeletal: full muscle strength, no muscle tenderness Neurologic: AAOx3, CN II-XII Intact Psychiatric: interacting appropriately, not anxious Lab Data & Imaging Review PT 12.6 SEC (12.0-15.0) 10/05/18 19:41 INR 0.98 (0.83-1.16) 10/05/18 19:41 POC Sodium 140 mEq/L (135-145) 10/05/18 19:44 POC Potassium 3.7 mEq/L (3.3-5.0) 10/05/18 19:44 POC Chloride 103.0 mEq/L (97-110) 10/05/18 19:44 POC Total CO2 26 mEq/L (22-31) 10/05/18 19:44 POC BUN 10 mg/dL (7-23) 10/05/18 19:44 POC Creatinine 0.9 mg/dL (0.7-1.3) 10/05/18 19:44 POC Glucose 106 mg/dL (70-100) H 10/05/18 19:44 POC Calcium 9.6 mg/dL (8.5-10.4) 10/05/18 19:44 POC Total Bilirubin 0.5 mg/dL (0.1-1.4) 10/05/18 20:20 POC GGT 32 IU/L (5-65) 10/05/18 20:20 POC AST 34 IU/L (17-59) 10/05/18 20:20 POC ALT 21 IU/L (21-72) 10/05/18 20:20 POC Alk Phosphatase 103 IU/L (38-126) 10/05/18 20:20 POC Troponin I 0.03 ng/mL (0.00-0.08) 10/05/18 19:47 POC Total Protein 7.5 g/dL (6.3-8.2) 10/05/18 20:20 POC Albumin 4.2 g/dL (3.5-5.0) 10/05/18 20:20 POC Amylase 52 IU/L (30-110) 10/05/18 20:20 Carbamazepine < 3.00 ug/mL (4.0-12.0) L 10/05/18 19:41 Imaging Review: Imaging Impressions Abdomen CT 10/05/18 18:59 Impression: 1. Normal CT abdomen and pelvis, with contrast enhancement. 2. No evidence of abdominal or pelvic hemorrhage, organ laceration, or splenic laceration. Findings and recommendations discussed with Emergency Department physician, Clarita Lovell M.D., at 2039 hours, on October 05, 2018. Final report concurs with initial preliminary interpretation. Chest X-Ray 10/05/18 19:00 Impression: No acute pulmonary disease. Assessment & Plan Assessment: 32 yo M w/ hx of depression, PTSD, ETOH/BZD use disorders, DVT, and neuropathy presents with complaints of abdominal pain and nausea. Plan: 1. Nausea, abdominal pain, ALONSO - It is likely that these symptoms are due to BZD withdrawal noting clonazepam taper ended 2 days ago; however, overall his condition appears mild at this time. His VS and laboratory work-up are within normal limits, as is a CT scan of the abdomen and pelvis (personally reviewed/ interpreted). During my evaluation he is calm and not tremulous. He is agreeable to supportive care without the use of BZDs at this time as he continues to seek a path towards sobriety. - Admit for observation - mIVF, anti-emetics PRN - Avoid BZDs unless objectively deteriorating 2. ETOH, BZD use disorders - This is a long standing issue for [place] leading to numerous admissions here and at other nearby hospitals. He was most recently admitted at [facility] from 09/23-09/27 (summary of this in HPI). His last ETOH was 09/22. His last BZDs were a 7 day clonazepam taper ending on 10/03. He has visited with social workers through the [place] and is considering inpatient treatment options. - Continue to encourage inpatient treatment 3. Depression, PTSD, TBI - Clearly driving the majority of his issues. He is calm, cooperative, and denying suicidal ideation during my evaluation. - Continue home medications pending reconciliation 4. DVT/PE - Diagnosed 07/06, on Xarelto. - Continue Xarelto, can likely discontinue in the next few months 5. Chronic neuropathic pain - Most likely related to ETOH hx. - Continue Lyrica Diet - Regular Code - Full Ppx - SCDs Dispo - Admit under observation status
[2018-10-06 05:11] LABS: PLATELET COUNT 238 10^3/uL (150-400)
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
[2018-10-06] MEDS ORDERED: CYCLOBENZAPRINE 10 MG TAB PO PRN (10:37)
[2018-10-06] MEDS ORDERED: SERTRALINE HCL 50 MG TAB PO SCH (10:45)
[2018-10-06] MEDS ORDERED: PREGABALIN 150 MG CAP PO SCH (10:45)
[2018-10-06] MEDS ORDERED: GABAPENTIN 300 MG CAP PO SCH (11:00)
[2018-10-06] MEDS ORDERED: ALBUTEROL 60 PUFFS/8 GM MDI IH PRN (11:18)
--- NOTE | 2018-10-06 14:59 | HOSPPROG ---
Hospitalist Progress Note Assessment/Plan: #Nausea/abd pain: CT and labs normal. PRN Zofran #Etoh/Benzo dependence #Depression/PTSD/TBI: [facility] #DVT/PE: Jun 2018. Kathleen #Neuropathic pain: Lily DC today [facility] Subjective: nausea. No vomiting Objective: Vital Signs Temp Pulse Resp BP Pulse Ox 36.5 C 87 18 140/87 H 93 10/06/18 11:30 10/06/18 11:30 10/06/18 11:30 10/06/18 11:30 10/06/18 11:30 Laboratory Results 10/06/18 04:53 10/06/18 04:53 10/05/18 10/06/18 10/07/18 05:59 05:59 05:59 Intake Total 2450 Balance 2450 PT 12.6 SEC (12.0-15.0) 10/05/18 19:41 INR 0.98 (0.83-1.16) 10/05/18 19:41 - Time Spent With Patient Time Spent with Patient: greater than 35 minutes Time Spent with Patient: Greater than 35 minutes spent on this patients care, greater than 50% of time spent counseling, educating, and coordinating care regarding the above mentioned plan. - Physical Exam Constitutional: no apparent distress Eyes: PERRL Ears, Nose, Mouth, Throat: moist mucous membranes Cardiovascular: regular rate and rhythym Respiratory: no respiratory distress Gastrointestinal: normoactive bowel sounds, soft, non-tender abdomen Genitourinary: no bladder fullness Skin: warm Musculoskeletal: full muscle strength Neurologic: AAOx3, CN II-XII Intact ICD10 Worksheet Patient Problems: Problems Problem Status Onset Benzodiazepine withdrawal Acute Vomiting Acute Abdominal pain Acute Acute bronchitis Acute Alcohol dependence Acute Alcohol withdrawal Acute Anxiety Acute Bronchitis Acute Chest pain Acute Gastritis Acute Seizure Acute
[2018-10-06 15:14] VITALS: BP 128/63
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
--- NOTE | 2018-10-06 16:05 | ASMTCMCOM ---
CM Note CM Note Notes: Reviewed chart, pt admitted for benzo withdrawl. Pt has a significant history of addiction. CM met with pt, is willing to receive a call from [facility]. States he has a very good sponser through [facility]. He has been sober for 17 days. CM congratulated pt on good work. BARRETT arranged for Medicaid transport, confirmation #[id number] DC Plan: Independent Date Signed: 10/06/2018 04:04 PM Electronically Signed By:Agata Navas RN
--- NOTE | 2018-10-06 16:55 | GDS ---
[f rep st] DISCHARGE SUMMARY DISCHARGE DIAGNOSIS: 1. Depression. 2. Post-traumatic stress disorder. 3. ETO/benzo use disorder. 4. Deep venous thrombosis/pulmonary embolus. 5. Peripheral neuropathy. HISTORY OF PRESENT ILLNESS: A 32-year-old male with depression/PTSD, ETO/benzo use disorder, present s with complaints of abdominal pain and nausea. He has been hospitalized numerous times here and oth er nearby facilities for complications of alcohol and benzo use. He often displays drug-seeking beha vior, specifically to benzos and Precedex. He was admitted to [facility] 09/23 through 09/27 for treatment of alcohol withdrawal. He was discharged with 1 week taper of clonazepam. Over the last couple days, he has been having nausea, chills, body aches, and abdominal pain. He was seen at [facility], and no subjective abnormalities were found with a normal CT abdomen/pelvis. Labs within normal. HOSPITAL COURSE BY PROBLEM: 1. Nausea/abdominal pain: May be due to benzo withdrawal. However, he is currently without tremors and other symptoms. We will try to provide him with p.r.n. Zofran at home. Alcohol/benzo use disor ursula. This is longstanding. He is working through social work at the [facility] and is considering inpatient options. 2. Depression/PTSD/TBI. Continue is home medications. 3. DVT/PE, diagnosed in June 2018 on Xarelto. 4. Chronic neuropathic pain on Lyrica. DISPOSITION: Patient is stable for discharge home. Encouraged to drink fluids. NEW MEDICATIONS: Zofran. Refilled gabapentin. [facility]: [facility]. [facility] 2. PCP. /[id number]/MODL
[2018-10-06] MEDS ORDERED: traZODone 100 MG TAB PO SCH (21:00)
== END 2018-10-06 16:34 | disposition home or self-care (01) ==
LOC: CED 18:21 → CEDHOLD 20:56 → INTOOBSV 20:56 → F3E 23:24
PROVIDERS: ADMIT Internal Medicine; ATTEND Internal Medicine
DX: R11.2 Nausea with vomiting, unspecified (principal); R10.12 Left upper quadrant pain; F15.21 Other stimulant dependence, in remission; F10.21 Alcohol dependence, in remission; F43.10 Post-traumatic stress disorder, unspecified; Z79.01 Long term (current) use of anticoagulants; Z86.711 Personal history of pulmonary embolism; Z86.718 Personal history of other venous thrombosis and embolism; G62.9 Polyneuropathy, unspecified; F32.9 Major depressive disorder, single episode, unspecified; F17.210 Nicotine dependence, cigarettes, uncomplicated
CPT/HCPCS: 71046; 74177; 93005; 96361; 96374; 96375; 96376; 99285; G0378; 80048-ER; 80076-ER; 82150-ER; 84484-ER; 85025-QW-ER; 85379-QW-ER; J1170; J1200; J2405; Q9967

== ENCOUNTER 2018-10-09 19:21 | Emergency (ER) | payer MEDICAID ==
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
[2018-10-09] MEDS ORDERED: NS 1,000 ML IV ONE (20:05)
[2018-10-09] MEDS ORDERED: ONDANSETRON 4 MG/2 ML VIAL IVP ONE (20:05)
--- NOTE | 2018-10-09 20:37 | CPEKG ---
Test Reason : OPEN Blood Pressure : / mmHG Vent. Rate : 072 BPM Atrial Rate : 072 BPM P-R Int : 137 ms QRS Dur : 087 ms QT Int : 353 ms P-R-T Axes : 003 052 031 degrees QTc Int : 387 ms Sinus rhythm Confirmed by Mitali Holden ([id number]) on 10/09/2018 8:36:58 PM Referred By: MITALI HOLDEN Confirmed By:Mitali Holden
[2018-10-09] MEDS ORDERED: KETOROLAC 30 MG/1 ML SDV IVP ONE (21:24)
[2018-10-09 22:19] VITALS: BP 146/97
== END 2018-10-09 22:00 | disposition home or self-care (01) ==
LOC: CED 19:21
DX: R11.2 Nausea with vomiting, unspecified (principal); R07.9 Chest pain, unspecified; R19.7 Diarrhea, unspecified
CPT/HCPCS: 71046-PO; 80053-ER; 84484-ER; 85025-QW-ER; 96361-ER; 96374-ER; 99285-ER; J2405

== ENCOUNTER 2018-10-10 12:00 | Emergency (ER) | payer MEDICAID ==
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
[2018-10-10] MEDS: NS 1,000 ML IV ONE (12:42)
[2018-10-10] MEDS ORDERED: PROMETHAZINE HCL 25 MG/ML INJ IVP ONE (13:34)
[2018-10-10] MEDS ORDERED: KETAMINE 200 MG/20 ML VIAL IVP ONE (13:34)
[2018-10-10] MEDS ORDERED: HYDROmorphONE/DILAUDID 2 MG/ML INJ IVP ONE (13:41)
[2018-10-10] MEDS ORDERED: PANTOPRAZOLE SODIUM 40 MG VIAL IVP ONE (13:49)
[2018-10-10] MEDS ORDERED: DEXAMETHASONE 4 MG TAB PO ONE (14:20)
[2018-10-10] MEDS ORDERED: AMOXICILLIN/CLAVULANATE POT 875/125 MG TAB PO ONE (14:20)
[2018-10-10] MEDS ORDERED: NS 1,000 ML IV ONE (14:52)
[2018-10-10 17:32] VITALS: BP 142/96
--- NOTE | 2018-10-12 14:51 | CPEKG ---
Test Reason : OPEN Blood Pressure : / mmHG Vent. Rate : 078 BPM Atrial Rate : 078 BPM P-R Int : 137 ms QRS Dur : 085 ms QT Int : 359 ms P-R-T Axes : 006 057 040 degrees QTc Int : [address] elev, probable normal early repol pattern Confirmed by Cindy Cassidy ([id number]) on 10/12/2018 2:51:15 PM Referred By: Cindy Cassidy Confirmed By:Cindy Cassidy
== END 2018-10-10 16:02 | disposition home or self-care (01) ==
LOC: CED 12:00
DX: J01.40 Acute pansinusitis, unspecified (principal); R19.7 Diarrhea, unspecified; R07.9 Chest pain, unspecified; R10.12 Left upper quadrant pain; R11.2 Nausea with vomiting, unspecified
CPT/HCPCS: 70450-PO; 80048-ER; 84484-ER; 85025-QW-ER; 85379-QW-ER; 96361-ER; 96374-ER; 96375-ER; 99285-ER; J1170; J2550

== ENCOUNTER 2018-10-19 01:21 | Observation (INO) | payer OTHER, MEDICAID | END 2018-10-21 11:00 | disposition home or self-care (01) | LOC: CED 01:21 → CEDHOLD 04:41 → F2N 07:04 → F3E 17:31 ==

== ENCOUNTER 2018-11-07 06:08 | Emergency (ER) | payer MEDICAID, OTHER | END 2018-11-07 09:18 | disposition home or self-care (01) | LOC: CED 06:08 ==

== ENCOUNTER 2018-11-13 22:27 | Observation (INO) | payer MEDICAID, OTHER | END 2018-11-15 11:08 | disposition home or self-care (01) | LOC: CEDHOLD 11-14 00:50 → CED 22:27 → F2W 11-14 02:41 ==